=== PATIENT | male | born 1940 | race American Indian/Alaskan Native ===

== ENCOUNTER 2022-03-13 17:25 | Inpatient (IN) | payer MEDICARE ==
--- NOTE | 2022-03-13 18:04 | Emergency Department Report ---
ED General Adult HPI - General Chief complaint: Recheck/Abnormal Lab/Rx Stated complaint: ABNORMAL HEMOGLOBIN COUNT Time Seen by Provider: 03/13/22 17:52 Source: patient, EMS Mode of arrival: Stretcher Limitations: Physical Limitation - History of Present Illness Initial comments: THIS IS A 81 YEAR OLD MALE BROUGHT IN BY EMS; I RECEIVED REPORT FROM EMS. PER EMS, BROUGHT FROM EMS WITH CONCERN OF LOW HEMOGLOBIN THAT WAS CHECKED TODAY AT 6.4 AND PATIENT DENIES ANY COMPLAINTS. PATIENT HIMSELF DENIES ANY DISCOMFORT; DURING MY EVALUATION, PATIENT APPEARS TO BE AOX1. DON'T KNOW YEAR/MONTH, PRESIDENT, WHICH HOSPITAL HE IS AT. LOOKING AT THE PAPER WORK FROM [facility]IOR [facility], PATIENT HAVE MEDICAL HISTORY OF 1. CEREBRAL INFARCTION 2. HEMIPLEGIA, LEFT SIDE 3. DIABETES MELLITUS TYPE 2 4. MALIGNANT NEOPLASM OF PROSTATE 5. COGNITIVE COMMUNICATION DEFICIT 6. HYPERTENSION NO MEDICATION LIST; THEREFORE, UNKNOWN IF PATIENT ON ANTI-PLATELET/COAGULATION. Severity scale (0 -10): 0 - Related Data Allergies Allergy/AdvReac Type Severity Reaction Status Date / Time No Known Allergies Allergy Verified 03/13/22 21:19 ED Review of Systems ROS: Stated complaint: ABNORMAL HEMOGLOBIN COUNT Other details as noted in HPI Comment: All other systems reviewed and negative (DENIES ANY SYMPTOMS.) ED Past Medical Hx - Past Medical History Previous Medical History?: Yes Additional medical history: SEE HPI ED Physical Exam - General Limitations: Physical Limitation General appearance: alert, in no apparent distress - Head Head exam: Present: atraumatic, normocephalic, normal inspection - Eye Eye exam: Present: normal appearance, PERRL, EOMI Pupils: Present: normal accommodation - ENT ENT exam: Present: normal exam, mucous membranes dry - Neck Neck exam: Present: normal inspection, full ROM - Respiratory Respiratory exam: Present: normal lung sounds bilaterally. Absent: respiratory distress, wheezes, rales, rhonchi, stridor, accessory muscle use - Cardiovascular Cardiovascular Exam: Present: tachycardia, normal heart sounds - GI/Abdominal GI/Abdominal exam: Present: soft, normal bowel sounds. Absent: distended, tenderness, guarding, rebound, rigid - Back Exam Back exam: Present: normal inspection - Neurological Exam Neurological exam: Present: alert, altered (AOX1; UNKNOWN BASELINE.) - Psychiatric Psychiatric exam: Present: normal affect, normal mood - Skin Skin exam: Present: dry, normal color ED Course Vital Signs 03/13/22 03/13/22 03/13/22 17:27 22:06 22:11 Temperature 98.6 F 97.9 F Pulse Rate 120 H 123 H 117 H Respiratory 20 12 20 Rate Blood Pressure 101/59 Blood Pressure 110/70 [Left] O2 Sat by Pulse 99 Oximetry 03/13/22 03/13/22 22:15 22:21 Temperature 98.0 F Pulse Rate 126 H 124 H Respiratory 15 19 Rate Blood Pressure 105/68 105/68 Blood Pressure [Left] O2 Sat by Pulse 91 Oximetry - Reevaluation(s) Reevaluation #1: 03/13/22 20:00 BUN JUST MILDLY ELEVATED IN PATIENT WITH HG OF 6.4; DOUBT UGIB. THEREFORE WILL HOLD OFF PPI UNTIL OCCULT BLOOD TEST RESULT IS BACK WHICH I HAVE JUST PERFORMED. K LOW; WILL ORDER MG. WILL INITIATE TRANSFUSION. PATIENT WILL BE ADMITTED. STILL PENDING CT SCAN TO BE DONE FOR FURTHER EVALUATION OF CONSOLIDATION OF BILATERAL LUNGS. 03/13/22 20:02 03/13/22 21:06 STILL PENDING FOBT RESULT. 03/13/22 21:51 FOBT NEGATIVE; PENDING RN TO OBTAIN URINE WHICH PATIENT IS AWARE OF. 03/13/22 22:05 BNP ELEVATED; PATIENT DENIES SOB. WILL PAGE HOSPITALIST FOR ADMISSION FOR ANEMIA NOT 2/2 GIB AND ALSO HYPOKALEMIA. 03/13/22 22:[address] BUSBY WHO KINDLY ACCEPTED THE PATIENT. ED Medical Decision Making - Lab Data Result diagrams: 03/13/22 18:34 03/13/22 18:34 Critical care attestation.: If time is entered above; I have spent that time in minutes in the direct care of this critically ill patient, excluding procedure time. ED Disposition Clinical Impression: Hypokalemia, Normocytic anemia, not due to blood loss, CHF (congestive heart failure), Pleural effusion Disposition: ADMITTED INPATIENT Is pt being admited?: Yes Does the pt Need Aspirin: No Condition: Stable Referrals: PIERCE PHILLIPS MD [Primary Care Provider] - 3-5 Days Time of Disposition: 21:09
--- NOTE | 2022-03-13 18:29 | XRay Report ---
Chest single view INDICATION: Cough confusion IMPRESSION: Prominent consolidation involving both lower lungs, right worse than left. Signer Name: Andreas Merritt MD Signed: 03/13/2022 6:25 PM Workstation Name: [employer]
[2022-03-13 18:47] LABS: Hematocrit 20.1 % (30.3-42.9); Hemoglobin 6.4 gm/dl (10.1-14.3); Mean Corpuscular HGB Conc 32 % (30-34); Mean Corpuscular Volume 90 fl (79-97); Platelet Count 304 K/mm3 (140-440); Red Blood Count 2.23 M/mm3 (3.65-5.03)
[2022-03-13 18:49] LABS: Red Cell Distribution Width 20.1 % (13.2-15.2)
[2022-03-13 19:03] LABS: INR 1.15 (0.87-1.13)
[2022-03-13 19:04] LABS: Partial Thromboplastin Time 39.9 Sec. (24.2-36.6)
[2022-03-13 19:09] LABS: Blood Urea Nitrogen 18 mg/dL (7-17); Calcium 8.4 mg/dL (8.4-10.2); Hemolysis Index 2
[2022-03-13 19:10] LABS: BUN/Creatinine Ratio 30
--- NOTE | 2022-03-13 20:49 | Cat Scan Report ---
CT CHEST WITHOUT CONTRAST INDICATION / CLINICAL INFORMATION: BILATERAL CONSOLIDATION EVALUATION.. Pleural effusions TECHNIQUE: Axial CT images were obtained through the chest without contrast. All CT scans at this [facility] ation are performed using CT dose reduction for ALARA by means of automated exposure control. COMPARISON: None available. FINDINGS: HEART: Mildly enlarged. Suspect tiny pericardial effusion. CORONARY ARTERY CALCIFICATION: Present -- Moderate. THORACIC AORTA: No significant abnormality. MEDIASTINUM / BREANNE: No significant abnormality. PLEURA: Large bilateral pleural effusions, right greater than left. LUNGS: Dependent consolidation involving both lower lungs may be related to atelectasis given the siz e of bilateral pleural effusions. ADDITIONAL FINDINGS: None. UPPER ABDOMEN: Large hiatal hernia. SKELETAL SYSTEM: No significant abnormality. IMPRESSION: 1. Moderate to large bilateral pleural effusions, right greater than left. 2. Prominent hiatal hernia with evidence of mild gastroesophageal reflux. Bilateral areas of consolid ation within both lower lungs could be related to atelectasis however aspiration is difficult to comp letely exclude especially within the left lower lobe. Signer Name: Andreas Merritt MD Signed: 03/13/2022 8:44 PM Workstation Name: [employer]
[2022-03-13] MEDS: POTASSIUM CHLORIDE 10 MEQ 10 MEQ/100 ML BAG IV SCH (22:00)
[2022-03-13] MEDS ORDERED: POTASSIUM CHLORIDE ER 20 MEQ TAB PO ONE (22:08)
[2022-03-13] MEDS ORDERED: ACETAMINOPHEN 325 MG TAB PO PRN (22:40)
[2022-03-13] MEDS ORDERED: ONDANSETRON 4 MG/2 ML INJ IV PRN (22:40)
[2022-03-13] MEDS ORDERED: MORPHINE 4 MG/1 ML INJ IV PRN (22:40)
[2022-03-13] MEDS ORDERED: MAGNESIUM HYDROXIDE (MOM) ORAL LIQD UDC PO PRN (22:40)
[2022-03-13] MEDS ORDERED: MORPHINE 2 MG/1 ML INJ IV PRN (22:40)
--- NOTE | 2022-03-13 22:49 | History and Physical Report ---
History of Present Illness Date of examination: 03/13/22 Date of admission: 03/13/2022 Chief complaint: Altered Mental Status History of present illness: 81-year-old -[place] male resident of a residential with significant past medical history of hypertension, diabetes mellitus, CVA with left hemiparesis sent to the emergency room today for evaluation of changes in mental status and low hemoglobin. Routine labs were said to have been drawn at the residential patient was found to be anemic. There has been no history of GI bleed. It is not clear whether patient is on any nonsteroidal anti-inflammatory or any blood thinner as medication list is unavailable. There has been no history of fever or chills, no chest pain or shortness of breath, no headache or dizziness and no diaphoresis. Patient is not a very good historian however most of the history was obtained from the ER staff. Work-up in the emergency room today reveals hemoglobin of 6.4 and a potassium of 2.3 Patient is being prepared for packed red blood cell transfusion. Potassium will also be repleted. Past History Past Medical History: diabetes, hypertension, stroke (With left sided hemiparesis), other (H/O Prostate Ca.) Past Surgical History: Other (Unknown) Social history: other (Resides in a [facility]) Family history: no significant family history Medications and Allergies Allergies Allergy/AdvReac Type Severity Reaction Status Date / Time No Known Allergies Allergy Verified 03/13/22 21:19 Active Meds: Active Medications Acetaminophen (Acetaminophen 325 Mg Tab) 650 mg PO Q4H PRN PRN Reason: Pain MILD(1-3)/Fever >100.5/DIAZ Dextrose (Dextrose 50% In Water (25gm) 50 Ml Syringe) 50 ml IV Q30MIN PRN; Protocol PRN Reason: Hypoglycemia Heparin Sodium (Porcine) (Heparin 5,000 Unit/1 Ml Vial) 5,000 unit SUB-Q Q8HR IBRAHIMA Sodium Chloride (Nacl 0.9% 500 Ml) 500 mls @ 0 mls/hr IV ONCE ONE Stop: 03/13/22 23:08 Potassium Chloride (Kcl 10meq/100ml) 10 meq in 100 mls @ 100 mls/hr IV Q1H IBRAHIMA Stop: 03/14/22 01:59 Insulin Human Lispro (Insulin Lispro 100 Unit/Ml) 0 unit SUB-Q ACHS IBRAHIMA; Protocol Magnesium Hydroxide (Magnesium Hydroxide (Mom) Oral Liqd Udc) 30 ml PO Q4H PRN PRN Reason: Constipation Morphine Sulfate (Morphine 2 Mg/1 Ml Inj) 2 mg IV Q4H PRN PRN Reason: Pain, Moderate (4-6) Morphine Sulfate (Morphine 4 Mg/1 Ml Inj) 4 mg IV Q4H PRN PRN Reason: Pain , Severe (7-10) Ondansetron HCl (Ondansetron 4 Mg/2 Ml Inj) 4 mg IV Q8H PRN PRN Reason: Nausea And Vomiting Sodium Chloride (Sodium Chloride 0.9% 10 Ml Flush Syringe) 10 ml IV BID IBRAHIMA Sodium Chloride (Sodium Chloride 0.9% 10 Ml Flush Syringe) 10 ml IV PRN PRN PRN Reason: LINE FLUSH Review of Systems ROS unobtainable: due to mental status Exam - Constitutional Vitals: Temp Pulse Resp BP Pulse Ox 98.9 F 115 H 12 109/70 91 03/13/22 22:40 03/13/22 22:40 03/13/22 22:40 03/13/22 22:40 03/13/22 22:40 General appearance: Present: no acute distress, well-nourished, other (Moderate Pallor) - EENT Eyes: Present: PERRL, EOM intact. Absent: scleral icterus ENT: hearing intact, clear oral mucosa, dentition normal - Neck Neck: Present: supple, normal ROM - Respiratory Respiratory effort: normal Respiratory: bilateral: CTA - Cardiovascular Heart Sounds: Present: S1 & S2. Absent: gallop, systolic murmur, diastolic murmur, rub, click - Extremities Extremities: no ischemia, pulses intact, pulses symmetrical, No edema, normal temperature, normal color, Full ROM, abnormal (Left heel decubitus ulcer) Peripheral Pulses: within normal limits - Abdominal General gastrointestinal: Present: soft, non-tender, non-distended, normal bowel sounds. Absent: mass - Integumentary Integumentary: Present: clear, warm, dry, normal turgor. Absent: rash - Musculoskeletal Musculoskeletal: left sided weakness - Psychiatric Psychiatric: appropriate mood/affect, intact judgment & insight, memory intact, cooperative - Neurologic Neurologic: CNII-XII intact, other Results - Labs CBC & Chem 7: 03/13/22 18:34 09/15/22 18:34 Labs: Abnormal lab results 03/13/22 03/13/22 03/13/22 Range/Units 18:34 18:34 18:34 WBC 4.2 L (4.5-11.0) K/mm3 RBC 2.23 L (3.65-5.03) M/mm3 Hgb 6.4 L (10.1-14.3) gm/dl Hct 20.1 L (30.3-42.9) % RDW 20.1 H (13.2-15.2) % PT 16.0 H (12.2-14.9) Sec. INR 1.15 H (0.87-1.13) APTT 39.9 H (24.2-36.6) Sec. Potassium 2.3 L* (3.6-5.0) mmol/L Carbon Dioxide 33 H (22-30) mmol/L BUN 18 H (7-17) mg/dL NT-Pro-B Natriuret Pep (0-900) pg/mL Crossmatch 03/13/22 03/13/22 Range/Units 18:34 18:34 WBC (4.5-11.0) K/mm3 RBC (3.65-5.03) M/mm3 Hgb (10.1-14.3) gm/dl Hct (30.3-42.9) % RDW (13.2-15.2) % PT (12.2-14.9) Sec. INR (0.87-1.13) APTT (24.2-36.6) Sec. Potassium (3.6-5.0) mmol/L Carbon Dioxide (22-30) mmol/L BUN (7-17) mg/dL NT-Pro-B Natriuret Pep 2345 H (0-900) pg/mL Crossmatch See Detail Assessment and Plan Assessment: 1. Anemia-normocytic 2. Hypokalemia 3. History of CVA with left hemiparesis 4.. History of prostate cancer 5.. Diabetes mellitus 6. Hypertension-blood pressure stable 7. UTI Plan: 1. Patient admitted and will be prepared for packed red blood cell transfusion. Packed red blood cell transfusion etiology of anemia unclear. 2. Consult be placed to heme-onc for further evaluation and recommendations. 3. Potassium will be repleted and will monitor chemistry. 4. Attempts were made to get this comprehensive routine medications from the residential. We will resume as needed. 5. Patient placed on sliding scale insulin. Monitor Accu-Cheks closely. 6. Patient placed on empiric IV antibiotics for UTI DVT prophylaxis: Sequential compression device. CODE STATUS: Full code
[2022-03-13] MEDS ORDERED: SODIUM CHLORIDE 0.9% 500 ML 500 ML IV ONE (23:07)
[2022-03-13 23:25] LABS: Bacteria,Urine 3+ /HPF (Negative); Mucus,Urine FEW /HPF
[2022-03-13 23:28] LABS: Color,Urine Yellow (Yellow)
[2022-03-14] MEDS ORDERED: LIDOCAINE-MPF (1%) 10 MG/1 ML VIAL 5 ML INFILTRATI ONE (00:58)
[2022-03-14] MEDS: POTASSIUM CHLORIDE 10 MEQ 10 MEQ/100 ML BAG IV SCH ×3 (01:57→06:36)
[2022-03-14] MEDS ORDERED: POTASSIUM CHLORIDE ER 20 MEQ TAB PO ONE (02:30)
[2022-03-14] MEDS: HEPARIN 5,000 UNIT/1 ML VIAL SUB-Q SCH ×3 (06:37→22:26)
[2022-03-14 06:41] LABS: Basophils % (Auto) 0.2 % (0.0-1.8); Eosinophils % (Auto) 0.1 % (0.0-4.3); Hematocrit 25.6 % (30.3-42.9); Hemoglobin 8.1 gm/dl (10.1-14.3); Lymphocytes # (Auto) 0.8 K/mm3 (1.2-5.4); Lymphocytes % (Auto) 22.7 % (13.4-35.0); Mean Corpuscular HGB Conc 32 % (30-34); Mean Corpuscular Volume 90 fl (79-97); Monocytes # (Auto) 0.3 K/mm3 (0.0-0.8); Monocytes % (Auto) 9.7 % (0.0-7.3); Platelet Count 280 K/mm3 (140-440); Red Blood Count 2.83 M/mm3 (3.65-5.03); Red Cell Distribution Width 19.5 % (13.2-15.2)
[2022-03-14 06:57] LABS: Blood Urea Nitrogen 18 mg/dL (7-17); Calcium 8.1 mg/dL (8.4-10.2); Hemolysis Index 5
[2022-03-14 07:06] LABS: BUN/Creatinine Ratio 30
[2022-03-14] MEDS: INSULIN LISPRO 100 UNIT/ML SUB-Q SCH ×2 (07:30→11:30)
--- NOTE | 2022-03-14 08:18 | Hem/Onc Consultation ---
History of Present Illness - Reason for Consult Consult date: 03/14/22 Anemia - History of Present Illness Heme Consult CPT 33650 Dx Anemia This is a 81yo -[place] male resident of a skilled nursing who was transported to [facility] ED for altered mental status and anemia. Past medical history of hypertension, diabetes mellitus, and CVA with left hemiparesis. Routine labs were said to have been drawn at the skilled nursing patient was found to be anemic. No reports of GI bleed. It is not clear whether patient is on any nonsteroidal anti-inflammatory or any blood thinner as medication list is unavailable. Per chart review patient is not a very good historian however most of the history was obtained from the ER staff. Work-up in the emergency room today reveals hemoglobin of 6.4 and a potassium of 2.3. Hematology was consulted for evaluation of anemia. DATA REVIEWED BELOW IMP: Normocytic anemia with mild leukopenia No evidence of heme malignancy , r/o MM Coagulopathy, likely secondary to underlying liver dysfunction PLAN: Anemia work-up: SPEP w. DAR, LDH, retic, hgEP CT A/P r/o bleed, lymphadenopathy Transfuse 1 unit pRBC whenever HCT <23 Case d/w Dr. Baljeet Ochoa Laboratory Last Values WBC 3.4 K/mm3 (4.5-11.0) L 03/14/22 06:09 Hgb 8.1 gm/dl (10.1-14.3) L 03/14/22 06:09 Hct 25.6 % (30.3-42.9) L 03/14/22 06:09 MCV 90 fl (79-97) 03/14/22 06:09 Plt Count 280 K/mm3 (140-440) 03/14/22 06:09 Craig % (Auto) 9.7 % (0.0-7.3) H 03/14/22 06:09 Lymph # (Auto) 0.8 K/mm3 (1.2-5.4) L 03/14/22 06:09 PT 16.0 Sec. (12.2-14.9) H 03/13/22 18:34 INR 1.15 (0.87-1.13) H 03/13/22 18:34 APTT 39.9 Sec. (24.2-36.6) H 03/13/22 18:34 Creatinine 0.6 mg/dL (0.6-1.2) 03/14/22 06:09 Blood Type O POSITIVE 03/13/22 18:34 Antibody Screen Negative 03/13/22 18:34 Crossmatch See Detail 03/13/22 18:34 Past History Past Medical History: diabetes, hypertension, stroke (With left sided hemiparesis), other (H/O Prostate Ca.) Past Surgical History: Other (Unknown) Social history: other (Resides in a [facility]) Family history: no significant family history Medications and Allergies Allergies Allergy/AdvReac Type Severity Reaction Status Date / Time No Known Allergies Allergy Verified 03/13/22 21:19 Home Medications Medication Instructions Recorded Confirmed Last Taken Type No Known Home Medications [No 03/14/22 03/14/22 Unknown History Reported Home Medications] Active Meds: Active Medications Acetaminophen (Acetaminophen 325 Mg Tab) 650 mg PO Q4H PRN PRN Reason: Pain MILD(1-3)/Fever >100.5/DIAZ Ceftriaxone Sodium (Ceftriaxone 1 Gm Inj) 1 gm IM Q24H IBRAHIMA; Protocol Last Admin: 03/14/22 01:00 Dose: 1 gm Dextrose (Dextrose 50% In Water (25gm) 50 Ml Syringe) 0 ml IV Q30MIN PRN; Protocol PRN Reason: Hypoglycemia Heparin Sodium (Porcine) (Heparin 5,000 Unit/1 Ml Vial) 5,000 unit SUB-Q Q8HR IBRAHIMA Last Admin: 03/14/22 06:37 Dose: 5,000 unit Insulin Human Lispro (Insulin Lispro 100 Unit/Ml) 0 unit SUB-Q ACHS IBRAHIMA; Protocol Magnesium Hydroxide (Magnesium Hydroxide (Mom) Oral Liqd Udc) 30 ml PO Q4H PRN PRN Reason: Constipation Morphine Sulfate (Morphine 2 Mg/1 Ml Inj) 2 mg IV Q4H PRN PRN Reason: Pain, Moderate (4-6) Morphine Sulfate (Morphine 4 Mg/1 Ml Inj) 4 mg IV Q4H PRN PRN Reason: Pain , Severe (7-10) Ondansetron HCl (Ondansetron 4 Mg/2 Ml Inj) 4 mg IV Q8H PRN PRN Reason: Nausea And Vomiting Potassium Chloride (Potassium Chloride Er 20 Meq Tab) 40 meq PO Q4H IBRAHIAM Stop: 03/14/22 13:01 Sodium Chloride (Sodium Chloride 0.9% 10 Ml Flush Syringe) 10 ml IV BID IBRAHIMA Sodium Chloride (Sodium Chloride 0.9% 10 Ml Flush Syringe) 10 ml IV PRN PRN PRN Reason: LINE FLUSH Exam - Constitutional Vitals: Last Vital Signs Temp 98.2 F 03/14/22 05:13 Pulse 87 03/14/22 05:13 Resp 18 03/14/22 05:13 BP 105/74 03/14/22 05:13 Pulse Ox 96 03/14/22 05:13 Results - Labs lab Results: Laboratory Results - last 24 hr 03/13/22 03/13/22 03/13/22 18:34 18:34 18:34 WBC 4.2 L RBC 2.23 L Hgb 6.4 L Hct 20.1 L MCV 90 MCH 29 MCHC 32 RDW 20.1 H Plt Count 304 Lymph % (Auto) Craig % (Auto) Eos % (Auto) Baso % (Auto) Lymph # (Auto) Craig # (Auto) Eos # (Auto) Baso # (Auto) Seg Neutrophils % Seg Neutrophils # PT 16.0 H INR 1.15 H APTT 39.9 H Sodium 140 Potassium 2.3 L* Chloride 99.3 Carbon Dioxide 33 H Anion Gap 10 BUN 18 H Creatinine 0.6 Estimated GFR > 60 BUN/Creatinine Ratio 30 Glucose 97 Calcium 8.4 Magnesium NT-Pro-B Natriuret Pep Urine Color Urine Turbidity Specific [place] (Man) Ur Protein (Man) Ur Ketones (Man) Ur Nitrite (Man) Ur Reducing Substances Urine Bilirubin (Man) Urine Ictotest Leukocyte Esterase (Man) Urine WBC (Auto) Urine RBC (Auto) U Epithel Cells (Auto) Urine Bacteria (Auto) Urine RBC (Manual) Urine WBC Clumps Urine Mucus Urine Yeast (Budding) Blood Type Antibody Screen Crossmatch 03/13/22 03/13/22 03/13/22 18:34 18:34 20:08 WBC RBC Hgb Hct MCV MCH MCHC RDW Plt Count Lymph % (Auto) Craig % (Auto) Eos % (Auto) Baso % (Auto) Lymph # (Auto) Craig # (Auto) Eos # (Auto) Baso # (Auto) Seg Neutrophils % Seg Neutrophils # PT INR APTT Sodium Potassium Chloride Carbon Dioxide Anion Gap BUN Creatinine Estimated GFR BUN/Creatinine Ratio Glucose Calcium Magnesium 1.80 NT-Pro-B Natriuret Pep 2345 H Urine Color Urine Turbidity Specific [place] (Man) Ur Protein (Man) Ur Ketones (Man) Ur Nitrite (Man) Ur Reducing Substances Urine Bilirubin (Man) Urine Ictotest Leukocyte Esterase (Man) Urine WBC (Auto) Urine RBC (Auto) U Epithel Cells (Auto) Urine Bacteria (Auto) Urine RBC (Manual) Urine WBC Clumps Urine Mucus Urine Yeast (Budding) Blood Type O POSITIVE Antibody Screen Negative Crossmatch See Detail 03/13/22 03/14/22 03/14/22 Unknown 06:09 06:09 WBC 3.4 L RBC 2.83 L Hgb 8.1 L Hct 25.6 L MCV 90 MCH 29 MCHC 32 RDW 19.5 H Plt Count 280 Lymph % (Auto) 22.7 Craig % (Auto) 9.7 H Eos % (Auto) 0.1 Baso % (Auto) 0.2 Lymph # (Auto) 0.8 L Craig # (Auto) 0.3 Eos # (Auto) 0.0 Baso # (Auto) 0.0 Seg Neutrophils % 67.3 Seg Neutrophils # 2.3 PT INR APTT Sodium 141 Potassium 3.0 L D Chloride 98.4 Carbon Dioxide 33 H Anion Gap 13 BUN 18 H Creatinine 0.6 Estimated GFR > 60 BUN/Creatinine Ratio 30 Glucose 166 H Calcium 8.1 L Magnesium NT-Pro-B Natriuret Pep Urine Color Yellow Urine Turbidity Hazy Specific [place] (Man) 1.010 Ur Protein (Man) 1+ Ur Ketones (Man) Negative Ur Nitrite (Man) Negative Ur Reducing Substances Not Reportable Urine Bilirubin (Man) Negative Urine Ictotest Not Reportable Leukocyte Esterase (Man) Small Urine WBC (Auto) 183.0 H Urine RBC (Auto) 17.0 U Epithel Cells (Auto) 1.0 Urine Bacteria (Auto) 3+ Urine RBC (Manual) 5+ Urine WBC Clumps 2+ Urine Mucus Few Urine Yeast (Budding) 3+ Blood Type Antibody Screen Crossmatch
[2022-03-14] MEDS: POTASSIUM CHLORIDE ER 20 MEQ TAB PO SCH ×2 (09:40→14:37)
[2022-03-14] MEDS ORDERED: SODIUM CHLORIDE 0.9% 1000 ML 1,000 ML IV ONE (10:50)
--- NOTE | 2022-03-14 13:27 | Electrocardiograph Report ---
[facility] Test Date: 2022-03-14 Test Time: 07:53:34 Pat Name: ROBERTH THOMPSON Department: Room: A374 1 Gender: M Assistant Secretary: VICTOR M : 1940 Requested By: NGOZI AVILA Order Number: [id number] Reading MD: Mariella Chirinos Measurements Intervals Hugo Rate: 118 P: [place]: QRS: -4 QRSD: 100 T: QT: 427 QTc: 599 Interpretive Statements Atrial fibrillation with rapid ventricular rate Occasional ventricular premature complex Anterior infarct, old Prolonged QT interval No previous ECG available for comparison Electronically Signed On 03-14-2022 13:27:09 EDT by Mariella Chirinos
--- NOTE | 2022-03-14 14:20 | Discharge Summary ---
Providers - Providers Date of Admission: 03/13/22 22:41 Date of discharge: 03/14/22 Attending physician: JAN FINLEY MD 03/13/22 22:25 Consult to Wound/ET Nurse [CONS] Urgent Reason For Exam: wound eval 03/13/22 22:40 Consult to Physician [CONS] Routine Comment: Consulting Provider: GERARDO HASTINGS Physician Instructions: Reason For Exam: Anemia- Normocytic 03/13/22 22:41 Consult to Dietitian/Nutrition [CONS] Routine Physician Instructions: Reason For Exam: Reason for Consult: Diet education Primary care physician: PIERCE PHILLIPS MD Hospitalization Condition: Stable Disposition: 30 STILL A PATIENT Exam - Constitutional Vitals: Temp Pulse Resp BP Pulse Ox 97.0 F L 122 H 18 86/59 99 03/14/22 10:26 03/14/22 10:26 03/14/22 10:26 03/14/22 10:26 03/14/22 10:26 Plan Care Plan Goals: Please follow with your primary care provider. Please take all medications as they are prescribed to you. There was no observed bleeding during this hospitalization. Follow up with: PIERCE PHILLIPS MD [Primary Care Provider] - 3-5 Days Prescriptions: levoFLOXacin [Levaquin] 250 mg PO QDAY 5 Days #5 tablet
--- NOTE | 2022-03-14 14:55 | Cat Scan Report ---
CTA ABDOMEN AND PELVIS WITHOUT AND WITH IV CONTRAST INDICATION / CLINICAL INFORMATION: Rule out bleed, lymphadenopathy. OK to change per Dr. Ochoa.. TECHNIQUE: Axial CT images were obtained through the abdomen and pelvis before and after after injection of IV c ontrast. 3 plane MIP / 3D reconstructions were produced. All CT scans at this location are performed using CT dose reduction for ALARA by means of automated exposure control. Any percent stenosis measur ements are based on criteria similar to NASCET. COMPARISON: None available. FINDINGS: Aorta: Mild scattered atherosclerotic plaque without stenosis or aneurysm. Renal arteries: No significant abnormality. Celiac artery: Mild atherosclerotic plaque without flow-limiting stenosis or aneurysm. Superior Mesenteric Artery: Mild atheromatous plaque without flow-limiting stenosis or aneurysm. Inferior mesenteric artery: No significant abnormality. Right Iliac Arteries: Scattered atherosclerotic plaque without flow-limiting stenosis or aneurysm.. Left Iliac Arteries: Scattered atherosclerotic plaque without flow-limiting stenosis or aneurysm.. Additional Findings: Persistent small bilateral pleural effusions and bibasilar consolidations. High attenuation material in the gallbladder is likely contrast from the previous exam. IVC filter in plac e in the infrarenal IVC. Persistent large hiatal hernia. Skeletal Structures: No aggressive appearing bone lesions. Diffuse degenerative changes in the spine. IMPRESSION: 1. No definite bleeding in the abdomen or pelvis. No acute findings. 2. Persistent bilateral pleural effusions and lower lobe consolidations in the lungs. 3. Persistent large hiatal hernia. Signer Name: Nelson Ayala MD Signed: 03/14/2022 2:51 PM Workstation Name: [facility]
[2022-03-14] MEDS: cefTRIAXone/NS 1 GM/50 ML 1 GM/50 ML BAG IV SCH (22:25)
[2022-03-14] MEDS ORDERED: SODIUM CHLORIDE 0.9% 250ML 250 ML IV ONE (22:27)
[2022-03-14] MEDS ORDERED: SODIUM CHLORIDE 0.9% 500 ML 0 ML ONE (23:27)
[2022-03-14] MEDS ORDERED: METOPROLOL TARTRATE 5 MG/5 ML INJ IV ONE (23:35)
[2022-03-15] MEDS ORDERED: AMIODARONE 150 MG in DEXTROSE 5% IN WATER 97 ML IV ONE (00:12)
[2022-03-15] MEDS: INSULIN LISPRO 100 UNIT/ML SUB-Q SCH ×3 (00:12→11:50)
[2022-03-15] MEDS ORDERED: SODIUM CHLORIDE 0.9% 1000 ML 1,000 ML ONE (00:54)
[2022-03-15] MEDS ORDERED: SODIUM CHLORIDE 0.9% 250ML 250 ML IV ONE (00:54)
[2022-03-15] MEDS ORDERED: AMIODARONE 150 MG/100 ML-ED 150 MG/100 ML BAG IV ONE (01:25)
[2022-03-15] MEDS: AMIODARONE HCL 450 MG in DEXTROSE 5% IN WATER 241 ML IV SCH ×2 (02:25→14:02)
[2022-03-15 06:11] LABS: Hematocrit 17.2 % (35.5-45.6); Hemoglobin 5.5 gm/dl (11.8-15.2)
[2022-03-15] MEDS ORDERED: SODIUM CHLORIDE 0.9% 500 ML 500 ML IV NR ×2 (07:34→09:38)
--- NOTE | 2022-03-15 08:44 | Consultation ---
History of Present Illness Consult date: 03/15/22 History of present illness: 81-year-old -[place] male resident of a long-term with significant past medical history of hypertension, diabetes mellitus, CVA with left hemiparesis sent to the emergency room today for evaluation of changes in mental status and low hemoglobin. Routine labs were said to have been drawn at the long-term patient was found to be anemic. There has been no history of GI bleed. It is not clear whether patient is on any nonsteroidal anti-inflammatory or any blood thinner as medication list is unavailable. Patient has historyof prostate CA There has no history of fever or chills, no chest pain or shortness of breath, no headache or dizziness and no diaphoresis. Patient denies any history of smoking, alcohol or drug abuse. Used to work as brickmason apprentice. Not . Has four children. No known drug allergies. Work-up in the emergency room reveals hemoglobin of 6.4 and a potassium of 2.3 Patient received transfusion and Potassium supplemented. Patient sleeping but arousable. Patient weak, Patient is on room air. O2 saturation 92%. No acute respiratory distress at rest. Patient afebrile. No leukocytosis. Blood pressure 103/53. Pulse 111, Respirations 15. Patients SARS- COV -2 (PCR) positive. Chest xray 03/13/22 reported Prominent consolidation involving both lower lungs, right worse than left. CT of chest done 03/13/22 reported Moderate to large bilateral pleural effusions, right greater than left. Prominent hiatal hernia with evidence of mild gastroesophageal reflux. Bilateral areas of consolidation within both lower lungs could be related to atelectasis however aspiration is difficult to completely exclude especially within the left lower lobe. Patient is on ceftriaxone and famotidine. Recommend DVT prophylaxis. SCDs Recommend O2 2 litres via nasal canula. COVID precautions. Past History Past Medical History: diabetes, hypertension, stroke (With left sided hemiparesis), other (H/O Prostate Ca.) Past Surgical History: Other (Unknown) Social history: other (Resides in a Snf) Family history: no significant family history Medications and Allergies Allergies Allergy/AdvReac Type Severity Reaction Status Date / Time No Known Allergies Allergy Verified 03/13/22 21:19 Home Medications Medication Instructions Recorded Confirmed Last Taken Type Potassium Chloride 10 meq PO QDAY 14 Days #14 tab 03/14/22 Unknown Rx levoFLOXacin [Levaquin] 250 mg PO QDAY 5 Days #5 tablet 03/14/22 Unknown Rx Active Meds: Active Medications Acetaminophen (Acetaminophen 325 Mg Tab) 650 mg PO Q4H PRN PRN Reason: Pain MILD(1-3)/Fever >100.5/DIAZ Dextrose (Dextrose 50% In Water (25gm) 50 Ml Syringe) 0 ml IV Q30MIN PRN; Protocol PRN Reason: Hypoglycemia Famotidine (Famotidine 20 Mg/2 Ml Inj) 20 mg IV QDAY IBRAHIMA Ceftriaxone Sodium (Rocephin/Ns 1 Gm/50 Ml) 1 gm in 50 mls @ 100 mls/hr IV Q24H IBRAHIMA; Protocol Last Admin: 03/14/22 22:25 Dose: 100 mls/hr AMIODARONE HCL 450 mg/ (Dextrose) 250 mls @ 33.333 mls/hr IV DIRECT IBRAHIMA; Protocol Last Admin: 03/15/22 02:25 Dose: 1 mg/min, 33.333 mls/hr Sodium Chloride (Nacl 0.9% 500 Ml) 500 mls @ 0 mls/hr IV ONCE NR Stop: 03/15/22 18:00 Insulin Human Lispro (Insulin Lispro 100 Unit/Ml) 0 unit SUB-Q ACHS IBRAHIMA; Protocol Last Admin: 03/15/22 00:12 Dose: 2 unit Magnesium Hydroxide (Magnesium Hydroxide (Mom) Oral Liqd Udc) 30 ml PO Q4H PRN PRN Reason: Constipation Ondansetron HCl (Ondansetron 4 Mg/2 Ml Inj) 4 mg IV Q8H PRN PRN Reason: Nausea And Vomiting Potassium Chloride (Potassium Chloride Er 20 Meq Tab) 40 meq PO QDAY [facility] Sodium Chloride (Sodium Chloride 0.9% 10 Ml Flush Syringe) 10 ml IV BID IBRAHIMA Last Admin: 03/14/22 22:27 Dose: 10 ml Sodium Chloride (Sodium Chloride 0.9% 10 Ml Flush Syringe) 10 ml IV PRN PRN PRN Reason: LINE FLUSH Review of Systems All systems: negative Physical Examination Vital signs: Vital Signs Temp Pulse Resp BP Pulse Ox 98.6 F 120 H 20 110/70 99 03/13/22 17:27 03/13/22 17:27 03/13/22 17:27 03/13/22 17:27 09/15/22 17:27 General appearance: no acute distress, other (Weak, sleeping but arousable.) Eyes: non-icteric ENT: oropharynx dry Neck: supple, no JVD Ascultation: Bilateral: diminished breath sounds Cardiovascular: other (Tachycardia) Gastrointestinal: hypoactive bowel sounds, soft, non-tender Integumentary: normal Extremities: no cyanosis, no edema Musculoskeletal: no deformities Gait: other (Unable to evaluate at this time.) pupils equal and round, other (left hemipresis.) depressed Results - Laboratory Findings CBC and BMP: 03/15/22 05:11 03/14/22 13:17 PT/INR, D-dimer PT 16.0 Sec. (12.2-14.9) H 03/13/22 18:34 INR 1.15 (0.87-1.13) H 03/13/22 18:34 Abnormal lab findings: Abnormal Labs 03/13/22 03/13/22 03/13/22 18:34 18:34 18:34 WBC 4.2 L RBC 2.23 L Hgb 6.4 L Hct 20.1 L RDW 20.1 H Evans % (Auto) Lymph # (Auto) Percent Retic PT 16.0 H INR 1.15 H APTT 39.9 H Potassium 2.3 L* Carbon Dioxide 33 H BUN 18 H Glucose POC Glucose Calcium Lactate Dehydrogenase NT-Pro-B Natriuret Pep Urine WBC (Auto) SARS-CoV-2 (PCR) Crossmatch 03/13/22 03/13/22 03/13/22 18:34 18:34 Unknown WBC RBC Hgb Hct RDW Evans % (Auto) Lymph # (Auto) Percent Retic PT INR APTT Potassium Carbon Dioxide BUN Glucose POC Glucose Calcium Lactate Dehydrogenase NT-Pro-B Natriuret Pep 2345 H Urine WBC (Auto) 183.0 H SARS-CoV-2 (PCR) Crossmatch See Detail 03/14/22 03/14/22 03/14/22 06:09 06:09 07:09 WBC 3.4 L RBC 2.83 L Hgb 8.1 L Hct 25.6 L RDW 19.5 H Evans % (Auto) 9.7 H Lymph # (Auto) 0.8 L Percent Retic PT INR APTT Potassium 3.0 L D Carbon Dioxide 33 H BUN 18 H Glucose 166 H POC Glucose 151 H Calcium 8.1 L Lactate Dehydrogenase NT-Pro-B Natriuret Pep Urine WBC (Auto) SARS-CoV-2 (PCR) Crossmatch 03/14/22 03/14/22 03/14/22 11:09 13:17 13:17 WBC RBC Hgb Hct RDW Evans % (Auto) Lymph # (Auto) Percent Retic 2.62 H PT INR APTT Potassium 3.2 L Carbon Dioxide BUN Glucose POC Glucose 152 H Calcium Lactate Dehydrogenase 244 H NT-Pro-B Natriuret Pep Urine WBC (Auto) SARS-CoV-2 (PCR) Crossmatch 03/14/22 03/14/22 03/14/22 15:10 16:43 22:16 WBC RBC Hgb Hct RDW Evans % (Auto) Lymph # (Auto) Percent Retic PT INR APTT Potassium Carbon Dioxide BUN Glucose POC Glucose 131 H 199 H Calcium Lactate Dehydrogenase NT-Pro-B Natriuret Pep Urine WBC (Auto) SARS-CoV-2 (PCR) Positive A Crossmatch 03/14/22 03/15/22 23:26 05:11 WBC RBC Hgb 5.5 L* Hct 17.2 L* D RDW Evans % (Auto) Lymph # (Auto) Percent Retic PT INR APTT Potassium Carbon Dioxide BUN Glucose POC Glucose 158 H Calcium Lactate Dehydrogenase NT-Pro-B Natriuret Pep Urine WBC (Auto) SARS-CoV-2 (PCR) Crossmatch - Diagnostic Findings Chest x-ray: report reviewed, image reviewed CT scan - chest: report reviewed, image reviewed Additional studies: Chest single view 03/13/22 INDICATION: Cough confusion IMPRESSION: Prominent consolidation involving both lower lungs, right worse than left. CT CHEST WITHOUT CONTRAST 03/13/22 INDICATION / CLINICAL INFORMATION: BILATERAL CONSOLIDATION EVALUATION.. Pleural effusions TECHNIQUE: Axial CT images were obtained through the chest without contrast. All CT scans at this location are performed using CT dose reduction for ALARA by means of automated exposure control. COMPARISON: None available. FINDINGS: HEART: Mildly enlarged. Suspect tiny pericardial effusion. CORONARY ARTERY CALCIFICATION: Present -- Moderate. THORACIC AORTA: No significant abnormality. MEDIASTINUM / BREANNE: No significant abnormality. PLEURA: Large bilateral pleural effusions, right greater than left. LUNGS: Dependent consolidation involving both lower lungs may be related to atelectasis given the size of bilateral pleural effusions. ADDITIONAL FINDINGS: None. UPPER ABDOMEN: Large hiatal hernia. SKELETAL SYSTEM: No significant abnormality. IMPRESSION: 1. Moderate to large bilateral pleural effusions, right greater than left. 2. Prominent hiatal hernia with evidence of mild gastroesophageal reflux. Bilateral areas of consolidation within both lower lungs could be related to atelectasis however as piration is difficult to completely exclude especially within the left lower lobe. Assessment and Plan 81-year-old -[place] male resident of a long-term with significant past medical history of hypertension, diabetes mellitus, CVA with left hemiparesis sent to the emergency room today for evaluation of changes in mental status and low hemoglobin. Routine labs were said to have been drawn at the long-term patient was found to be anemic. There has been no history of GI bleed. It is not clear whether patient is on any nonsteroidal anti-inflammatory or any blood thinner as medication list is unavailable. Patient has historyof prostate CA There has no history of fever or chills, no chest pain or shortness of breath, no headache or dizziness and no diaphoresis. Patient denies any history of smoking, alcohol or drug abuse. Used to work as [employer]. Not . Has four children. No known drug allergies. Work-up in the emergency room reveals hemoglobin of 6.4 and a potassium of 2.3 Patient received transfusion and Potassium supplemented. Patient sleeping but arousable. Patient weak, Patient is on room air. O2 saturation 92%. No acute respiratory distress at rest. Patient afebrile. No leukocytosis. Blood pressure 103/53. Pulse 111, Respirations 15. Patients SARS- COV -2 (PCR) positive. Chest xray 03/13/22 reported Prominent consolidation involving both lower lungs, right worse than left. CT of chest done 03/13/22 reported Moderate to large bilateral pleural effusions, right greater than left. Prominent hiatal hernia with evidence of mild gastroesophageal reflux. Bilateral areas of consolidation within both lower lungs could be related to atelectasis however aspiration is difficult to completely exclude especially within the left lower lobe. Patient is on ceftriaxone and famotidine. Recommend DVT prophylaxis. SCDs Recommend O2 2 litres via nasal canula. COVID precautions. I spent critical care time of 40 minutes obtaining history, review the chart, examine the patient, review Chest xray, CAT scan of chest, lab results, talking to the nursing staff, respiratory therapy and work up plan of treatment in this critically ill patient. - Patient Problems (1) Normocytic anemia, not due to blood loss Current Visit: Yes Status: Acute Plan to address problem: Patient received blood transfusion. Patients HGB dropped again to day to 5.5. Recommend blood transfusion and Keep hgb above 7.0. Recommend to consult gastroenterology and hematology. (2) CHF (congestive heart failure) Current Visit: Yes Status: Acute Plan to address problem: Management as per cardiology. (3) Hypokalemia Current Visit: Yes Status: Acute Plan to address problem: Supplementing K+ Recommend to repeat BMP. (4) Pleural effusion Current Visit: Yes Status: Acute Plan to address problem: Recommend thoracentesis under ultrasound by interventional radiology when patient is more stable. (5) Coronavirus infection Current Visit: Yes Status: Acute Plan to address problem: Management as per infectious disease consultants. Recommend Hare virus precautions. (6) HTN (hypertension) Current Visit: Yes Status: Acute Plan to address problem: Management as per primary care. (7) Diabetes Current Visit: Yes Status: Acute Plan to address problem: Management as per primary care. (8) CVA (cerebral vascular accident) Current Visit: Yes Status: Acute Plan to address problem: History of CVA and left hemiplegia. Management as per primary care.
--- NOTE | 2022-03-15 09:47 | Electrocardiograph Report ---
[facility], [place] Test Date: 2022-03-14 Test Time: 21:23:38 Pat Name: ROBERTH THOMPSON Department: Room: A251 1 Gender: M Bellman Captain: [id number] : 1940 Requested By: JAN FINLEY Order Number: [id number] Reading MD: Silver Ackerman Measurements Intervals [place] Rate: 134 P: PA: QRS: 0 QRSD: 88 T: QT: 343 QTc: 512 Interpretive Statements Atrial fibrillation with rapid V-rate Low voltage, extremity leads Consider anterior infarct Nonspecific T abnormalities, lateral leads Compared to ECG 03/14/2022 07:53:34 Prolonged QT interval no longer present Myocardial infarct finding still present Electronically Signed On 03-15-2022 9:46:46 EDT by Silver Ackerman
[2022-03-15] MEDS ORDERED: POTASSIUM CHLORIDE ER 20 MEQ TAB PO SCH (10:00)
[2022-03-15] MEDS: FAMOTIDINE 20 MG/2 ML INJ IV SCH (10:39)
--- NOTE | 2022-03-15 11:58 | Progress Note ---
<FAHAD CRONIN - Last Filed: 03/15/22 16:48> Assessment and Plan Assessment and plan: This is a 81-year-old AA who reside in a detention with known past medical history of hypertension, diabetes mellitus, CVA with left hemiparesis, and prostate CA initially admitted to the floor for AMS and normocytic anemia. Patient ws transferred to the ICU on 03/14 for new onset Afib with RVR and hypotension Hospital Course to Date: 03/15: Patient remains in Afib, HR in the 90 to 110s, remains on amiodarone gtt. BP remains labile, not on any pressors. Hgb is 5.5 this am, no s/s of any active bleeding, 2units of PRBCs ordered, will hold AC for now. Hematology recommendations noted. Patient is also with low grade temp, remains on IV Rocephin for UTI, cultures and procal pending. COVID PCR came back positive, patient is stable on RA. Will continue to monitor for now. Cardiology consulted and [facility] is also following. Assessment and Plan #New Onset Atrial Fibrillation with RVR #H/o Hypertension -Remains in AFIB with RVR, BP labile -on Amiodarone gtt -Cardiology consulted -Hold all antihypertensive agents -Continue blood pressure monitor per protocol -Maintain MAP above 65 -Not a candidate for AC due to anemia #Normocytic anemia -Baseline hemoglobin unknown, presented with hemoglobin 6.4 -S/p 1 unit of PRBCs -CT angiogram of the abdomen pelvis did not reveal evidence of bleed, fecal occult negative -source of blood loss unknown -H&H dropped again this am -No s/s of any active bleeding, 2units of PRBCs ordered -Hematology oncology consulted, assistance appreciated -Stat labs pending #Bilateral Pleural Effusion #COVID infection -Remains stable on RA -PRN O2 supplemenation at 2L NC -CCM is following -Aspiration precaution -Continue SPO2 monitoring for SPO2 goal above 92% #Acute cystitis with hematuria #COVID infection -continue rocephin -Cultures pending, check procal -COVID PCR +, patient stable on RA -Continue to monitor #Hypokalemia -K-repleted, repeat labs pending -Continue to monitor and replace electrolytes as needed -may require supplementation after discharge #Prostate Cancer -Was on Bicalutamine at the detention -Med on hold for now -Continue supportive care #History of CVA with left hemiparesis -Chronic, continue supportive measures -Frequent reorientation -Avoid benzodiazepine to reduce the possibility of delirium -PRN Analgesia for pain control -Maintenance of sleep-wake cycle -Fall precautions #Type 2 Diabetes Mellitus -BG check and SSI ACHS -Avoid hypoglycemia -Hypoglycemic protocol #Advanced care planning -Disease education conducted, care plan discussed, diagnoses discussed, prognosis discussed, and patient acknowledges understanding with care plan #Discharge planning -Plan to discharge patient back to detention once clinically stable The high probability of a clinically significant, sudden or life threatening deterioration of the [multiple] system(s) required my full and direct attention, intervention and personal management. The aggregate critical care time was [60] minutes. This time is in addition to time spent performing reported procedures but includes the following: [x] Data Review and interpretation [x] Patient assessment and monitoring of vital signs [x] Documentation [x] Medication orders and management Disposition Plan: ICU Total Time Spent with Patient (Minutes): 60 History Interval history: Patient seen and examined at the bedside. Awake but confused, following simple commands, on RA. Denied any pain nor any discomfort at this time. In AFib RVR on the monitor, BP is labile. On Amiodarone gtt. No report of any s/s of any active bleeding. Hospitalist Physical - Constitutional Vitals: Temp Pulse Resp BP Pulse Ox 99.3 F 102 H 14 96/49 100 03/15/22 08:00 03/15/22 10:01 03/15/22 10:01 03/15/22 10:01 03/15/22 10:01 General appearance: Present: no acute distress, well-nourished - EENT Eyes: Present: PERRL ENT: hearing intact - Neck Neck: Present: normal ROM - Respiratory Respiratory effort: normal Respiratory: bilateral: diminished - Cardiovascular Rhythm: regular Heart Sounds: Present: S1 & S2 - Extremities Extremities: no ischemia, pulses intact, pulses symmetrical Extremity abnormal: edema - Peripheral Assessment Left Upper Extremity Edema Type: Pitting Edema Degree: 3+ Capillary Refill: < 3 seconds Skin Temperature: Warm Bilateral Lower Extremity Edema Type: Pitting Edema Degree: 2+ Capillary Refill: < 3 seconds Skin Temperature: Warm Generalized Edema Type: Non-pitting Edema Degree: 2+ Capillary Refill: < 3 seconds Skin Temperature: Warm Peripheral Pulses: within normal limits - Abdominal General gastrointestinal: soft, non-distended, normal bowel sounds - Integumentary Integumentary: Present: warm, dry - Psychiatric Psychiatric: appropriate mood/affect, cooperative, other (Confused) - Neurologic Neurologic: moves all extremities (LUE weakness), other (Bilateral foot drops) - Allied Health Allied health notes reviewed: nursing, case management Results - Labs CBC & Chem 7: 03/15/22 05:11 03/14/22 13:17 Labs: Laboratory Last Values WBC 3.4 K/mm3 (4.5-11.0) L 03/14/22 06:09 RBC 2.83 M/mm3 (3.65-5.03) L 03/14/22 06:09 Hgb 5.5 gm/dl (11.8-15.2) L* 03/15/22 05:11 Hct 17.2 % (35.5-45.6) L* D 03/15/22 05:11 MCV 90 fl (79-97) 03/14/22 06:09 MCH 29 pg (28-32) 03/14/22 06:09 MCHC 32 % (30-34) 03/14/22 06:09 RDW 19.5 % (13.2-15.2) H 03/14/22 06:09 Plt Count 280 K/mm3 (140-440) 03/14/22 06:09 Lymph % (Auto) 22.7 % (13.4-35.0) 03/14/22 06:09 Ness % (Auto) 9.7 % (0.0-7.3) H 03/14/22 06:09 Eos % (Auto) 0.1 % (0.0-4.3) 03/14/22 06:09 Baso % (Auto) 0.2 % (0.0-1.8) 03/14/22 06:09 Lymph # (Auto) 0.8 K/mm3 (1.2-5.4) L 03/14/22 06:09 Ness # (Auto) 0.3 K/mm3 (0.0-0.8) 03/14/22 06:09 Eos # (Auto) 0.0 K/mm3 (0.0-0.4) 03/14/22 06:09 Baso # (Auto) 0.0 K/mm3 (0.0-0.1) 03/14/22 06:09 Seg Neutrophils % 67.3 % (40.0-70.0) 03/14/22 06:09 Seg Neutrophils # 2.3 K/mm3 (1.8-7.7) 03/14/22 06:09 Percent Retic 2.62 % (0.78-2.58) H 03/14/22 13:17 PT 16.0 Sec. (12.2-14.9) H 03/13/22 18:34 INR 1.15 (0.87-1.13) H 03/13/22 18:34 APTT 39.9 Sec. (24.2-36.6) H 03/13/22 18:34 Sodium 141 mmol/L (137-145) 03/14/22 06:09 Potassium 3.2 mmol/L (3.6-5.0) L 03/14/22 13:17 Chloride 98.4 mmol/L (98-107) 03/14/22 06:09 Carbon Dioxide 33 mmol/L (22-30) H 03/14/22 06:09 Anion Gap 13 mmol/L 03/14/22 06:09 BUN 18 mg/dL (7-17) H 03/14/22 06:09 Creatinine 0.6 mg/dL (0.6-1.2) 03/14/22 06:09 Estimated GFR > 60 ml/min 03/14/22 06:09 BUN/Creatinine Ratio 30 % 03/14/22 06:09 Glucose 166 mg/dL (65-100) H 03/14/22 06:09 POC Glucose 158 mg/dL (70-105) H 03/14/22 23:26 Calcium 8.1 mg/dL (8.4-10.2) L 03/14/22 06:09 Magnesium 1.80 mg/dL (1.7-2.3) 03/13/22 20:08 Lactate Dehydrogenase 244 units/L (91-180) H 03/14/22 13:17 NT-Pro-B Natriuret Pep 2345 pg/mL (0-900) H 03/13/22 18:34 Urine Color Yellow (Yellow) 03/13/22 Unknown Urine Turbidity Hazy (Clear) 03/13/22 Unknown Specific [place] (Man) 1.010 (1.003-1.030) 03/13/22 Unknown Ur Protein (Man) 1+ mg/dL (Negative) 03/13/22 Unknown Ur Ketones (Man) Negative (Negative) 03/13/22 Unknown Ur Nitrite (Man) Negative (Negative) 03/13/22 Unknown Ur Reducing Substances Not Reportable 03/13/22 Unknown Urine Bilirubin (Man) Negative (Negative) 03/13/22 Unknown Urine Ictotest Not Reportable 03/13/22 Unknown Leukocyte Esterase (Man) Small (Negative) 03/13/22 Unknown Urine WBC (Auto) 183.0 /HPF (0.0-6.0) H 03/13/22 Unknown Urine RBC (Auto) 17.0 /HPF (0.0-6.0) 03/13/22 Unknown U Epithel Cells (Auto) 1.0 /HPF (0-13.0) 03/13/22 Unknown Urine Bacteria (Auto) 3+ /HPF (Negative) 03/13/22 Unknown Urine RBC (Manual) 5+ (Negative) 03/13/22 Unknown Urine WBC Clumps 2+ /HPF 03/13/22 Unknown Urine Mucus Few /HPF 03/13/22 Unknown Urine Yeast (Budding) 3+ /HPF 03/13/22 Unknown SARS-CoV-2 (PCR) Positive (Negative) A 03/14/22 15:10 Blood Type O POSITIVE 03/13/22 18:34 Antibody Screen Negative 03/13/22 18:34 Direct Antiglob Test Negative 03/15/22 05:11 CLEMENT, Poly Interpret Negative 03/15/22 05:11 Crossmatch See Detail 03/13/22 18:34 Bourne/IV: Voiding Method Condom Catheter Active Medications - Current Medications Current Medications: Generic Name Dose Route Start Last Admin Trade Name Freq PRN Reason Stop Dose Admin Acetaminophen 650 mg 03/13/22 22:40 Acetaminophen 325 Mg Tab PO Q4H PRN Pain MILD(1-3)/Fever >100.5/DIAZ Dextrose 0 ml 03/13/22 22:40 Dextrose 50% In Water (25gm) 50 Ml Syringe IV Q30MIN PRN Hypoglycemia Protocol Famotidine 20 mg 03/15/22 10:00 03/15/22 10:39 Famotidine 20 Mg/2 Ml Inj IV 20 mg QDAY IBRAHIMA Administration Ceftriaxone Sodium 1 gm in 50 mls @ 100 mls/hr 03/14/22 22:00 03/14/22 22:25 Rocephin/Ns 1 Gm/50 Ml IV 100 mls/hr Q24H IBRAHIMA Administration Protocol AMIODARONE HCL 450 mg/ 250 mls @ 33.333 mls/hr 03/15/22 01:08 03/15/22 08:30 Dextrose IV 0.5 mg/min DIRECT IBRAHIMA 16.667 mls/hr Infusion Protocol 1 MG/MIN Sodium Chloride 500 mls @ 0 mls/hr 03/15/22 07:34 Nacl 0.9% 500 Ml IV 03/15/22 18:00 ONCE NR As Directed Sodium Chloride 500 mls @ 0 mls/hr 03/15/22 09:38 Nacl 0.9% 500 Ml IV 03/15/22 20:00 ONCE NR As Directed Insulin Human Lispro 0 unit 03/14/22 07:30 03/15/22 00:12 Insulin Lispro 100 Unit/Ml SUB-Q 2 unit ACHS IBRAHIMA Administration Protocol Magnesium Hydroxide 30 ml 03/13/22 22:40 Magnesium Hydroxide (Mom) Oral Liqd Udc PO Q4H PRN Constipation Ondansetron HCl 4 mg 03/13/22 22:40 Ondansetron 4 Mg/2 Ml Inj IV Q8H PRN Nausea And Vomiting Potassium Chloride 40 meq 03/15/22 10:00 03/15/22 10:39 Potassium Chloride Er 20 Meq Tab PO 40 meq QDAY IBRAHIMA Administration Sodium Chloride 10 ml 03/14/22 10:00 03/15/22 10:39 Sodium Chloride 0.9% 10 Ml Flush Syringe IV 10 ml BID IBRAHIMA Administration Sodium Chloride 10 ml 03/13/22 22:40 Sodium Chloride 0.9% 10 Ml Flush Syringe IV PRN PRN LINE FLUSH Nutrition/Malnutrition Assess - Dietary Evaluation Nutrition/Malnutrition Findings: Nutrition Notes Start: 03/14/22 13:14 Freq: Status: Active Protocol: Document 03/14/22 13:14 ADDY (Rec: 03/14/22 13:30 ADDY [id number]) Nutrition Notes Need for Assessment generated from: MD Order,Education Initial or Follow up Brief Note Current Diagnosis Decubitus(Pressure Ulcer), Diabetes,Hypertension,Stroke Other Pertinent Diagnosis AMS, Anemia, Hypokalemia, UTI, Prostate Cancer. Current Diet Cardiac/Consistent Carbohydrates Diet (since B ). Labs/Tests 03/14: K 3.0, CO2 33, BUN 18, Glu 166. Pertinent Medications 03/14: Nutritionally unremarkable. 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 Weight Status Appropriate Subjective/Other Information RD consult for nutrition education assessment. No reports available on Pt's PO intake of meals at the time , will assess at F/U. Pt is on Room Air, O2 saturation @ 95%, according to Physical Assessment History notes. Pt shows sacral decubitus ulcer stage III, and Skin breakdown on heels, as signs of concern for skin risk at the time, according to Admission Documents. Pt is a SNF resident, Pt needs total assistance with ADL activities, not a candidate for Nutrition Education. Percent of energy/protein needs met: Prescribed Cardiac/Consistent Carbohydrates Diet provides for energy/protein needs (1, 977 Kcal/86 g) during LOS. Nutrition Intervention Follow-Up By: 03/21/22 Additional Comments Continue monitoring food tolerance, %PO intake of meals , and BM. <ABELARDO VALVERDE E - Last Filed: 03/16/22 12:36> Assessment and Plan Assessment and plan: I saw and evaluated the patient. I agree with the findings and the plan of care as documented in the Nurse Practitioner's~note, with the following corrections and additions. Hospitalist Physical - Constitutional Vitals: Temp Pulse Resp BP Pulse Ox 97.1 F L 58 L 12 125/100 55 L 03/16/22 12:00 03/16/22 12:30 03/16/22 12:30 03/16/22 12:10 03/16/22 12:10 Results - Labs CBC & Chem 7: 03/16/22 04:56 03/16/22 04:56 Labs: Laboratory Last Values WBC 4.6 K/mm3 (4.5-11.0) 03/16/22 04:56 RBC 2.66 M/mm3 (3.65-5.03) L 03/16/22 04:56 Hgb 7.8 gm/dl (11.8-15.2) L 03/16/22 04:56 Hct 23.9 % (35.5-45.6) L 03/16/22 04:56 MCV 90 fl (84-94) 03/16/22 04:56 MCH 29 pg (28-32) 03/16/22 04:56 MCHC 33 % (32-34) 03/16/22 04:56 RDW 17.6 % (13.2-15.2) H 03/16/22 04:56 Plt Count 223 K/mm3 (140-440) 03/16/22 04:56 Lymph % (Auto) 22.7 % (13.4-35.0) 03/14/22 06:09 Ness % (Auto) 9.7 % (0.0-7.3) H 03/14/22 06:09 Eos % (Auto) 0.1 % (0.0-4.3) 03/14/22 06:09 Baso % (Auto) 0.2 % (0.0-1.8) 03/14/22 06:09 Lymph # (Auto) 0.8 K/mm3 (1.2-5.4) L 03/14/22 06:09 Ness # (Auto) 0.3 K/mm3 (0.0-0.8) 03/14/22 06:09 Eos # (Auto) 0.0 K/mm3 (0.0-0.4) 03/14/22 06:09 Baso # (Auto) 0.0 K/mm3 (0.0-0.1) 03/14/22 06:09 Add Manual Diff Complete 03/15/22 21:31 Total Counted 100 03/15/22 21:31 Seg Neutrophils % Medical Consultant 03/15/22 21:31 Seg Neuts % (Manual) 98.0 % (40.0-70.0) H 03/15/22 21:31 Band Neutrophils % 0 % 03/15/22 21:31 Lymphocytes % (Manual) 2.0 % (13.4-35.0) L 03/15/22 21:31 Reactive Lymphs % (Man) 0 % 03/15/22 21:31 Monocytes % (Manual) 0 % (0.0-7.3) 03/15/22 21:31 Eosinophils % (Manual) 0 % (0.0-4.3) 03/15/22 21:31 Basophils % (Manual) 0 % (0.0-1.8) 03/15/22 21:31 Metamyelocytes % 0 % 03/15/22 21:31 Myelocytes % 0 % 03/15/22 21:31 Promyelocytes % 0 % 03/15/22 21:31 Blast Cells % 0 % 03/15/22 21:31 Nucleated RBC % Not Reportable 03/15/22 21:31 Seg Neutrophils # 2.3 K/mm3 (1.8-7.7) 03/14/22 06:09 Seg Neutrophils # Man 4.5 K/mm3 (1.8-7.7) 03/15/22 21:31 Band Neutrophils # 0.0 K/mm3 03/15/22 21:31 Lymphocytes # (Manual) 0.1 K/mm3 (1.2-5.4) L 03/15/22 21:31 Abs React Lymphs (Man) 0.0 K/mm3 03/15/22 21:31 Monocytes # (Manual) 0.0 K/mm3 (0.0-0.8) 03/15/22 21:31 Eosinophils # (Manual) 0.0 K/mm3 (0.0-0.4) 03/15/22 21:31 Basophils # (Manual) 0.0 K/mm3 (0.0-0.1) 03/15/22 21:31 Metamyelocytes # 0.0 K/mm3 03/15/22 21:31 Myelocytes # 0.0 K/mm3 03/15/22 21:31 Promyelocytes # 0.0 K/mm3 03/15/22 21:31 Blast Cells # 0.0 K/mm3 03/15/22 21:31 WBC Morphology Not Reportable 03/15/22 21:31 Hypersegmented Neuts Not Reportable 03/15/22 21:31 Hyposegmented Neuts Not Reportable 03/15/22 21:31 Hypogranular Neuts Not Reportable 03/15/22 21:31 Smudge Cells Not Reportable 03/15/22 21:31 Toxic Granulation Not Reportable 03/15/22 21:31 Toxic Vacuolation Not Reportable 03/15/22 21:31 Dohle Bodies Not Reportable 03/15/22 21:31 Pelger-Huet Anomaly Not Reportable 03/15/22 21:31 Charissa Rods Not Reportable 03/15/22 21:31 Platelet Estimate Consistent w auto 03/15/22 21:31 Clumped Platelets Not Reportable 03/15/22 21:31 Plt Clumps, EDTA Not Reportable 03/15/22 21:31 Large Platelets Not Reportable 03/15/22 21:31 Giant Platelets Not Reportable 03/15/22 21:31 Platelet Satelliting Not Reportable 03/15/22 21:31 Plt Morphology Comment Not Reportable 03/15/22 21:31 RBC Morphology Not Reportable 03/15/22 21:31 Dimorphic RBCs Not Reportable 03/15/22 21:31 Polychromasia Not Reportable 03/15/22 21:31 Hypochromasia Not Reportable 03/15/22 21:31 Poikilocytosis Not Reportable 03/15/22 21:31 Anisocytosis Not Reportable 03/15/22 21:31 Microcytosis Not Reportable 03/15/22 21:31 Macrocytosis Not Reportable 03/15/22 21:31 Spherocytes Not Reportable 03/15/22 21:31 Pappenheimer Bodies Not Reportable 03/15/22 21:31 Sickle Cells Not Reportable 03/15/22 21:31 Target Cells Not Reportable 03/15/22 21:31 Tear Drop Cells Not Reportable 03/15/22 21:31 Ovalocytes Not Reportable 03/15/22 21:31 Helmet Cells Not Reportable 03/15/22 21:31 [place] Bodies Not Reportable 03/15/22 21:31 [place] Rings Not Reportable 03/15/22 21:31 [place] Cells Not Reportable 03/15/22 21:31 Bite Cells Not Reportable 03/15/22 21:31 Crenated Cell Not Reportable 03/15/22 21:31 Elliptocytes Not Reportable 03/15/22 21:31 Acanthocytes (Spur) Not Reportable 03/15/22 21:31 Rouleaux Not Reportable 03/15/22 21:31 Hemoglobin C Crystals Not Reportable 03/15/22 21:31 Schistocytes Not Reportable 03/15/22 21:31 Malaria parasites Not Reportable 03/15/22 21:31 Percent Retic 2.62 % (0.78-2.58) H 03/14/22 13:17 Escobar Bodies Not Reportable 03/15/22 21:31 Hem Pathologist Commnt No 03/15/22 21:31 PT 16.0 Sec. (12.2-14.9) H 03/13/22 18:34 INR 1.15 (0.87-1.13) H 03/13/22 18:34 APTT 39.9 Sec. (24.2-36.6) H 03/13/22 18:34 Sodium 141 mmol/L (137-145) 03/16/22 04:56 Potassium 3.3 mmol/L (3.6-5.0) L 03/16/22 04:56 Chloride 104.5 mmol/L (98-107) 03/16/22 04:56 Carbon Dioxide 27 mmol/L (22-30) 03/16/22 04:56 Anion Gap 13 mmol/L 03/16/22 04:56 BUN 28 mg/dL (9-20) H 03/16/22 04:56 Creatinine 0.6 mg/dL (0.8-1.3) L 03/16/22 04:56 Estimated GFR > 60 ml/min 03/16/22 04:56 BUN/Creatinine Ratio 47 % 03/16/22 04:56 Glucose 68 mg/dL (75-100) L 03/16/22 04:56 POC Glucose 100 mg/dL (70-105) 03/16/22 08:26 Lactic Acid 2.60 mmol/L (0.7-2.0) H* 03/15/22 21:31 Calcium 8.1 mg/dL (8.4-10.2) L 03/16/22 04:56 Phosphorus 3.00 mg/dL (2.5-4.5) 03/16/22 04:56 Magnesium 1.70 mg/dL (1.7-2.3) 03/16/22 04:56 Total Bilirubin 0.50 mg/dL (0.1-1.2) 03/16/22 04:56 Direct Bilirubin < 0.2 mg/dL (0-0.2) 03/15/22 21:31 Indirect Bilirubin 0.3 mg/dL 03/15/22 21:31 AST 22 units/L (5-40) 03/16/22 04:56 ALT 25 units/L (7-56) 03/16/22 04:56 Alkaline Phosphatase 66 units/L (35-129) 03/16/22 04:56 Lactate Dehydrogenase 244 units/L (91-180) H 03/14/22 13:17 C-Reactive Protein 8.10 mg/dL (0.00-1.30) H 03/15/22 21:31 NT-Pro-B Natriuret Pep 2345 pg/mL (0-900) H 03/13/22 18:34 Total Protein 5.2 g/dL (6.3-8.2) L 03/16/22 04:56 Albumin 2.4 g/dL (3.9-5) L 03/16/22 04:56 Albumin/Globulin Ratio 0.9 % 03/16/22 04:56 TSH 1.320 mlU/mL (0.270-4.200) 03/16/22 04:56 Urine Color Yellow (Yellow) 03/13/22 Unknown Urine Turbidity Hazy (Clear) 03/13/22 Unknown Specific [place] (Man) 1.010 (1.003-1.030) 03/13/22 Unknown Ur Protein (Man) 1+ mg/dL (Negative) 03/13/22 Unknown Ur Ketones (Man) Negative (Negative) 03/13/22 Unknown Ur Nitrite (Man) Negative (Negative) 03/13/22 Unknown Ur Reducing Substances Not Reportable 03/13/22 Unknown Urine Bilirubin (Man) Negative (Negative) 03/13/22 Unknown Urine Ictotest Not Reportable 03/13/22 Unknown Leukocyte Esterase (Man) Small (Negative) 03/13/22 Unknown Urine WBC (Auto) 183.0 /HPF (0.0-6.0) H 03/13/22 Unknown Urine RBC (Auto) 17.0 /HPF (0.0-6.0) 03/13/22 Unknown U Epithel Cells (Auto) 1.0 /HPF (0-13.0) 03/13/22 Unknown Urine Bacteria (Auto) 3+ /HPF (Negative) 03/13/22 Unknown Urine RBC (Manual) 5+ (Negative) 03/13/22 Unknown Urine WBC Clumps 2+ /HPF 03/13/22 Unknown Urine Mucus Few /HPF 03/13/22 Unknown Urine Yeast (Budding) 3+ /HPF 03/13/22 Unknown SARS-CoV-2 (PCR) Positive (Negative) A 03/14/22 15:10 Blood Type O POSITIVE 03/13/22 18:34 Antibody Screen Negative 03/13/22 18:34 Direct Antiglob Test Negative 03/15/22 05:11 CLEMENT, Poly Interpret Negative 03/15/22 05:11 Crossmatch See Detail 03/13/22 18:34 Microbiology: Microbiology 03/15/22 21:53 Peripheral/Venous Blood Culture - Preliminary Culture in Progress 03/15/22 21:31 Peripheral/Venous Blood Culture - Preliminary Culture in Progress Bourne/IV: Voiding Method Condom Catheter Active Medications - Current Medications Current Medications: Generic Name Dose Route Start Last Admin Trade Name Freq PRN Reason Stop Dose Admin Acetaminophen 650 mg 03/13/22 22:40 Acetaminophen 325 Mg Tab PO Q4H PRN Pain MILD(1-3)/Fever >100.5/DIAZ Atorvastatin Calcium 40 mg 03/15/22 22:00 03/15/22 22:03 Atorvastatin 40 Mg Tab PO 40 mg QHS IBRAHIMA Administration Dextrose 0 ml 03/13/22 22:40 03/16/22 11:40 Dextrose 50% In Water (25gm) 50 Ml Syringe IV 50 ml Q30MIN PRN Administration Hypoglycemia Protocol Famotidine 20 mg 03/15/22 10:00 03/16/22 10:31 Famotidine 20 Mg/2 Ml Inj IV 20 mg QDAY IBRAHIMA Administration Ceftriaxone Sodium 1 gm in 50 mls @ 100 mls/hr 03/14/22 22:00 03/15/22 22:00 Rocephin/Ns 1 Gm/50 Ml IV 100 mls/hr Q24H IBRAHIMA Administration Protocol AMIODARONE HCL 450 mg/ 250 mls @ 33.333 mls/hr 03/15/22 01:08 03/16/22 06:00 Dextrose IV 0.5 mg/min DIRECT IBRAHIMA 16.667 mls/hr Administration Protocol 1 MG/MIN Sodium Chloride 1,000 mls @ 100 mls/hr 03/15/22 23:30 03/16/22 01:06 Nacl 0.9% 1000 Ml IV 03/17/22 09:29 100 mls/hr DIRECT IBRAHIMA Administration Insulin Human Lispro 0 unit 03/14/22 07:30 03/16/22 11:37 Insulin Lispro 100 Unit/Ml SUB-Q Not Given ACHS [facility] Protocol Magnesium Hydroxide 30 ml 03/13/22 22:40 Magnesium Hydroxide (Mom) Oral Liqd Udc PO Q4H PRN Constipation Metoprolol Tartrate 25 mg 03/16/22 13:00 Metoprolol Tartrate 25 Mg Tab PO BID IBRAHIMA Ondansetron HCl 4 mg 03/13/22 22:40 Ondansetron 4 Mg/2 Ml Inj IV Q8H PRN Nausea And Vomiting Potassium Chloride 40 meq 03/16/22 10:00 03/16/22 10:31 Potassium Chloride Er 20 Meq Tab PO 40 meq BID IBRAHIMA Administration Sodium Chloride 10 ml 03/14/22 10:00 03/16/22 10:31 Sodium Chloride 0.9% 10 Ml Flush Syringe IV 10 ml BID IBRAHIMA Administration Sodium Chloride 10 ml 03/13/22 22:40 Sodium Chloride 0.9% 10 Ml Flush Syringe IV PRN PRN LINE FLUSH Nutrition/Malnutrition Assess - Dietary Evaluation Nutrition/Malnutrition Findings: Nutrition Notes Start: 03/14/22 13:14 Freq: Status: Active Protocol: Document 03/14/22 13:14 ADDY (Rec: 03/14/22 13:30 ADDY [id number]) Nutrition Notes Need for Assessment generated from: MD Order,Education Initial or Follow up Brief Note Current Diagnosis Decubitus(Pressure Ulcer), Diabetes,Hypertension,Stroke Other Pertinent Diagnosis AMS, Anemia, Hypokalemia, UTI, Prostate Cancer. Current Diet Cardiac/Consistent Carbohydrates Diet (since B ). Labs/Tests 03/14: K 3.0, CO2 33, BUN 18, Glu 166. Pertinent Medications 03/14: Nutritionally unremarkable. 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 Weight Status Appropriate Subjective/Other Information RD consult for nutrition education assessment. No reports available on Pt's PO intake of meals at the time , will assess at F/U. Pt is on Room Air, O2 saturation @ 95%, according to Physical Assessment History notes. Pt shows sacral decubitus ulcer stage III, and Skin breakdown on heels, as signs of concern for skin risk at the time, according to Admission Documents. Pt is a SNF resident, Pt needs total assistance with ADL activities, not a candidate for Nutrition Education. Percent of energy/protein needs met: Prescribed Cardiac/Consistent Carbohydrates Diet provides for energy/protein needs (1, 977 Kcal/86 g) during LOS. Nutrition Intervention Follow-Up By: 03/21/22 Additional Comments Continue monitoring food tolerance, %PO intake of meals , and BM.
--- NOTE | 2022-03-15 12:27 | Progress Note ---
Assessment and Plan Assessment and plan: #Normocytic anemia -Baseline hemoglobin unknown, hemoglobin 6.4 -> 8.2 after 1 unit packed red cells -Hematology oncology consulted, assistance appreciated -CT angiogram of the abdomen pelvis did not reveal evidence of bleed, fecal occult negative -source of blood loss unknown -Hemolysis labs ordered #Hypotension #Hypertension -patient with low BP that is improved with fluid boluses -will continue to monitor #Acute cystitis with hematuria -continue rocephin #Hypokalemia -K 2.3 -> 3.0 -may require supplementation after discharge -will continue to replete and monitor #History of CVA with left hemiparesis -stable #Type 2 diabetes mellitus -continue SSI + accuchecks #Advanced care planning -Disease education conducted, care plan discussed, diagnoses discussed, prognosis discussed, and patient acknowledges understanding with care plan -Time: +30 min #Discharge planning -Plan [facility] to [facility] once clinically stable History Interval history: No acute events overnight. Patient seen and examined at bedside. Alert and oriented x3. He has no pain or discomfort at this time. Per nursing he had no bowel movement or overt bleeding. Hospitalist Physical - Physical exam Narrative exam: GENERAL: Well-developed well-nourished. In no acute distress. HEENT: Normocephalic. Atraumatic. NECK: Supple. CHEST/LUNGS: CTAB on room air HEART/CARDIOVASCULAR: RRR. No murmur, rubs or gallops appreciated. ABDOMEN: +BS. NT/ND. SKIN: BL heel pressure ulcers with pressure dressings. NEURO: Follows all commands. MUSCULOSKELETAL: No joint effusion EXTREMITIES: No cyanosis, clubbing or edema. PSYCH: Cooperative. - Constitutional Vitals: Temp Pulse Resp BP Pulse Ox 99.5 F 111 H 19 94/54 98 03/15/22 12:15 03/15/22 12:15 03/15/22 12:15 03/15/22 12:15 03/15/22 12:15 General appearance: Present: no acute distress, well-nourished, other (Moderate Pallor) Results - Labs CBC & Chem 7: 03/15/22 05:11 03/14/22 13:17 Labs: Laboratory Last Values WBC 3.4 K/mm3 (4.5-11.0) L 03/14/22 06:09 RBC 2.83 M/mm3 (3.65-5.03) L 03/14/22 06:09 Hgb 5.5 gm/dl (11.8-15.2) L* 03/15/22 05:11 Hct 17.2 % (35.5-45.6) L* D 03/15/22 05:11 MCV 90 fl (79-97) 03/14/22 06:09 MCH 29 pg (28-32) 03/14/22 06:09 MCHC 32 % (30-34) 03/14/22 06:09 RDW 19.5 % (13.2-15.2) H 03/14/22 06:09 Plt Count 280 K/mm3 (140-440) 03/14/22 06:09 Lymph % (Auto) 22.7 % (13.4-35.0) 03/14/22 06:09 [place] % (Auto) 9.7 % (0.0-7.3) H 03/14/22 06:09 Eos % (Auto) 0.1 % (0.0-4.3) 03/14/22 06:09 Baso % (Auto) 0.2 % (0.0-1.8) 03/14/22 06:09 Lymph # (Auto) 0.8 K/mm3 (1.2-5.4) L 03/14/22 06:09 [place] # (Auto) 0.3 K/mm3 (0.0-0.8) 03/14/22 06:09 Eos # (Auto) 0.0 K/mm3 (0.0-0.4) 03/14/22 06:09 Baso # (Auto) 0.0 K/mm3 (0.0-0.1) 03/14/22 06:09 Seg Neutrophils % 67.3 % (40.0-70.0) 03/14/22 06:09 Seg Neutrophils # 2.3 K/mm3 (1.8-7.7) 03/14/22 06:09 Percent Retic 2.62 % (0.78-2.58) H 03/14/22 13:17 PT 16.0 Sec. (12.2-14.9) H 03/13/22 18:34 INR 1.15 (0.87-1.13) H 03/13/22 18:34 APTT 39.9 Sec. (24.2-36.6) H 03/13/22 18:34 Sodium 141 mmol/L (137-145) 03/14/22 06:09 Potassium 3.2 mmol/L (3.6-5.0) L 03/14/22 13:17 Chloride 98.4 mmol/L (98-107) 03/14/22 06:09 Carbon Dioxide 33 mmol/L (22-30) H 03/14/22 06:09 Anion Gap 13 mmol/L 03/14/22 06:09 BUN 18 mg/dL (7-17) H 03/14/22 06:09 Creatinine 0.6 mg/dL (0.6-1.2) 03/14/22 06:09 Estimated GFR > 60 ml/min 03/14/22 06:09 BUN/Creatinine Ratio 30 % 03/14/22 06:09 Glucose 166 mg/dL (65-100) H 03/14/22 06:09 POC Glucose 158 mg/dL (70-105) H 03/14/22 23:26 Calcium 8.1 mg/dL (8.4-10.2) L 03/14/22 06:09 Magnesium 1.80 mg/dL (1.7-2.3) 03/13/22 20:08 Lactate Dehydrogenase 244 units/L (91-180) H 03/14/22 13:17 NT-Pro-B Natriuret Pep 2345 pg/mL (0-900) H 03/13/22 18:34 Urine Color Yellow (Yellow) 03/13/22 Unknown Urine Turbidity Hazy (Clear) 03/13/22 Unknown Specific [place] (Man) 1.010 (1.003-1.030) 03/13/22 Unknown Ur Protein (Man) 1+ mg/dL (Negative) 03/13/22 Unknown Ur Ketones (Man) Negative (Negative) 03/13/22 Unknown Ur Nitrite (Man) Negative (Negative) 03/13/22 Unknown Ur Reducing Substances Not Reportable 03/13/22 Unknown Urine Bilirubin (Man) Negative (Negative) 03/13/22 Unknown Urine Ictotest Not Reportable 03/13/22 Unknown Leukocyte Esterase (Man) Small (Negative) 03/13/22 Unknown Urine WBC (Auto) 183.0 /HPF (0.0-6.0) H 03/13/22 Unknown Urine RBC (Auto) 17.0 /HPF (0.0-6.0) 03/13/22 Unknown U Epithel Cells (Auto) 1.0 /HPF (0-13.0) 03/13/22 Unknown Urine Bacteria (Auto) 3+ /HPF (Negative) 03/13/22 Unknown Urine RBC (Manual) 5+ (Negative) 03/13/22 Unknown Urine WBC Clumps 2+ /HPF 03/13/22 Unknown Urine Mucus Few /HPF 03/13/22 Unknown Urine Yeast (Budding) 3+ /HPF 03/13/22 Unknown SARS-CoV-2 (PCR) Positive (Negative) A 03/14/22 15:10 Blood Type O POSITIVE 03/13/22 18:34 Antibody Screen Negative 03/13/22 18:34 Direct Antiglob Test Negative 03/15/22 05:11 CLEMENT, Poly Interpret Negative 03/15/22 05:11 Crossmatch See Detail 03/13/22 18:34 Bourne/IV: Voiding Method Condom Catheter Active Medications - Current Medications Current Medications: Generic Name Dose Route Start Last Admin Trade Name Freq PRN Reason Stop Dose Admin Acetaminophen 650 mg 03/13/22 22:40 Acetaminophen 325 Mg Tab PO Q4H PRN Pain MILD(1-3)/Fever >100.5/DIAZ Dextrose 0 ml 03/13/22 22:40 Dextrose 50% In Water (25gm) 50 Ml Syringe IV Q30MIN PRN Hypoglycemia Protocol Famotidine 20 mg 03/15/22 10:00 03/15/22 10:39 Famotidine 20 Mg/2 Ml Inj IV 20 mg QDAY IBRAHIMA Administration Ceftriaxone Sodium 1 gm in 50 mls @ 100 mls/hr 03/14/22 22:00 03/14/22 22:25 Rocephin/Ns 1 Gm/50 Ml IV 100 mls/hr Q24H IBRAHIMA Administration Protocol AMIODARONE HCL 450 mg/ 250 mls @ 33.333 mls/hr 03/15/22 01:08 03/15/22 08:30 Dextrose IV 0.5 mg/min DIRECT IBRAHIMA 16.667 mls/hr Infusion Protocol 1 MG/MIN Sodium Chloride 500 mls @ 0 mls/hr 03/15/22 07:34 Nacl 0.9% 500 Ml IV 03/15/22 18:00 ONCE NR As Directed Sodium Chloride 500 mls @ 0 mls/hr 03/15/22 09:38 Nacl 0.9% 500 Ml IV 03/15/22 20:00 ONCE NR As Directed Insulin Human Lispro 0 unit 03/14/22 07:30 03/15/22 00:12 Insulin Lispro 100 Unit/Ml SUB-Q 2 unit ACHS IBRAHIMA Administration Protocol Magnesium Hydroxide 30 ml 03/13/22 22:40 Magnesium Hydroxide (Mom) Oral Liqd Udc PO Q4H PRN Constipation Ondansetron HCl 4 mg 03/13/22 22:40 Ondansetron 4 Mg/2 Ml Inj IV Q8H PRN Nausea And Vomiting Potassium Chloride 40 meq 03/15/22 10:00 03/15/22 10:39 Potassium Chloride Er 20 Meq Tab PO 40 meq QDAY IBRAHIMA Administration Sodium Chloride 10 ml 03/14/22 10:00 03/15/22 10:39 Sodium Chloride 0.9% 10 Ml Flush Syringe IV 10 ml BID IBRAHIMA Administration Sodium Chloride 10 ml 03/13/22 22:40 Sodium Chloride 0.9% 10 Ml Flush Syringe IV PRN PRN LINE FLUSH Nutrition/Malnutrition Assess - Dietary Evaluation Nutrition/Malnutrition Findings: Nutrition Notes Start: 03/14/22 13:14 Freq: Status: Active Protocol: Document 03/14/22 13:14 ADDY (Rec: 03/14/22 13:30 ADDY [id number]) Nutrition Notes Need for Assessment generated from: MD Order,Education Initial or Follow up Brief Note Current Diagnosis Decubitus(Pressure Ulcer), Diabetes,Hypertension,Stroke Other Pertinent Diagnosis AMS, Anemia, Hypokalemia, UTI, Prostate Cancer. Current Diet Cardiac/Consistent Carbohydrates Diet (since B ). Labs/Tests 03/14: K 3.0, CO2 33, BUN 18, Glu 166. Pertinent Medications 03/14: Nutritionally unremarkable. Height 6 ft 2 in Weight 85.3 kg [place] Body Weight (kg) 86.36 BMI 24.1 Intake Prior to Admission Good Weight change and time frame Pt denies having loss body weight [employer]. Weight Status Appropriate Subjective/Other Information RD consult for nutrition education assessment. No reports available on Pt's PO intake of meals at the time , will assess at F/U. Pt is on Room Air, O2 saturation @ 95%, according to Physical Assessment History notes. Pt shows sacral decubitus ulcer stage III, and Skin breakdown on heels, as signs of concern for skin risk at the time, according to Admission Documents. Pt is a SNF resident, Pt needs total assistance with ADL activities, not a candidate for Nutrition Education. Percent of energy/protein needs met: Prescribed Cardiac/Consistent Carbohydrates Diet provides for energy/protein needs (1, 977 Kcal/86 g) during LOS. Nutrition Intervention Follow-Up By: 03/21/22 Additional Comments Continue monitoring food tolerance, %PO intake of meals , and BM.
--- NOTE | 2022-03-15 12:34 | Progress Note ---
Assessment and Plan Assessment and plan: #Normocytic anemia -Baseline hemoglobin unknown, hemoglobin 6.4 -> 8.2 after 1 unit packed red cells -Hematology oncology consulted, assistance appreciated -CT angiogram of the abdomen pelvis did not reveal evidence of bleed, fecal occult negative -source of blood loss unknown -Hemolysis labs ordered #Hypotension #Hypertension -patient with low BP that is improved with fluid boluses -will continue to monitor #Acute cystitis with hematuria -continue rocephin #Hypokalemia -K 2.3 -> 3.0 -may require supplementation after discharge -will continue to replete and monitor #History of CVA with left hemiparesis -stable #Type 2 diabetes mellitus -continue SSI + accuchecks #Advanced care planning -Disease education conducted, care plan discussed, diagnoses discussed, prognosis discussed, and patient acknowledges understanding with care plan -Time: +30 min #Discharge planning -Plan to discharge patient back to [facility] once clinically stable History Interval history: No acute events overnight. Patient seen and examined at bedside. Alert and oriented x3. He has no pain or discomfort at this time. Per nursing he had no bowel movement or overt bleeding. Hospitalist Physical - Physical exam Narrative exam: GENERAL: Well-developed well-nourished. In no acute distress. HEENT: Normocephalic. Atraumatic. NECK: Supple. CHEST/LUNGS: CTAB on room air HEART/CARDIOVASCULAR: RRR. No murmur, rubs or gallops appreciated. ABDOMEN: +BS. NT/ND. SKIN: BL heel pressure ulcers with pressure dressings. NEURO: Follows all commands. MUSCULOSKELETAL: No joint effusion EXTREMITIES: No cyanosis, clubbing or edema. PSYCH: Cooperative. - Constitutional Vitals: Temp Pulse Resp BP Pulse Ox 99 F 89 12 88/48 95 03/15/22 12:30 03/15/22 12:30 03/15/22 12:30 03/15/22 12:30 03/15/22 12:30 General appearance: Present: no acute distress, well-nourished, other (Moderate Pallor) Results - Labs CBC & Chem 7: 03/15/22 05:11 03/14/22 13:17 Labs: Laboratory Last Values WBC 3.4 K/mm3 (4.5-11.0) L 03/14/22 06:09 RBC 2.83 M/mm3 (3.65-5.03) L 03/14/22 06:09 Hgb 5.5 gm/dl (11.8-15.2) L* 03/15/22 05:11 Hct 17.2 % (35.5-45.6) L* D 03/15/22 05:11 MCV 90 fl (79-97) 03/14/22 06:09 MCH 29 pg (28-32) 03/14/22 06:09 MCHC 32 % (30-34) 03/14/22 06:09 RDW 19.5 % (13.2-15.2) H 03/14/22 06:09 Plt Count 280 K/mm3 (140-440) 03/14/22 06:09 Lymph % (Auto) 22.7 % (13.4-35.0) 03/14/22 06:09 [place] % (Auto) 9.7 % (0.0-7.3) H 03/14/22 06:09 Eos % (Auto) 0.1 % (0.0-4.3) 03/14/22 06:09 Baso % (Auto) 0.2 % (0.0-1.8) 03/14/22 06:09 Lymph # (Auto) 0.8 K/mm3 (1.2-5.4) L 03/14/22 06:09 [place] # (Auto) 0.3 K/mm3 (0.0-0.8) 03/14/22 06:09 Eos # (Auto) 0.0 K/mm3 (0.0-0.4) 03/14/22 06:09 Baso # (Auto) 0.0 K/mm3 (0.0-0.1) 03/14/22 06:09 Seg Neutrophils % 67.3 % (40.0-70.0) 03/14/22 06:09 Seg Neutrophils # 2.3 K/mm3 (1.8-7.7) 03/14/22 06:09 Percent Retic 2.62 % (0.78-2.58) H 03/14/22 13:17 PT 16.0 Sec. (12.2-14.9) H 03/13/22 18:34 INR 1.15 (0.87-1.13) H 03/13/22 18:34 APTT 39.9 Sec. (24.2-36.6) H 03/13/22 18:34 Sodium 141 mmol/L (137-145) 03/14/22 06:09 Potassium 3.2 mmol/L (3.6-5.0) L 03/14/22 13:17 Chloride 98.4 mmol/L (98-107) 03/14/22 06:09 Carbon Dioxide 33 mmol/L (22-30) H 03/14/22 06:09 Anion Gap 13 mmol/L 03/14/22 06:09 BUN 18 mg/dL (7-17) H 03/14/22 06:09 Creatinine 0.6 mg/dL (0.6-1.2) 03/14/22 06:09 Estimated GFR > 60 ml/min 03/14/22 06:09 BUN/Creatinine Ratio 30 % 03/14/22 06:09 Glucose 166 mg/dL (65-100) H 03/14/22 06:09 POC Glucose 158 mg/dL (70-105) H 03/14/22 23:26 Calcium 8.1 mg/dL (8.4-10.2) L 03/14/22 06:09 Magnesium 1.80 mg/dL (1.7-2.3) 03/13/22 20:08 Lactate Dehydrogenase 244 units/L (91-180) H 03/14/22 13:17 NT-Pro-B Natriuret Pep 2345 pg/mL (0-900) H 03/13/22 18:34 Urine Color Yellow (Yellow) 03/13/22 Unknown Urine Turbidity Hazy (Clear) 03/13/22 Unknown Specific [place] (Man) 1.010 (1.003-1.030) 03/13/22 Unknown Ur Protein (Man) 1+ mg/dL (Negative) 03/13/22 Unknown Ur Ketones (Man) Negative (Negative) 03/13/22 Unknown Ur Nitrite (Man) Negative (Negative) 03/13/22 Unknown Ur Reducing Substances Not Reportable 03/13/22 Unknown Urine Bilirubin (Man) Negative (Negative) 03/13/22 Unknown Urine Ictotest Not Reportable 03/13/22 Unknown Leukocyte Esterase (Man) Small (Negative) 03/13/22 Unknown Urine WBC (Auto) 183.0 /HPF (0.0-6.0) H 03/13/22 Unknown Urine RBC (Auto) 17.0 /HPF (0.0-6.0) 03/13/22 Unknown U Epithel Cells (Auto) 1.0 /HPF (0-13.0) 03/13/22 Unknown Urine Bacteria (Auto) 3+ /HPF (Negative) 03/13/22 Unknown Urine RBC (Manual) 5+ (Negative) 03/13/22 Unknown Urine WBC Clumps 2+ /HPF 03/13/22 Unknown Urine Mucus Few /HPF 03/13/22 Unknown Urine Yeast (Budding) 3+ /HPF 03/13/22 Unknown SARS-CoV-2 (PCR) Positive (Negative) A 03/14/22 15:10 Blood Type O POSITIVE 03/13/22 18:34 Antibody Screen Negative 03/13/22 18:34 Direct Antiglob Test Negative 03/15/22 05:11 CLEMENT, Poly Interpret Negative 03/15/22 05:11 Crossmatch See Detail 03/13/22 18:34 Bourne/IV: Voiding Method Condom Catheter Active Medications - Current Medications Current Medications: Generic Name Dose Route Start Last Admin Trade Name Freq PRN Reason Stop Dose Admin Acetaminophen 650 mg 03/13/22 22:40 Acetaminophen 325 Mg Tab PO Q4H PRN Pain MILD(1-3)/Fever >100.5/DIAZ Dextrose 0 ml 03/13/22 22:40 Dextrose 50% In Water (25gm) 50 Ml Syringe IV Q30MIN PRN Hypoglycemia Protocol Famotidine 20 mg 03/15/22 10:00 03/15/22 10:39 Famotidine 20 Mg/2 Ml Inj IV 20 mg QDAY IBRAHIMA Administration Ceftriaxone Sodium 1 gm in 50 mls @ 100 mls/hr 03/14/22 22:00 03/14/22 22:25 Rocephin/Ns 1 Gm/50 Ml IV 100 mls/hr Q24H IBRAHIMA Administration Protocol AMIODARONE HCL 450 mg/ 250 mls @ 33.333 mls/hr 03/15/22 01:08 03/15/22 08:30 Dextrose IV 0.5 mg/min DIRECT IBRAHIMA 16.667 mls/hr Infusion Protocol 1 MG/MIN Sodium Chloride 500 mls @ 0 mls/hr 03/15/22 07:34 Nacl 0.9% 500 Ml IV 03/15/22 18:00 ONCE NR As Directed Sodium Chloride 500 mls @ 0 mls/hr 03/15/22 09:38 Nacl 0.9% 500 Ml IV 03/15/22 20:00 ONCE NR As Directed Insulin Human Lispro 0 unit 03/14/22 07:30 03/15/22 00:12 Insulin Lispro 100 Unit/Ml SUB-Q 2 unit ACHS IBRAHIMA Administration Protocol Magnesium Hydroxide 30 ml 03/13/22 22:40 Magnesium Hydroxide (Mom) Oral Liqd Udc PO Q4H PRN Constipation Ondansetron HCl 4 mg 03/13/22 22:40 Ondansetron 4 Mg/2 Ml Inj IV Q8H PRN Nausea And Vomiting Potassium Chloride 40 meq 03/15/22 10:00 03/15/22 10:39 Potassium Chloride Er 20 Meq Tab PO 40 meq QDAY IBRAHIMA Administration Sodium Chloride 10 ml 03/14/22 10:00 03/15/22 10:39 Sodium Chloride 0.9% 10 Ml Flush Syringe IV 10 ml BID IBRAHIMA Administration Sodium Chloride 10 ml 03/13/22 22:40 Sodium Chloride 0.9% 10 Ml Flush Syringe IV PRN PRN LINE FLUSH Nutrition/Malnutrition Assess - Dietary Evaluation Nutrition/Malnutrition Findings: Nutrition Notes Start: 03/14/22 13:14 Freq: Status: Active Protocol: Document 03/14/22 13:14 ADDY (Rec: 03/14/22 13:30 ADDY [id number]) Nutrition Notes Need for Assessment generated from: MD Order,Education Initial or Follow up Brief Note Current Diagnosis Decubitus(Pressure Ulcer), Diabetes,Hypertension,Stroke Other Pertinent Diagnosis AMS, Anemia, Hypokalemia, UTI, Prostate Cancer. Current Diet Cardiac/Consistent Carbohydrates Diet (since B ). Labs/Tests 03/14: K 3.0, CO2 33, BUN 18, Glu 166. Pertinent Medications 03/14: Nutritionally unremarkable. Height 6 ft 2 in Weight 85.3 kg [place] Body Weight (kg) 86.36 BMI 24.1 Intake Prior to Admission Good Weight change and time frame Pt denies having loss body weight [employer]. Weight Status Appropriate Subjective/Other Information RD consult for nutrition education assessment. No reports available on Pt's PO intake of meals at the time , will assess at F/U. Pt is on Room Air, O2 saturation @ 95%, according to Physical Assessment History notes. Pt shows sacral decubitus ulcer stage III, and Skin breakdown on heels, as signs of concern for skin risk at the time, according to Admission Documents. Pt is a SNF resident, Pt needs total assistance with ADL activities, not a candidate for Nutrition Education. Percent of energy/protein needs met: Prescribed Cardiac/Consistent Carbohydrates Diet provides for energy/protein needs (1, 977 Kcal/86 g) during LOS. Nutrition Intervention Follow-Up By: 03/21/22 Additional Comments Continue monitoring food tolerance, %PO intake of meals , and BM.
--- NOTE | 2022-03-15 13:47 | Consultation ---
History of Present Illness Consult date: 03/15/22 Requesting physician: FAHAD CRONIN Consult reason: atrial fibrillation History of present illness: Pt is an 81-year-old male who was sent from longterm for evaluation of decline in mental status and low Hgb on labs drawn at nursing facility. Hgb 6.4g/dL upon arrival. No cardiac complaints reported. HPI augmented by chart review. Incidentally, pt has also tested positive for COVID-19. Cardiology has been consulted for new onset AF with RVR. Pt is hypotensive and was thus started on an IV Amiodarone drip. In AF 90-110s on telemetry today. IV Amio gtt infusing @ 0.5mg/min. Hgb continues to drop, 5.5g/dL on today's labs. Pt is previously unknown to our practice. Past History Past Medical History: diabetes, hypertension, stroke, other (prostate CA) Past Surgical History: Other (unknown) Social history: other (longterm resident) Family history: other (unknown) Medications and Allergies Allergies Allergy/AdvReac Type Severity Reaction Status Date / Time No Known Allergies Allergy Verified 03/13/22 21:19 Home Medications Medication Instructions Recorded Confirmed Last Taken Type Potassium Chloride 10 meq PO QDAY 14 Days #14 tab 03/14/22 Unknown Rx levoFLOXacin [Levaquin] 250 mg PO QDAY 5 Days #5 tablet 03/14/22 Unknown Rx Amlodipine Besylate [Norvasc] 10 mg PO DAILY 03/15/22 03/15/22 Unknown History Bicalutamide 50 mg PO DAILY 03/15/22 03/15/22 Unknown History Clopidogrel [Plavix] 75 mg PO DAILY 03/15/22 03/15/22 Unknown History Insulin Lispro [Admelog] See Protocol 03/15/22 Unknown History Linagliptin [Tradjenta] 5 mg PO QDAY 03/15/22 03/15/22 Unknown History Pantoprazole [Protonix TAB] 40 tab PO DAILY 03/15/22 03/15/22 Unknown History Rosuvastatin Calcium [Crestor] 40 mg PO 03/15/22 Unknown History hydroCHLOROthiazide 12.5 mg PO 03/15/22 Unknown History [Hydrochlorothiazide] Active Meds: Active Medications Acetaminophen (Acetaminophen 325 Mg Tab) 650 mg PO Q4H PRN PRN Reason: Pain MILD(1-3)/Fever >100.5/DIAZ Dextrose (Dextrose 50% In Water (25gm) 50 Ml Syringe) 0 ml IV Q30MIN PRN; Protocol PRN Reason: Hypoglycemia Famotidine (Famotidine 20 Mg/2 Ml Inj) 20 mg IV QDAY [facility] Last Admin: 03/15/22 10:39 Dose: 20 mg Ceftriaxone Sodium (Rocephin/Ns 1 Gm/50 Ml) 1 gm in 50 mls @ 100 mls/hr IV Q24H IBRAHIMA; Protocol Last Admin: 03/14/22 22:25 Dose: 100 mls/hr AMIODARONE HCL 450 mg/ (Dextrose) 250 mls @ 33.333 mls/hr IV DIRECT IBRAHIMA; Protocol Last Infusion: 03/15/22 08:30 Dose: 0.5 mg/min, 16.667 mls/hr Sodium Chloride (Nacl 0.9% 500 Ml) 500 mls @ 0 mls/hr IV ONCE NR Stop: 03/15/22 18:00 Sodium Chloride (Nacl 0.9% 500 Ml) 500 mls @ 0 mls/hr IV ONCE NR Stop: 03/15/22 20:00 Insulin Human Lispro (Insulin Lispro 100 Unit/Ml) 0 unit SUB-Q ACHS IBRAHIMA; Protocol Last Admin: 03/15/22 00:12 Dose: 2 unit Magnesium Hydroxide (Magnesium Hydroxide (Mom) Oral Liqd Udc) 30 ml PO Q4H PRN PRN Reason: Constipation Ondansetron HCl (Ondansetron 4 Mg/2 Ml Inj) 4 mg IV Q8H PRN PRN Reason: Nausea And Vomiting Potassium Chloride (Potassium Chloride Er 20 Meq Tab) 40 meq PO QDAY IBRAHIMA Last Admin: 03/15/22 10:39 Dose: 40 meq Sodium Chloride (Sodium Chloride 0.9% 10 Ml Flush Syringe) 10 ml IV BID IBRAHIMA Last Admin: 03/15/22 10:39 Dose: 10 ml Sodium Chloride (Sodium Chloride 0.9% 10 Ml Flush Syringe) 10 ml IV PRN PRN PRN Reason: LINE FLUSH Review of Systems ROS unobtainable: due to mental status Physical Examination Vital Signs Temp Pulse Resp BP Pulse Ox 98.6 F 120 H 20 110/70 99 03/13/22 17:27 03/13/22 17:27 03/13/22 17:27 03/13/22 17:27 03/13/22 17:27 General appearance: no acute distress Cardiac: Positive: irregularly irregular Results 03/15/22 05:11 03/14/22 13:17 Cardiac Enzymes 03/14/22 Range/Units 13:17 Lactate Dehydrogenase 244 H (91-180) units/L CBC 03/15/22 Range/Units 05:11 Hgb 5.5 L* (11.8-15.2) gm/dl Hct 17.2 L* D (35.5-45.6) % Comprehensive Metabolic Panel 03/14/22 Range/Units 13:17 Potassium 3.2 L (3.6-5.0) mmol/L - Imaging and Cardiology Echo: pending EKG: report reviewed, image reviewed EKG interpretations - Telemetry EKG Rhythm: Atrial Fibrillation - EKG Supraventricular dysrhythmia: atrial fibrillation Repolarization changes or abnormalities: nonspecific abnormality, ST segment, and/or T wave Assessment and Plan Assessment: Altered Mental Status COVID-19 Infection Moderate-Large Bilateral Pleural Effusions Severe Anemia New Onset AF with RVR Hypokalemia Hypotension H/o HTN DM2 H/o CVA w/Residual L-Sided Hemiparesis Prostate CA (on Lupron per outpatient records) Plan: Check Mg & TSH. KCl repletion underway per Primary. Continue IV Amiodarone gtt for now. Anticoagulation deferred in light of severe anemia. Pt seen in conjunction with Dr. Brooks, who agrees with the assessment and plan of care. - Patient Problems (1) Atrial fibrillation with RVR Current Visit: Yes Status: Acute (2) Severe anemia Current Visit: Yes Status: Acute (3) Hypotension Current Visit: Yes Status: Acute (4) COVID-19 Current Visit: Yes Status: Acute (5) Bilateral pleural effusion Current Visit: Yes Status: Acute
[2022-03-15] MEDS: cefTRIAXone/NS 1 GM/50 ML 1 GM/50 ML BAG IV SCH (22:00)
[2022-03-15 22:26] LABS: Hematocrit 26.1 % (35.5-45.6); Hemoglobin 8.5 gm/dl (11.8-15.2); Mean Corpuscular HGB Conc 33 % (32-34); Mean Corpuscular Volume 89 fl (84-94); Platelet Count 211 K/mm3 (140-440); Red Blood Count 2.93 M/mm3 (3.65-5.03); Red Cell Distribution Width 17.6 % (13.2-15.2)
[2022-03-15 22:43] LABS: Blood Urea Nitrogen 32 mg/dL (9-20); Calcium 8.1 mg/dL (8.4-10.2); Hemolysis Index 7
[2022-03-15 22:44] LABS: BUN/Creatinine Ratio 46
[2022-03-15 22:47] LABS: Alanine Aminotransferase 27 units/L (7-56); Albumin 2.5 g/dL (3.9-5)
[2022-03-15 22:50] LABS: Bilirubin,Direct < 0.2 mg/dL (0-0.2)
[2022-03-15 23:06] LABS: Basophils % (Manual) 0 % (0.0-1.8); Eosinophils % (Manual) 0 % (0.0-4.3); Monocytes % (Manual) 0 % (0.0-7.3); Total Cells Counted 100
[2022-03-15 23:07] LABS: Platelet Estimate Consistent w Auto
[2022-03-15] MEDS ORDERED: SODIUM CHLORIDE 0.9% 1000 ML 1,000 ML IV SCH (23:30)
[2022-03-15] MEDS ORDERED: POTASSIUM CHLORIDE ER 20 MEQ TAB PO ONE (23:57)
[2022-03-15] MEDS ORDERED: POTASSIUM CHLORIDE 10 MEQ 10 MEQ/100 ML BAG IV ONE (23:59)
[2022-03-16] MEDS: INSULIN LISPRO 100 UNIT/ML SUB-Q SCH ×6 (05:08→23:01)
[2022-03-16] MEDS: AMIODARONE HCL 450 MG in DEXTROSE 5% IN WATER 241 ML IV SCH (06:00)
[2022-03-16 06:27] LABS: Hematocrit 23.9 % (35.5-45.6); Hemoglobin 7.8 gm/dl (11.8-15.2); Mean Corpuscular HGB Conc 33 % (32-34); Mean Corpuscular Volume 90 fl (84-94); Platelet Count 223 K/mm3 (140-440); Red Blood Count 2.66 M/mm3 (3.65-5.03); Red Cell Distribution Width 17.6 % (13.2-15.2)
[2022-03-16 06:35] LABS: Alanine Aminotransferase 25 units/L (7-56); Albumin 2.4 g/dL (3.9-5); Blood Urea Nitrogen 28 mg/dL (9-20); Calcium 8.1 mg/dL (8.4-10.2); Hemolysis Index 4
[2022-03-16 06:53] LABS: BUN/Creatinine Ratio 47
[2022-03-16] MEDS: DEXTROSE 50% IN WATER (25GM) 50 ML SYRINGE IV PRN ×3 (07:44→16:43)
[2022-03-16] MEDS ORDERED: MAGNESIUM SULFATE 2 GM/50 ML BAG IV ONE (08:00)
[2022-03-16] MEDS: POTASSIUM CHLORIDE ER 20 MEQ TAB PO SCH ×2 (10:31→23:04)
[2022-03-16] MEDS: FAMOTIDINE 20 MG/2 ML INJ IV SCH (10:31)
--- NOTE | 2022-03-16 11:31 | Progress Note ---
<FAHAD CRONIN - Last Filed: 03/16/22 15:40> Assessment and Plan Assessment and plan: This is a 81-year-old AA who reside in a long-term with known past medical history of hypertension, diabetes mellitus, CVA with left hemiparesis, and prostate CA initially admitted to the floor for AMS and normocytic anemia. Patient ws transferred to the ICU on 03/14 for new onset Afib with RVR and hypotension Hospital Course to Date: 03/15: Patient remains in Afib, HR in the 90 to 110s, remains on amiodarone gtt. BP remains labile, not on any pressors. Hgb is 5.5 this am, no s/s of any active bleeding, 2units of PRBCs ordered, will hold AC for now. Hematology recommendations noted. Patient is also with low grade temp, remains on IV Rocephin for UTI, cultures and procal pending. COVID PCR came back positive, patient is stable on RA. Will continue to monitor for now. Cardiology consulted and [facility] is also following. 03/16: Remains in AFIB, control rate this morning. Still on Amiodarone gtt. Patie nt remains afebrile, VSS. BB added per Cardio. S/p 2Units of PRBCs orvernight, H&H stable this am. No report of any s/s of any active bleeding. Hematology is following. Will continue to trend H&H, transfuse for H&H less than 7. Hypoglycemic this am, treated per hypoglycemic protocol. Encourage PO, nutrition consulted. K and mag repleted, continue to monitor and replace electrolytes as needed. Assessment and Plan #New Onset Atrial Fibrillation with RVR #H/o Hypertension -Remains in AFIB with RVR, BP labile -on Amiodarone gtt -Cardiology consulted -BB added BID -Hold all antihypertensive agents -Continue blood pressure monitor per protocol -Maintain MAP above 65 -Not a candidate for AC due to anemia #Normocytic anemia -Baseline hemoglobin unknown, presented with hemoglobin 6.4 -S/p 3 unit of PRBCs -CT angiogram of the abdomen pelvis did not reveal evidence of bleed, fecal occult negative -source of blood loss unknown -H&H stable this am -No s/s of any active bleeding -Hematology oncology consulted, assistance appreciated -transfuse for hgb less than 7 #Bilateral Pleural Effusion #COVID infection -Remains stable on 2L NC -Continue O2 supplemenation and wean as tolerated -CCM is following -Aspiration precaution -Continue SPO2 monitoring for SPO2 goal above 92% #Acute cystitis with hematuria #COVID infection -continue rocephin -Cultures pending, check procal -COVID PCR +, patient stable on 2L NC -Continue to monitor #Hypokalemia -K-repleted, repeat labs pending -Continue to monitor and replace electrolytes as needed -may require supplementation after discharge #Prostate Cancer -Was on Bicalutamine at the long-term -Med on hold for now -Continue supportive care #History of CVA with left hemiparesis -Chronic, continue supportive measures -Frequent reorientation -Avoid benzodiazepine to reduce the possibility of delirium -PRN Analgesia for pain control -Maintenance of sleep-wake cycle -Fall precautions #Type 2 Diabetes Mellitus -BG check and SSI ACHS -Avoid hypoglycemia -Hypoglycemic protocol #Advance Care Planning - Disease education data, care plan, diagnoses, and prognosis were discussed with the patient's son, Naeem Parks. Patient is a FULL code. Patient's son acknowledged understanding and agreed with current care plan. #Discharge planning -Plan to discharge patient back to long-term once clinically stable The high probability of a clinically significant, sudden or life threatening deterioration of the [multiple] system(s) required my full and direct attention, intervention and personal management. The aggregate critical care time was [60] minutes. This time is in addition to time spent performing reported procedures but includes the following: [x] Data Review and interpretation [x] Patient assessment and monitoring of vital signs [x] Documentation [x] Medication orders and management Disposition Plan: ICU Total Time Spent with Patient (Minutes): 60 History Interval history: Patient seen and examined at the bedside. Mentation is unchanged, stable on 2L NC. Denied any pain nor any discomfort at this time. In AFib on the monitor, rate control HR in the 70-80s, VSS. Patient remains on Amiodarone gtt. TWAN overnight Hospitalist Physical - Physical exam Narrative exam: General appearance: Present: no acute distress, well-nourished - EENT Eyes: Present: PERRL ENT: hearing intact - Neck Neck: Present: normal ROM - Respiratory Respiratory effort: normal Respiratory: bilateral: diminished - Cardiovascular Rhythm: regular Heart Sounds: Present: S1 & S2 - Extremities Extremities: no ischemia, pulses intact, pulses symmetrical Extremity abnormal: edema - Peripheral Assessment Left Upper Extremity Edema Type: Pitting Edema Degree: 3+ Capillary Refill: < 3 seconds Skin Temperature: Warm Bilateral Lower Extremity Edema Type: Pitting Edema Degree: 2+ Capillary Refill: < 3 seconds Skin Temperature: Warm Generalized Edema Type: Non-pitting Edema Degree: 2+ Capillary Refill: < 3 seconds Skin Temperature: Warm Peripheral Pulses: within normal limits - Abdominal General gastrointestinal: soft, non-distended, normal bowel sounds - Integumentary Integumentary: Present: warm, dry - Psychiatric Psychiatric: appropriate mood/affect, cooperative, other (Confused) - Neurologic Neurologic: moves all extremities (LUE weakness), other (Bilateral foot drops) - Allied Health Allied health notes reviewed: nursing, case management - Constitutional Vitals: Temp Pulse Resp BP Pulse Ox 98.9 F 130 H 11 L 131/63 95 03/16/22 08:00 03/16/22 11:00 03/16/22 11:00 03/16/22 11:00 03/16/22 08:00 Results - Labs CBC & Chem 7: 03/16/22 04:56 03/16/22 04:56 Labs: Laboratory Last Values WBC 4.6 K/mm3 (4.5-11.0) 03/16/22 04:56 RBC 2.66 M/mm3 (3.65-5.03) L 03/16/22 04:56 Hgb 7.8 gm/dl (11.8-15.2) L 03/16/22 04:56 Hct 23.9 % (35.5-45.6) L 03/16/22 04:56 MCV 90 fl (84-94) 03/16/22 04:56 MCH 29 pg (28-32) 03/16/22 04:56 MCHC 33 % (32-34) 03/16/22 04:56 RDW 17.6 % (13.2-15.2) H 03/16/22 04:56 Plt Count 223 K/mm3 (140-440) 03/16/22 04:56 Lymph % (Auto) 22.7 % (13.4-35.0) 03/14/22 06:09 Knott % (Auto) 9.7 % (0.0-7.3) H 03/14/22 06:09 Eos % (Auto) 0.1 % (0.0-4.3) 03/14/22 06:09 Baso % (Auto) 0.2 % (0.0-1.8) 03/14/22 06:09 Lymph # (Auto) 0.8 K/mm3 (1.2-5.4) L 03/14/22 06:09 Knott # (Auto) 0.3 K/mm3 (0.0-0.8) 03/14/22 06:09 Eos # (Auto) 0.0 K/mm3 (0.0-0.4) 03/14/22 06:09 Baso # (Auto) 0.0 K/mm3 (0.0-0.1) 03/14/22 06:09 Add Manual Diff Complete 03/15/22 21:31 Total Counted 100 03/15/22 21:31 Seg Neutrophils % Drill Bit Sharpener 03/15/22 21:31 Seg Neuts % (Manual) 98.0 % (40.0-70.0) H 03/15/22 21:31 Band Neutrophils % 0 % 03/15/22 21:31 Lymphocytes % (Manual) 2.0 % (13.4-35.0) L 03/15/22 21:31 Reactive Lymphs % (Man) 0 % 03/15/22 21:31 Monocytes % (Manual) 0 % (0.0-7.3) 03/15/22 21:31 Eosinophils % (Manual) 0 % (0.0-4.3) 03/15/22 21:31 Basophils % (Manual) 0 % (0.0-1.8) 03/15/22 21:31 Metamyelocytes % 0 % 03/15/22 21:31 Myelocytes % 0 % 03/15/22 21:31 Promyelocytes % 0 % 03/15/22 21:31 Blast Cells % 0 % 03/15/22 21:31 Nucleated RBC % Not Reportable 03/15/22 21:31 Seg Neutrophils # 2.3 K/mm3 (1.8-7.7) 03/14/22 06:09 Seg Neutrophils # Man 4.5 K/mm3 (1.8-7.7) 03/15/22 21:31 Band Neutrophils # 0.0 K/mm3 03/15/22 21:31 Lymphocytes # (Manual) 0.1 K/mm3 (1.2-5.4) L 03/15/22 21:31 Abs React Lymphs (Man) 0.0 K/mm3 03/15/22 21:31 Monocytes # (Manual) 0.0 K/mm3 (0.0-0.8) 03/15/22 21:31 Eosinophils # (Manual) 0.0 K/mm3 (0.0-0.4) 03/15/22 21:31 Basophils # (Manual) 0.0 K/mm3 (0.0-0.1) 03/15/22 21:31 Metamyelocytes # 0.0 K/mm3 03/15/22 21:31 Myelocytes # 0.0 K/mm3 03/15/22 21:31 Promyelocytes # 0.0 K/mm3 03/15/22 21:31 Blast Cells # 0.0 K/mm3 03/15/22 21:31 WBC Morphology Not Reportable 03/15/22 21:31 Hypersegmented Neuts Not Reportable 03/15/22 21:31 Hyposegmented Neuts Not Reportable 03/15/22 21:31 Hypogranular Neuts Not Reportable 03/15/22 21:31 Smudge Cells Not Reportable 03/15/22 21:31 Toxic Granulation Not Reportable 03/15/22 21:31 Toxic Vacuolation Not Reportable 03/15/22 21:31 Dohle Bodies Not Reportable 03/15/22 21:31 Pelger-Huet Anomaly Not Reportable 03/15/22 21:31 Charissa Rods Not Reportable 03/15/22 21:31 Platelet Estimate Consistent w auto 03/15/22 21:31 Clumped Platelets Not Reportable 03/15/22 21:31 Plt Clumps, EDTA Not Reportable 03/15/22 21:31 Large Platelets Not Reportable 03/15/22 21:31 Giant Platelets Not Reportable 03/15/22 21:31 Platelet Satelliting Not Reportable 03/15/22 21:31 Plt Morphology Comment Not Reportable 03/15/22 21:31 RBC Morphology Not Reportable 03/15/22 21:31 Dimorphic RBCs Not Reportable 03/15/22 21:31 Polychromasia Not Reportable 03/15/22 21:31 Hypochromasia Not Reportable 03/15/22 21:31 Poikilocytosis Not Reportable 03/15/22 21:31 Anisocytosis Not Reportable 03/15/22 21:31 Microcytosis Not Reportable 03/15/22 21:31 Macrocytosis Not Reportable 03/15/22 21:31 Spherocytes Not Reportable 03/15/22 21:31 Pappenheimer Bodies Not Reportable 03/15/22 21:31 Sickle Cells Not Reportable 03/15/22 21:31 Target Cells Not Reportable 03/15/22 21:31 Tear Drop Cells Not Reportable 03/15/22 21:31 Ovalocytes Not Reportable 03/15/22 21:31 Helmet Cells Not Reportable 03/15/22 21:31 [place] Bodies Not Reportable 03/15/22 21:31 Fedora Rings Not Reportable 03/15/22 21:31 Zaira Cells Not Reportable 03/15/22 21:31 Bite Cells Not Reportable 03/15/22 21:31 Crenated Cell Not Reportable 03/15/22 21:31 Elliptocytes Not Reportable 03/15/22 21:31 Acanthocytes (Spur) Not Reportable 03/15/22 21:31 Rouleaux Not Reportable 03/15/22 21:31 Hemoglobin C Crystals Not Reportable 03/15/22 21:31 Schistocytes Not Reportable 03/15/22 21:31 Malaria parasites Not Reportable 03/15/22 21:31 Percent Retic 2.62 % (0.78-2.58) H 03/14/22 13:17 Escobar Bodies Not Reportable 03/15/22 21:31 Hem Pathologist Commnt No 03/15/22 21:31 PT 16.0 Sec. (12.2-14.9) H 03/13/22 18:34 INR 1.15 (0.87-1.13) H 03/13/22 18:34 APTT 39.9 Sec. (24.2-36.6) H 03/13/22 18:34 Sodium 141 mmol/L (137-145) 03/16/22 04:56 Potassium 3.3 mmol/L (3.6-5.0) L 03/16/22 04:56 Chloride 104.5 mmol/L (98-107) 03/16/22 04:56 Carbon Dioxide 27 mmol/L (22-30) 03/16/22 04:56 Anion Gap 13 mmol/L 03/16/22 04:56 BUN 28 mg/dL (9-20) H 03/16/22 04:56 Creatinine 0.6 mg/dL (0.8-1.3) L 03/16/22 04:56 Estimated GFR > 60 ml/min 03/16/22 04:56 BUN/Creatinine Ratio 47 % 03/16/22 04:56 Glucose 68 mg/dL (75-100) L 03/16/22 04:56 POC Glucose 100 mg/dL (70-105) 03/16/22 08:26 Lactic Acid 2.60 mmol/L (0.7-2.0) H* 03/15/22 21:31 Calcium 8.1 mg/dL (8.4-10.2) L 03/16/22 04:56 Phosphorus 3.00 mg/dL (2.5-4.5) 03/16/22 04:56 Magnesium 1.70 mg/dL (1.7-2.3) 03/16/22 04:56 Total Bilirubin 0.50 mg/dL (0.1-1.2) 03/16/22 04:56 Direct Bilirubin < 0.2 mg/dL (0-0.2) 03/15/22 21:31 Indirect Bilirubin 0.3 mg/dL 03/15/22 21:31 AST 22 units/L (5-40) 03/16/22 04:56 ALT 25 units/L (7-56) 03/16/22 04:56 Alkaline Phosphatase 66 units/L (35-129) 03/16/22 04:56 Lactate Dehydrogenase 244 units/L (91-180) H 03/14/22 13:17 C-Reactive Protein 8.10 mg/dL (0.00-1.30) H 03/15/22 21:31 NT-Pro-B Natriuret Pep 2345 pg/mL (0-900) H 03/13/22 18:34 Total Protein 5.2 g/dL (6.3-8.2) L 03/16/22 04:56 Albumin 2.4 g/dL (3.9-5) L 03/16/22 04:56 Albumin/Globulin Ratio 0.9 % 03/16/22 04:56 TSH 1.320 mlU/mL (0.270-4.200) 03/16/22 04:56 Urine Color Yellow (Yellow) 03/13/22 Unknown Urine Turbidity Hazy (Clear) 03/13/22 Unknown Specific [place] (Man) 1.010 (1.003-1.030) 03/13/22 Unknown Ur Protein (Man) 1+ mg/dL (Negative) 03/13/22 Unknown Ur Ketones (Man) Negative (Negative) 03/13/22 Unknown Ur Nitrite (Man) Negative (Negative) 03/13/22 Unknown Ur Reducing Substances Not Reportable 03/13/22 Unknown Urine Bilirubin (Man) Negative (Negative) 03/13/22 Unknown Urine Ictotest Not Reportable 03/13/22 Unknown Leukocyte Esterase (Man) Small (Negative) 03/13/22 Unknown Urine WBC (Auto) 183.0 /HPF (0.0-6.0) H 03/13/22 Unknown Urine RBC (Auto) 17.0 /HPF (0.0-6.0) 03/13/22 Unknown U Epithel Cells (Auto) 1.0 /HPF (0-13.0) 03/13/22 Unknown Urine Bacteria (Auto) 3+ /HPF (Negative) 03/13/22 Unknown Urine RBC (Manual) 5+ (Negative) 03/13/22 Unknown Urine WBC Clumps 2+ /HPF 03/13/22 Unknown Urine Mucus Few /HPF 03/13/22 Unknown Urine Yeast (Budding) 3+ /HPF 03/13/22 Unknown SARS-CoV-2 (PCR) Positive (Negative) A 03/14/22 15:10 Blood Type O POSITIVE 03/13/22 18:34 Antibody Screen Negative 03/13/22 18:34 Direct Antiglob Test Negative 03/15/22 05:11 LCEMENT, Poly Interpret Negative 03/15/22 05:11 Crossmatch See Detail 03/13/22 18:34 Microbiology: Microbiology 03/15/22 21:53 Peripheral/Venous Blood Culture - Preliminary Culture in Progress 03/15/22 21:31 Peripheral/Venous Blood Culture - Preliminary Culture in Progress Bourne/IV: Voiding Method Condom Catheter Active Medications - Current Medications Current Medications: Generic Name Dose Route Start Last Admin Trade Name Freq PRN Reason Stop Dose Admin Acetaminophen 650 mg 03/13/22 22:40 Acetaminophen 325 Mg Tab PO Q4H PRN Pain MILD(1-3)/Fever >100.5/DIAZ Atorvastatin Calcium 40 mg 03/15/22 22:00 03/15/22 22:03 Atorvastatin 40 Mg Tab PO 40 mg QHS IBRAHIMA Administration Dextrose 0 ml 03/13/22 22:40 03/16/22 07:44 Dextrose 50% In Water (25gm) 50 Ml Syringe IV 50 ml Q30MIN PRN Administration Hypoglycemia Protocol Famotidine 20 mg 03/15/22 10:00 03/16/22 10:31 Famotidine 20 Mg/2 Ml Inj IV 20 mg QDAY IBRAHIMA Administration Ceftriaxone Sodium 1 gm in 50 mls @ 100 mls/hr 03/14/22 22:00 03/15/22 22:00 Rocephin/Ns 1 Gm/50 Ml IV 100 mls/hr Q24H IBRAHIMA Administration Protocol AMIODARONE HCL 450 mg/ 250 mls @ 33.333 mls/hr 03/15/22 01:08 03/16/22 06:00 Dextrose IV 0.5 mg/min DIRECT IBRAHIMA 16.667 mls/hr Administration Protocol 1 MG/MIN Sodium Chloride 1,000 mls @ 100 mls/hr 03/15/22 23:30 03/16/22 01:06 Nacl 0.9% 1000 Ml IV 03/17/22 09:29 100 mls/hr DIRECT IBRAHIMA Administration Insulin Human Lispro 0 unit 03/14/22 07:30 03/16/22 07:55 Insulin Lispro 100 Unit/Ml SUB-Q Not Given ACHS IBRAHIMA Protocol Magnesium Hydroxide 30 ml 03/13/22 22:40 Magnesium Hydroxide (Mom) Oral Liqd Udc PO Q4H PRN Constipation Ondansetron HCl 4 mg 03/13/22 22:40 Ondansetron 4 Mg/2 Ml Inj IV Q8H PRN Nausea And Vomiting Potassium Chloride 40 meq 03/16/22 10:00 03/16/22 10:31 Potassium Chloride Er 20 Meq Tab PO 40 meq BID IBRAHIMA Administration Sodium Chloride 10 ml 03/14/22 10:00 03/16/22 10:31 Sodium Chloride 0.9% 10 Ml Flush Syringe IV 10 ml BID IBRAHIMA Administration Sodium Chloride 10 ml 09/15/22 22:40 Sodium Chloride 0.9% 10 Ml Flush Syringe IV PRN PRN LINE FLUSH Nutrition/Malnutrition Assess - Dietary Evaluation Nutrition/Malnutrition Findings: Nutrition Notes Start: 03/14/22 13:14 Freq: Status: Active Protocol: Document 03/14/22 13:14 ADDY (Rec: 03/14/22 13:30 ADDY [id number]) Nutrition Notes Need for Assessment generated from: MD Order,Education Initial or Follow up Brief Note Current Diagnosis Decubitus(Pressure Ulcer), Diabetes,Hypertension,Stroke Other Pertinent Diagnosis AMS, Anemia, Hypokalemia, UTI, Prostate Cancer. Current Diet Cardiac/Consistent Carbohydrates Diet (since B ). Labs/Tests 03/14: K 3.0, CO2 33, BUN 18, Glu 166. Pertinent Medications 03/14: Nutritionally unremarkable. Height 6 ft 2 in Weight 85.3 kg [place] Body Weight (kg) 86.36 BMI 24.1 Intake Prior to Admission Good Weight change and time frame Pt denies having loss body weight [employer]. Weight Status Appropriate Subjective/Other Information RD consult for nutrition education assessment. No reports available on Pt's PO intake of meals at the time , will assess at F/U. Pt is on Room Air, O2 saturation @ 95%, according to Physical Assessment History notes. Pt shows sacral decubitus ulcer stage III, and Skin breakdown on heels, as signs of concern for skin risk at the time, according to Admission Documents. Pt is a SNF resident, Pt needs total assistance with ADL activities, not a candidate for Nutrition Education. Percent of energy/protein needs met: Prescribed Cardiac/Consistent Carbohydrates Diet provides for energy/protein needs (1, 977 Kcal/86 g) during LOS. Nutrition Intervention Follow-Up By: 03/21/22 Additional Comments Continue monitoring food tolerance, %PO intake of meals , and BM. <ABELARDO VALVERDE - Last Filed: 03/17/22 07:11> Assessment and Plan Assessment and plan: I saw and evaluated the patient. I agree with the findings and the plan of care as documented in the Nurse Practitioner's~note, with the following corrections and additions. Hospitalist Physical - Constitutional Vitals: Temp Pulse Resp BP Pulse Ox 97.8 F 67 14 125/40 100 03/17/22 04:00 03/17/22 06:00 03/17/22 06:00 03/17/22 06:00 03/17/22 06:00 Results - Labs CBC & Chem 7: 03/17/22 04:33 03/17/22 04:33 Labs: Laboratory Last Values WBC 4.2 K/mm3 (4.5-11.0) L 03/17/22 04:33 RBC 2.59 M/mm3 (3.65-5.03) L 03/17/22 04:33 Hgb 7.8 gm/dl (11.8-15.2) L 03/17/22 04:33 Hct 23.2 % (35.5-45.6) L 03/17/22 04:33 MCV 90 fl (84-94) 03/17/22 04:33 MCH 30 pg (28-32) 03/17/22 04:33 MCHC 33 % (32-34) 03/17/22 04:33 RDW 17.9 % (13.2-15.2) H 03/17/22 04:33 Plt Count 196 K/mm3 (140-440) 03/17/22 04:33 Lymph % (Auto) 22.7 % (13.4-35.0) 03/14/22 06:09 Knott % (Auto) 9.7 % (0.0-7.3) H 03/14/22 06:09 Eos % (Auto) 0.1 % (0.0-4.3) 03/14/22 06:09 Baso % (Auto) 0.2 % (0.0-1.8) 03/14/22 06:09 Lymph # (Auto) 0.8 K/mm3 (1.2-5.4) L 03/14/22 06:09 Knott # (Auto) 0.3 K/mm3 (0.0-0.8) 03/14/22 06:09 Eos # (Auto) 0.0 K/mm3 (0.0-0.4) 03/14/22 06:09 Baso # (Auto) 0.0 K/mm3 (0.0-0.1) 03/14/22 06:09 Add Manual Diff Complete 03/15/22 21:31 Total Counted 100 03/15/22 21:31 Seg Neutrophils % Drill Bit Sharpener 03/15/22 21:31 Seg Neuts % (Manual) 98.0 % (40.0-70.0) H 03/15/22 21:31 Band Neutrophils % 0 % 03/15/22 21:31 Lymphocytes % (Manual) 2.0 % (13.4-35.0) L 03/15/22 21:31 Reactive Lymphs % (Man) 0 % 03/15/22 21:31 Monocytes % (Manual) 0 % (0.0-7.3) 03/15/22 21:31 Eosinophils % (Manual) 0 % (0.0-4.3) 03/15/22 21:31 Basophils % (Manual) 0 % (0.0-1.8) 03/15/22 21:31 Metamyelocytes % 0 % 03/15/22 21:31 Myelocytes % 0 % 03/15/22 21: Promyelocytes % 0 % 03/15/22 21:31 Blast Cells % 0 % 03/15/22 21:31 Nucleated RBC % Not Reportable 03/15/22 21:31 Seg Neutrophils # 2.3 K/mm3 (1.8-7.7) 03/14/22 06:09 Seg Neutrophils # Man 4.5 K/mm3 (1.8-7.7) 03/15/22 21:31 Band Neutrophils # 0.0 K/mm3 03/15/22 21:31 Lymphocytes # (Manual) 0.1 K/mm3 (1.2-5.4) L 03/15/22 21:31 Abs React Lymphs (Man) 0.0 K/mm3 03/15/22 21:31 Monocytes # (Manual) 0.0 K/mm3 (0.0-0.8) 03/15/22 21:31 Eosinophils # (Manual) 0.0 K/mm3 (0.0-0.4) 03/15/22 21:31 Basophils # (Manual) 0.0 K/mm3 (0.0-0.1) 03/15/22 21:31 Metamyelocytes # 0.0 K/mm3 03/15/22 21:31 Myelocytes # 0.0 K/mm3 03/15/22 21:31 Promyelocytes # 0.0 K/mm3 03/15/22 21:31 Blast Cells # 0.0 K/mm3 03/15/22 21:31 WBC Morphology Not Reportable 03/15/22 21:31 Hypersegmented Neuts Not Reportable 03/15/22 21:31 Hyposegmented Neuts Not Reportable 03/15/22 21:31 Hypogranular Neuts Not Reportable 03/15/22 21:31 Smudge Cells Not Reportable 03/15/22 21:31 Toxic Granulation Not Reportable 03/15/22 21:31 Toxic Vacuolation Not Reportable 03/15/22 21:31 Dohle Bodies Not Reportable 03/15/22 21:31 Pelger-Huet Anomaly Not Reportable 03/15/22 21:31 Charissa Rods Not Reportable 03/15/22 21:31 Platelet Estimate Consistent w auto 03/15/22 21:31 Clumped Platelets Not Reportable 03/15/22 21:31 Plt Clumps, EDTA Not Reportable 03/15/22 21:31 Large Platelets Not Reportable 03/15/22 21:31 Giant Platelets Not Reportable 03/15/22 21:31 Platelet Satelliting Not Reportable 03/15/22 21:31 Plt Morphology Comment Not Reportable 03/15/22 21:31 RBC Morphology Not Reportable 03/15/22 21:31 Dimorphic RBCs Not Reportable 03/15/22 21:31 Polychromasia Not Reportable 03/15/22 21:31 Hypochromasia Not Reportable 03/15/22 21:31 Poikilocytosis Not Reportable 03/15/22 21:31 Anisocytosis Not Reportable 03/15/22 21:31 Microcytosis Not Reportable 03/15/22 21:31 Macrocytosis Not Reportable 03/15/22 21:31 Spherocytes Not Reportable 03/15/22 21:31 Pappenheimer Bodies Not Reportable 03/15/22 21:31 Sickle Cells Not Reportable 03/15/22 21:31 Target Cells Not Reportable 03/15/22 21:31 Tear Drop Cells Not Reportable 03/15/22 21:31 Ovalocytes Not Reportable 03/15/22 21:31 Helmet Cells Not Reportable 03/15/22 21:31 [place] Bodies Not Reportable 03/15/22 21:31 Fedora Rings Not Reportable 03/15/22 21:31 Zaira Cells Not Reportable 03/15/22 21:31 Bite Cells Not Reportable 03/15/22 21:31 Crenated Cell Not Reportable 03/15/22 21:31 Elliptocytes Not Reportable 03/15/22 21:31 Acanthocytes (Spur) Not Reportable 03/15/22 21:31 Rouleaux Not Reportable 03/15/22 21:31 Hemoglobin C Crystals Not Reportable 03/15/22 21:31 Schistocytes Not Reportable 03/15/22 21:31 Malaria parasites Not Reportable 03/15/22 21:31 Percent Retic 2.62 % (0.78-2.58) H 03/14/22 13:17 Escobar Bodies Not Reportable 03/15/22 21:31 Hem Pathologist Commnt No 03/15/22 21:31 PT 16.0 Sec. (12.2-14.9) H 03/13/22 18:34 INR 1.15 (0.87-1.13) H 03/13/22 18:34 APTT 39.9 Sec. (24.2-36.6) H 03/13/22 18:34 Sodium 142 mmol/L (137-145) 03/17/22 04:33 Potassium 3.5 mmol/L (3.6-5.0) L 03/17/22 04:33 Chloride 106.4 mmol/L (98-107) 03/17/22 04:33 Carbon Dioxide 26 mmol/L (22-30) 03/17/22 04:33 Anion Gap 13 mmol/L 03/17/22 04:33 BUN 23 mg/dL (9-20) H 03/17/22 04:33 Creatinine 0.6 mg/dL (0.8-1.3) L 03/17/22 04:33 Estimated GFR > 60 ml/min 03/17/22 04:33 BUN/Creatinine Ratio 38 % 03/17/22 04:33 Glucose 116 mg/dL (75-100) H 03/17/22 04:33 POC Glucose 110 mg/dL (70-105) H 03/16/22 22:11 Lactic Acid 1.60 mmol/L (0.7-2.0) 03/16/22 16:20 Calcium 8.2 mg/dL (8.4-10.2) L 03/17/22 04:33 Phosphorus 3.00 mg/dL (2.5-4.5) 03/17/22 04:33 Magnesium 2.00 mg/dL (1.7-2.3) 03/17/22 04:33 Total Bilirubin 0.50 mg/dL (0.1-1.2) 03/16/22 04:56 Direct Bilirubin < 0.2 mg/dL (0-0.2) 03/15/22 21:31 Indirect Bilirubin 0.3 mg/dL 03/15/22 21:31 AST 22 units/L (5-40) 03/16/22 04:56 ALT 25 units/L (7-56) 03/16/22 04:56 Alkaline Phosphatase 66 units/L (35-129) 03/16/22 04:56 Lactate Dehydrogenase 244 units/L (91-180) H 03/14/22 13:17 C-Reactive Protein 8.10 mg/dL (0.00-1.30) H 03/15/22 21:31 NT-Pro-B Natriuret Pep 2345 pg/mL (0-900) H 03/13/22 18:34 Total Protein 5.2 g/dL (6.3-8.2) L 03/16/22 04:56 Albumin 2.4 g/dL (3.9-5) L 03/16/22 04:56 Albumin/Globulin Ratio 0.9 % 03/16/22 04:56 Procalcitonin 0.57 ng/mL (<0.15) 03/15/22 21:31 TSH 1.320 mlU/mL (0.270-4.200) 03/16/22 04:56 Urine Color Yellow (Yellow) 03/13/22 Unknown Urine Turbidity Hazy (Clear) 03/13/22 Unknown Specific [place] (Man) 1.010 (1.003-1.030) 03/13/22 Unknown Ur Protein (Man) 1+ mg/dL (Negative) 03/13/22 Unknown Ur Ketones (Man) Negative (Negative) 03/13/22 Unknown Ur Nitrite (Man) Negative (Negative) 03/13/22 Unknown Ur Reducing Substances Not Reportable 03/13/22 Unknown Urine Bilirubin (Man) Negative (Negative) 03/13/22 Unknown Urine Ictotest Not Reportable 03/13/22 Unknown Leukocyte Esterase (Man) Small (Negative) 03/13/22 Unknown Urine WBC (Auto) 183.0 /HPF (0.0-6.0) H 03/13/22 Unknown Urine RBC (Auto) 17.0 /HPF (0.0-6.0) 03/13/22 Unknown U Epithel Cells (Auto) 1.0 /HPF (0-13.0) 03/13/22 Unknown Urine Bacteria (Auto) 3+ /HPF (Negative) 03/13/22 Unknown Urine RBC (Manual) 5+ (Negative) 03/13/22 Unknown Urine WBC Clumps 2+ /HPF 03/13/22 Unknown Urine Mucus Few /HPF 03/13/22 Unknown Urine Yeast (Budding) 3+ /HPF 03/13/22 Unknown SARS-CoV-2 (PCR) Positive (Negative) A 03/14/22 15:10 Blood Type O POSITIVE 03/13/22 18:34 Antibody Screen Negative 03/13/22 18:34 Direct Antiglob Test Negative 03/15/22 05:11 CLEMENT, Poly Interpret Negative 03/15/22 05:11 Crossmatch See Detail 03/13/22 18:34 Microbiology: Microbiology 03/15/22 21:53 Peripheral/Venous Blood Culture - Preliminary NO GROWTH AFTER 24 HOURS 03/15/22 21:31 Peripheral/Venous Blood Culture - Preliminary NO GROWTH AFTER 24 HOURS 03/16/22 Unknown Stool Stool Occult Blood (SABAS) - Final 03/15/22 Unknown Urine,Clean Catch Urine Culture - Preliminary Bour[place]/IV: Voiding Method Condom Catheter Active Medications - Current Medications Current Medications: Generic Name Dose Route Start Last Admin Trade Name Freq PRN Reason Stop Dose Admin Acetaminophen 650 mg 03/13/22 22:40 Acetaminophen 325 Mg Tab PO Q4H PRN Pain MILD(1-3)/Fever >100.5/DIAZ Atorvastatin Calcium 40 mg 03/15/22 22:00 03/16/22 23:04 Atorvastatin 40 Mg Tab PO 40 mg QHS IBRAHIMA Administration Dextrose 0 ml 03/13/22 22:40 03/16/22 16:43 Dextrose 50% In Water (25gm) 50 Ml Syringe IV 10 ml Q30MIN PRN Administration Hypoglycemia Protocol Ceftriaxone Sodium 1 gm in 50 mls @ 100 mls/hr 03/14/22 22:00 03/16/22 23:05 Rocephin/Ns 1 Gm/50 Ml IV 100 mls/hr Q24H IBRAHIMA Administration Protocol AMIODARONE HCL 450 mg/ 250 mls @ 33.333 mls/hr 03/15/22 01:08 03/16/22 17:42 Dextrose IV 0 mg/min DIRECT IBRAHIMA 0 mls/hr Infusion Protocol 1 MG/MIN Sodium Chloride 1,000 mls @ 100 mls/hr 03/15/22 23:30 03/16/22 01:06 Nacl 0.9% 1000 Ml IV 03/17/22 09:29 100 mls/hr DIRECT IBRAHIMA Administration Insulin Human Lispro 0 unit 03/14/22 07:30 03/17/22 04:52 Insulin Lispro 100 Unit/Ml SUB-Q Not Given ACHS IBRAHIMA Protocol Magnesium Hydroxide 30 ml 03/13/22 22:40 Magnesium Hydroxide (Mom) Oral Liqd Udc PO Q4H PRN Constipation Metoprolol Tartrate 12.5 mg 03/16/22 18:00 03/16/22 23:04 Metoprolol Tartrate 25 Mg Tab PO Not Given BID IBRAHIMA Ondansetron HCl 4 mg 03/13/22 22:40 Ondansetron 4 Mg/2 Ml Inj IV Q8H PRN Nausea And Vomiting Pantoprazole Sodium 40 mg 03/16/22 22:00 03/16/22 23:06 Pantoprazole 40 Mg Inj IV 40 mg BID IBRAHIMA Administration Potassium Chloride 40 meq 03/16/22 10:00 03/16/22 23:04 Potassium Chloride Er 20 Meq Tab PO 40 meq BID IBRAHIMA Administration Sodium Chloride 10 ml 03/14/22 10:00 03/16/22 23:06 Sodium Chloride 0.9% 10 Ml Flush Syringe IV 10 ml BID IBRAHIMA Administration Sodium Chloride 10 ml 03/13/22 22:40 Sodium Chloride 0.9% 10 Ml Flush Syringe IV PRN PRN LINE FLUSH Nutrition/Malnutrition Assess - Dietary Evaluation Nutrition/Malnutrition Findings: Nutrition Notes Start: 03/14/22 13:14 Freq: Status: Active Protocol: Document 03/14/22 13:14 ADDY (Rec: 03/14/22 13:30 ADDY [id number]) Nutrition Notes Need for Assessment generated from: MD Order,Education Initial or Follow up Brief Note Current Diagnosis Decubitus(Pressure Ulcer), Diabetes,Hypertension,Stroke Other Pertinent Diagnosis AMS, Anemia, Hypokalemia, UTI, Prostate Cancer. Current Diet Cardiac/Consistent Carbohydrates Diet (since B ). Labs/Tests 03/14: K 3.0, CO2 33, BUN 18, Glu 166. Pertinent Medications 03/14: Nutritionally unremarkable. Height 6 ft 2 in Weight 85.3 kg [place] Body Weight (kg) 86.36 BMI 24.1 Intake Prior to Admission Good Weight change and time frame Pt denies having loss body weight [employer]. Weight Status Appropriate Subjective/Other Information RD consult for nutrition education assessment. No reports available on Pt's PO intake of meals at the time , will assess at F/U. Pt is on Room Air, O2 saturation @ 95%, according to Physical Assessment History notes. Pt shows sacral decubitus ulcer stage III, and Skin breakdown on heels, as signs of concern for skin risk at the time, according to Admission Documents. Pt is a SNF resident, Pt needs total assistance with ADL activities, not a candidate for Nutrition Education. Percent of energy/protein needs met: Prescribed Cardiac/Consistent Carbohydrates Diet provides for energy/protein needs (1, 977 Kcal/86 g) during LOS. Nutrition Intervention Follow-Up By: 03/21/22 Additional Comments Continue monitoring food tolerance, %PO intake of meals , and BM.
--- NOTE | 2022-03-16 12:13 | Progress Note ---
Assessment and Plan Assessment: Altered Mental Status COVID-19 Infection Moderate-Large Bilateral Pleural Effusions Severe Anemia New Onset AF with RVR Hypokalemia Hypotension H/o HTN DM2 H/o CVA w/Residual L-Sided Hemiparesis Prostate CA (on Lupron per outpatient records) Plan: Continue IV Amiodarone gtt for now. Add Lopressor 25mg BID as BP is improving. PRN repletion of electrolytes. Anticoagulation deferred in light of severe anemia. Echo pending. Pt seen in conjunction with Dr. Brooks, who agrees with the assessment and plan of care. - Patient Problems (1) Atrial fibrillation with RVR Current Visit: Yes Status: Acute (2) Severe anemia Current Visit: Yes Status: Acute (3) Hypotension Current Visit: Yes Status: Acute (4) COVID-19 Current Visit: Yes Status: Acute (5) Bilateral pleural effusion Current Visit: Yes Status: Acute Subjective Date of service: 03/16/22 Principal diagnosis: AF with RVR Interval history: In SR 70-80s with frequent PACs & PVCs on tele this AM but notably going in & out of AF. Tachycardic in the 130s presently per chart review. Objective Vital Signs Temp Pulse Pulse Resp BP Pulse Ox 03/16/22 11:36 97.1 F L 03/16/22 11:00 130 H 11 L 131/63 03/16/22 10:50 140 H 12 121/65 03/16/22 10:40 84 15 111/72 03/16/22 10:30 85 13 168/102 03/16/22 10:20 69 13 168/102 03/16/22 10:10 79 14 137/68 03/16/22 10:00 73 11 L 140/72 03/16/22 09:50 92 H 11 L 140/72 03/16/22 09:40 66 11 L 127/34 03/16/22 09:30 78 12 108/49 03/16/22 09:20 80 12 108/49 03/16/22 09:10 74 12 135/110 03/16/22 09:00 85 16 135/110 03/16/22 08:50 81 12 139/116 03/16/22 08:40 79 13 121/74 03/16/22 08:30 72 11 L 95/62 03/16/22 08:20 78 12 95/62 03/16/22 08:10 76 12 100/64 03/16/22 08:00 98.9 F 85 85 14 94/34 95 03/16/22 07:50 84 12 94/34 03/16/22 07:40 89 12 100/26 03/16/22 07:30 77 13 111/25 03/16/22 07:20 72 12 111/25 03/16/22 07:12 98.9 F 03/16/22 07:10 79 11 L 137/92 03/16/22 07:00 85 11 L 122/44 03/16/22 06:50 100 H 14 122/44 03/16/22 06:40 83 12 134/46 03/16/22 06:30 93 H 14 126/76 03/16/22 06:20 82 13 126/76 03/16/22 06:10 78 12 101/62 03/16/22 06:00 95 H 12 140/42 03/16/22 05:50 87 12 140/42 03/16/22 05:40 91 H 13 146/44 03/16/22 05:30 98 H 12 145/79 03/16/22 05:20 105 H 13 145/79 03/16/22 05:10 101 H 18 107/79 03/16/22 05:00 95 H 13 102/63 03/16/22 04:50 82 13 102/63 03/16/22 04:40 81 13 93/67 03/16/22 04:30 86 15 171/125 03/16/22 04:20 68 14 171/125 03/16/22 04:10 90 13 135/71 03/16/22 04:00 99.3 F 80 72 13 147/70 95 03/16/22 03:50 110 H 15 147/70 03/16/22 03:40 91 H 13 132/84 03/16/22 03:30 89 13 113/72 03/16/22 03:20 106 H 12 113/72 03/16/22 03:10 87 12 90/54 03/16/22 03:00 140 H 16 115/51 03/16/22 02:50 74 11 L 115/51 03/16/22 02:40 122 H 14 103/73 03/16/22 02:30 84 13 158/122 03/16/22 02:20 116 H 14 158/122 03/16/22 02:10 83 13 158/122 03/16/22 02:00 108 H 13 158/122 03/16/22 01:50 95 H 14 152/112 03/16/22 01:40 97 H 13 171/90 03/16/22 01:30 111 H 13 171/90 03/16/22 01:20 90 12 152/90 03/16/22 01:10 107 H 14 166/121 03/16/22 01:00 116 H 16 166/121 03/16/22 00:50 121 H 15 159/139 03/16/22 00:40 89 17 91/60 03/16/22 00:30 88 12 03/16/22 00:20 91/60 76 L 03/16/22 00:12 76/52 77 L 03/16/22 00:00 94 H 132 H 12 76/52 100 03/15/22 23:51 61/46 96 03/15/22 23:41 99.0 F 96 H 13 112/47 100 03/15/22 23:31 103 H 13 103/57 03/15/22 23:21 125 H 15 103/57 03/15/22 23:11 103 H 14 94/61 90 03/15/22 23:01 102 H 14 94/61 03/15/22 22:51 108 H 13 137/61 03/15/22 22:41 107 H 13 129/103 03/15/22 22:30 107 H 14 149/89 03/15/22 22:21 115 H 13 139/90 03/15/22 22:11 108 H 19 136/84 97 03/15/22 22:01 103 H 19 129/103 90 03/15/22 21:50 101 H 91/63 03/15/22 21:41 115 H 132/44 98 03/15/22 21:31 104 H 16 132/44 95 03/15/22 21:21 130 H 16 152/121 93 03/15/22 21:11 104 H 20 97/44 98 03/15/22 21:01 91 H 18 155/115 97 03/15/22 20:51 122 H 20 155/115 03/15/22 20:41 149 H 13 91/63 94 03/15/22 20:31 107 H 14 91/63 99 03/15/22 20:21 117 H 15 91/63 03/15/22 20:11 107 H 15 95/68 03/15/22 20:01 133 H 15 95/68 03/15/22 20:00 112 H 112 H 14 91 03/15/22 19:51 121 H 15 95/68 03/15/22 19:41 91 H 14 95/71 03/15/22 19:31 115 H 16 96/63 03/15/22 19:30 99.2 F 03/15/22 19:21 125 H 17 96/63 83 L 03/15/22 19:11 133 H 18 102/71 71 L 03/15/22 19:01 130 H 18 102/71 81 L 03/15/22 18:51 129 H 13 139/115 87 03/15/22 18:41 110 H 12 117/98 03/15/22 18:31 113 H 12 117/98 89 03/15/22 18:29 112 H 14 117/98 85 03/15/22 18:21 133 H 14 117/98 80 L 03/15/22 18:11 149 H 15 117/98 03/15/22 18:01 137 H 12 153/99 03/15/22 17:51 128 H 13 111/83 03/15/22 17:41 127 H 13 117/98 03/15/22 17:35 98.6 F 82 14 117/98 03/15/22 17:31 141 H 12 115/74 03/15/22 17:21 152 H 16 115/74 03/15/22 17:11 159 H 18 103/67 84 03/15/22 17:05 98.8 F 85 19 116/80 03/15/22 17:01 165 H 17 103/67 82 L 03/15/22 16:51 144 H 19 116/80 03/15/22 16:41 119 H 16 103/67 65 L 03/15/22 16:36 98.6 F 105 H 16 103/67 03/15/22 16:35 98.6 F 105 H 16 103/67 03/15/22 16:31 110 H 15 103/67 03/15/22 16:21 89 13 105/65 03/15/22 16:11 101 H 14 122/70 03/15/22 16:06 98.6 F 99 H 17 122/70 03/15/22 16:01 101 H 13 122/70 03/15/22 16:00 98.6 F 122 H 101 H 13 122/70 90 03/15/22 15:51 104 H 13 106/61 03/15/22 15:41 104 H 13 104/72 03/15/22 15:35 98.8 F 109 H 16 104/72 89 03/15/22 15:31 110 H 13 104/72 03/15/22 15:21 86 14 96/63 03/15/22 15:20 98.5 F 94 H 14 96/63 95 03/15/22 15:11 92 H 14 97/40 03/15/22 15:01 100 H 13 97/40 03/15/22 14:51 108 H 14 97/53 03/15/22 14:41 124 H 13 112/73 03/15/22 14:31 113 H 13 112/73 03/15/22 14:30 98.6 F 99 H 17 122/70 03/15/22 14:21 116 H 15 109/67 03/15/22 14:11 136 H 13 112/64 03/15/22 14:01 124 H 14 112/64 03/15/22 14:00 98.5 F 100 H 14 112/64 92 03/15/22 13:51 103 H 14 109/56 03/15/22 13:41 105 H 12 101/50 48 L 03/15/22 13:31 121 H 13 101/50 69 L 03/15/22 13:30 98.5 F 92 H 13 101/50 91 03/15/22 13:21 107 H 11 L 92/48 82 L 03/15/22 13:11 110 H 15 84/57 76 L 03/15/22 13:01 111 H 21 84/57 03/15/22 12:59 98.3 F 102 H 16 84/57 96 03/15/22 12:51 93 H 14 91/60 03/15/22 12:44 98.5 F 94 H 14 91/60 95 03/15/22 12:41 114 H 12 88/48 03/15/22 12:30 99 F 110 H 15 88/48 95 03/15/22 12:21 116 H 15 94/54 03/15/22 12:15 99.5 F 111 H 19 94/54 98 03/15/22 12:13 104 H 15 - Labs and Meds Cardiac Enzymes 03/15/22 03/16/22 Range/Units 21:31 04:56 AST 24 22 (5-40) units/L CBC 03/15/22 03/16/22 Range/Units 21:31 04:56 WBC 4.6 4.6 (4.5-11.0) K/mm3 RBC 2.93 L 2.66 L (3.65-5.03) M/mm3 Hgb 8.5 L D 7.8 L (11.8-15.2) gm/dl Hct 26.1 L D 23.9 L (35.5-45.6) % Plt Count 211 223 (140-440) K/mm3 Comprehensive Metabolic Panel 03/15/22 03/15/22 03/16/22 Range/Units 21:31 21:31 04:56 Sodium 141 141 (137-145) mmol/L Potassium 2.9 L* 3.3 L (3.6-5.0) mmol/L Chloride 101.6 104.5 (98-107) mmol/L Carbon Dioxide 29 27 (22-30) mmol/L BUN 32 H 28 H (9-20) mg/dL Creatinine 0.7 L 0.6 L (0.8-1.3) mg/dL Glucose 123 H 68 L (75-100) mg/dL Calcium 8.1 L 8.1 L (8.4-10.2) mg/dL Direct Bilirubin < 0.2 (0-0.2) mg/dL Indirect Bilirubin 0.3 mg/dL AST 24 22 (5-40) units/L ALT 27 25 (7-56) units/L Alkaline Phosphatase 68 66 (35-129) units/L Total Protein 5.6 L 5.2 L (6.3-8.2) g/dL Albumin 2.5 L 2.4 L (3.9-5) g/dL - Imaging and Cardiology EKG: report reviewed, image reviewed Echo: pending - Telemetry EKG Rhythm: Sinus Rhythm - EKG Supraventricular dysrhythmia: atrial fibrillation Repolarization changes or abnormalities: nonspecific abnormality, ST segment, and/or T wave - Allied health notes Allied health notes reviewed: nursing
--- NOTE | 2022-03-16 12:20 | Electrocardiograph Report ---
[facility] Test Date: 2022-03-15 Test Time: 09:53:10 Pat Name: ROBERTH THOMPSON Department: Room: A251 1 Gender: M [employer] Supervisor: SEVERO : 1940 Requested By: FAHAD CRONIN Order Number: [id number] Reading MD: Silver Ackerman Measurements Intervals [place] Rate: 105 P: SD: QRS: 1 QRSD: 102 T: QT: 380 QTc: 504 Interpretive Statements Atrial fibrillation Paired ventricular premature complexes Low voltage, extremity leads Consider anterior infarct Nonspecific T abnormalities, lateral leads Prolonged QT interval Compared to ECG 03/14/2022 21:23:38 Ventricular premature complex(es) now present Prolonged QT interval still evident Myocardial infarct finding still present T-wave abnormality still present Electronically Signed On 03-16-2022 12:19:53 EDT by Silver Ackerman
[2022-03-16] MEDS ORDERED: METOPROLOL TARTRATE 25 MG TAB PO SCH (13:00)
--- NOTE | 2022-03-16 13:02 | Progress Note ---
Assessment and Plan 81-year-old -[place] male resident of a [facility] with significant past medical history of hypertension, diabetes mellitus, CVA with left hemiparesis sent to the emergency room today for evaluation of changes in mental status and low hemoglobin. Routine labs were said to have been drawn at the [facility] patient was found to be anemic. There has been no history of GI bleed. It is not clear whether patient is on any nonsteroidal anti-inflammatory or any blood thinner as medication list is unavailable. Patient has historyof prostate CA There has no history of fever or chills, no chest pain or shortness of breath, no headache or dizziness and no diaphoresis. Patient denies any history of smoking, alcohol or drug abuse. 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 No known drug allergies. Work-up in the emergency room reveals hemoglobin of 6.4 and a potassium of 2.3 Patient received transfusion and Potassium supplemented. Patient sleeping . Not responding to verbal stimuli. Patient weak, Patient is on 2 litres O2. O2 saturation 100%. No acute respiratory distress at rest. Patient afebrile. No leukocytosis. Blood pressure 128/105. Pulse 95, Respirations 15. Recommend to recheck blood pressure. Patients SARS- COV -2 (PCR) positive. Chest xray 03/13/22 reported Prominent consolidation involving both lower lungs, right worse than left. CT of chest done 03/13/22 reported Moderate to large bilateral pleural effusions, right greater than left. Prominent hiatal hernia with evidence of mild gastroesophageal reflux. Bilateral areas of consolidation within both lower lungs could be related to atelectasis however aspiration is difficult to completely exclude especially within the left lower lobe. Patient is on ceftriaxone and Protonix. Recommend DVT prophylaxis. SCDs COVID precautions. I spent critical care time of 35 minutes obtaining history, review the chart, examine the patient, review Chest xray, CAT scan of chest, lab results, talking to the nursing staff, respiratory therapy and work up plan of treatment in this critically ill patient. - Patient Problems (1) Normocytic anemia, not due to blood loss Current Visit: Yes Status: Acute Plan to address problem: Patient received blood transfusion. Patients to days HGB 8.1. Recommend to consult gastroenterology and hematology. (2) CHF (congestive heart failure) Current Visit: Yes Status: Acute Plan to address problem: Management as per cardiology. (3) Hypokalemia Current Visit: Yes Status: Acute Plan to address problem: Supplementing K+ Recommend to repeat BMP. (4) Pleural effusion Current Visit: Yes Status: Acute Plan to address problem: Recommend thoracentesis under ultrasound by interventional radiology when patient is more stable. (5) Coronavirus infection Current Visit: Yes Status: Acute Plan to address problem: Management as per infectious disease consultants. Recommend Hare virus precautions. (6) HTN (hypertension) Current Visit: Yes Status: Acute Plan to address problem: Management as per primary care. (7) Diabetes Current Visit: Yes Status: Acute Plan to address problem: Management as per primary care. (8) CVA (cerebral vascular accident) Current Visit: Yes Status: Acute Plan to address problem: History of CVA and left hemiplegia. Management as per primary care. Subjective Date of service: 03/16/22 Principal diagnosis: AF with RVR Interval history: 81-year-old -[place] male resident of a [facility] with significant past medical history of hypertension, diabetes mellitus, CVA with left hemipar esis sent to the emergency room today for evaluation of changes in mental status and low hemoglobin. Routine labs were said to have been drawn at the [facility] patient was found to be anemic. There has been no history of GI bleed. It is not clear whether patient is on any nonsteroidal anti-inflammatory or any blood thinner as medication list is unavailable. Patient has historyof prostate CA There has no history of fever or chills, no chest pain or shortness of breath, no headache or dizziness and no diaphoresis. Patient denies any history of smoking, alcohol or drug abuse. 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 No known drug allergies. Work-up in the emergency room reveals hemoglobin of 6.4 and a potassium of 2.3 Patient received transfusion and Potassium supplemented. Patient sleeping . Not responding to verbal stimuli. Patient weak, Patient is on 2 litres O2. O2 saturation 100%. No acute respiratory distress at rest. Patient afebrile. No leukocytosis. Blood pressure 128/105. Pulse 95, Respirations 15. Recommend to recheck blood pressure. Patients SARS- COV -2 (PCR) positive. Chest xray 03/13/22 reported Prominent consolidation involving both lower lungs, right worse than left. CT of chest done 03/13/22 reported Moderate to large bilateral pleural effusions, right greater than left. Prominent hiatal hernia with evidence of mild gastroesophageal reflux. Bilateral areas of consolidation within both lower lungs could be related to atelectasis however aspiration is difficult to completely exclude especially within the left lower lobe. Patient is on ceftriaxone and Protonix. Recommend DVT prophylaxis. SCDs COVID precautions. Objective Vital Signs - 12hr 03/16/22 03/16/22 03/16/22 01:10 01:20 01:30 Temperature Pulse Rate 107 H 90 111 H Pulse Rate [ From Monitor] Respiratory 14 12 13 Rate Blood Pressure 166/121 152/90 171/90 O2 Sat by Pulse Oximetry 03/16/22 03/16/22 03/16/22 01:40 01:50 02:00 Temperature Pulse Rate 97 H 95 H 108 H Pulse Rate [ From Monitor] Respiratory 13 14 13 Rate Blood Pressure 171/90 152/112 158/122 O2 Sat by Pulse Oximetry 03/16/22 03/16/22 03/16/22 02:10 02:20 02:30 Temperature Pulse Rate 83 116 H 84 Pulse Rate [ From Monitor] Respiratory 13 14 13 Rate Blood Pressure 158/122 158/122 158/122 O2 Sat by Pulse Oximetry 03/16/22 03/16/22 03/16/22 02:40 02:50 03:00 Temperature Pulse Rate 122 H 74 140 H Pulse Rate [ From Monitor] Respiratory 14 11 L 16 Rate Blood Pressure 103/73 115/51 115/51 O2 Sat by Pulse Oximetry 03/16/22 03/16/22 03/16/22 03:10 03:20 03:30 Temperature Pulse Rate 87 106 H 89 Pulse Rate [ From Monitor] Respiratory 12 12 13 Rate Blood Pressure 90/54 113/72 113/72 O2 Sat by Pulse Oximetry 03/16/22 03/16/22 03/16/22 03:40 03:50 04:00 Temperature 99.3 F Pulse Rate 91 H 110 H 80 Pulse Rate [ 72 From Monitor] Respiratory 13 15 13 Rate Blood Pressure 132/84 147/70 147/70 O2 Sat by Pulse 95 Oximetry 03/16/22 03/16/22 03/16/22 04:10 04:20 04:30 Temperature Pulse Rate 90 68 86 Pulse Rate [ From Monitor] Respiratory 13 14 15 Rate Blood Pressure 135/71 171/125 171/125 O2 Sat by Pulse Oximetry 03/16/22 03/16/22 03/16/22 04:40 04:50 05:00 Temperature Pulse Rate 81 82 95 H Pulse Rate [ From Monitor] Respiratory 13 13 13 Rate Blood Pressure 93/67 102/63 102/63 O2 Sat by Pulse Oximetry 03/16/22 03/16/22 03/16/22 05:10 05:20 05:30 Temperature Pulse Rate 101 H 105 H 98 H Pulse Rate [ From Monitor] Respiratory 18 13 12 Rate Blood Pressure 107/79 145/79 145/79 O2 Sat by Pulse Oximetry 03/16/22 03/16/22 03/16/22 05:40 05:50 06:00 Temperature Pulse Rate 91 H 87 95 H Pulse Rate [ From Monitor] Respiratory 13 12 12 Rate Blood Pressure 146/44 140/42 140/42 O2 Sat by Pulse Oximetry 03/16/22 03/16/22 03/16/22 06:10 06:20 06:30 Temperature Pulse Rate 78 82 93 H Pulse Rate [ From Monitor] Respiratory 12 13 14 Rate Blood Pressure 101/62 126/76 126/76 O2 Sat by Pulse Oximetry 03/16/22 03/16/22 03/16/22 06:40 06:50 07:00 Temperature Pulse Rate 83 100 H 85 Pulse Rate [ From Monitor] Respiratory 12 14 11 L Rate Blood Pressure 134/46 122/44 122/44 O2 Sat by Pulse Oximetry 03/16/22 03/16/22 03/16/22 07:10 07:12 07:20 Temperature 98.9 F Pulse Rate 79 72 Pulse Rate [ From Monitor] Respiratory 11 L 12 Rate Blood Pressure 137/92 111/25 O2 Sat by Pulse Oximetry 03/16/22 03/16/22 03/16/22 07:30 07:40 07:50 Temperature Pulse Rate 77 89 84 Pulse Rate [ From Monitor] Respiratory 13 12 12 Rate Blood Pressure 111/25 100/26 94/34 O2 Sat by Pulse Oximetry 03/16/22 03/16/22 03/16/22 08:00 08:10 08:20 Temperature 98.9 F Pulse Rate 79 76 78 Pulse Rate [ 85 From Monitor] Respiratory 14 12 12 Rate Blood Pressure 94/34 100/64 95/62 O2 Sat by Pulse 95 Oximetry 03/16/22 03/16/22 03/16/22 08:30 08:40 08:50 Temperature Pulse Rate 72 79 81 Pulse Rate [ From Monitor] Respiratory 11 L 13 12 Rate Blood Pressure 95/62 121/74 139/116 O2 Sat by Pulse Oximetry 03/16/22 03/16/22 03/16/22 09:00 09:10 09:20 Temperature Pulse Rate 85 74 80 Pulse Rate [ From Monitor] Respiratory 16 12 12 Rate Blood Pressure 135/110 135/110 108/49 O2 Sat by Pulse Oximetry 03/16/22 03/16/22 03/16/22 09:30 09:40 09:50 Temperature Pulse Rate 78 66 92 H Pulse Rate [ From Monitor] Respiratory 12 11 L 11 L Rate Blood Pressure 108/49 127/34 140/72 O2 Sat by Pulse Oximetry 03/16/22 03/16/22 03/16/22 10:00 10:10 10:20 Temperature Pulse Rate 73 79 69 Pulse Rate [ From Monitor] Respiratory 11 L 14 13 Rate Blood Pressure 140/72 137/68 168/102 O2 Sat by Pulse Oximetry 03/16/22 03/16/22 03/16/22 10:30 10:40 10:50 Temperature Pulse Rate 85 84 140 H Pulse Rate [ From Monitor] Respiratory 13 15 12 Rate Blood Pressure 168/102 111/72 121/65 O2 Sat by Pulse Oximetry 03/16/22 03/16/22 03/16/22 11:00 11:10 11:20 Temperature Pulse Rate 130 H 79 63 Pulse Rate [ From Monitor] Respiratory 11 L 12 12 Rate Blood Pressure 131/63 131/63 127/59 O2 Sat by Pulse Oximetry 03/16/22 03/16/22 03/16/22 11:30 11:36 11:40 Temperature 97.1 F L Pulse Rate 70 86 Pulse Rate [ From Monitor] Respiratory 14 10 L Rate Blood Pressure 131/63 113/56 O2 Sat by Pulse Oximetry 03/16/22 03/16/22 03/16/22 11:50 12:00 12:10 Temperature 97.1 F L Pulse Rate 74 90 94 H Pulse Rate [ 90 From Monitor] Respiratory 9 L 11 L 10 L Rate Blood Pressure 124/72 124/72 125/100 O2 Sat by Pulse 91 55 L Oximetry 03/16/22 12:30 Temperature Pulse Rate 58 L Pulse Rate [ From Monitor] Respiratory 12 Rate Blood Pressure O2 Sat by Pulse Oximetry Constitutional: no acute distress, other (Weak, sleeping but arousable.) Eyes: non-icteric ENT: oropharynx dry Neck: supple, no JVD Ascultation: Bilateral: diminished breath sounds Cardiovascular: other (Tachycardia) Gastrointestinal: hypoactive bowel sounds, soft, non-tender Integumentary: normal Extremities: no cyanosis, no edema Neurologic: pupils equal and round, other (left hemipresis.) Psychiatric: depressed CBC and BMP: 03/17/22 04:33 03/17/22 04:33 ABG, PT/INR, D-dimer: PT/INR, D-dimer PT 16.0 Sec. (12.2-14.9) H 03/13/22 18:34 INR 1.15 (0.87-1.13) H 03/13/22 18:34 Abnormal lab findings: Abnormal Labs 03/13/22 03/13/22 03/13/22 18:34 18:34 18:34 WBC 4.2 L RBC 2.23 L Hgb 6.4 L Hct 20.1 L RDW 20.1 H [place] % (Auto) Lymph # (Auto) Seg Neuts % (Manual) Lymphocytes % (Manual) Lymphocytes # (Manual) Percent Retic PT 16.0 H INR 1.15 H APTT 39.9 H Potassium 2.3 L* Carbon Dioxide 33 H BUN 18 H Creatinine Glucose POC Glucose Lactic Acid Calcium Magnesium Lactate Dehydrogenase C-Reactive Protein NT-Pro-B Natriuret Pep Total Protein Albumin Urine WBC (Auto) SARS-CoV-2 (PCR) Crossmatch 03/13/22 03/13/22 03/13/22 18:34 18:34 Unknown WBC RBC Hgb Hct RDW [place] % (Auto) Lymph # (Auto) Seg Neuts % (Manual) Lymphocytes % (Manual) Lymphocytes # (Manual) Percent Retic PT INR APTT Potassium Carbon Dioxide BUN Creatinine Glucose POC Glucose Lactic Acid Calcium Magnesium Lactate Dehydrogenase C-Reactive Protein NT-Pro-B Natriuret Pep 2345 H Total Protein Albumin Urine WBC (Auto) 183.0 H SARS-CoV-2 (PCR) Crossmatch See Detail 03/14/22 03/14/22 03/14/22 06:09 06:09 07:09 WBC 3.4 L RBC 2.83 L Hgb 8.1 L Hct 25.6 L RDW 19.5 H [place] % (Auto) 9.7 H Lymph # (Auto) 0.8 L Seg Neuts % (Manual) Lymphocytes % (Manual) Lymphocytes # (Manual) Percent Retic PT INR APTT Potassium 3.0 L D Carbon Dioxide 33 H BUN 18 H Creatinine Glucose 166 H POC Glucose 151 H Lactic Acid Calcium 8.1 L Magnesium Lactate Dehydrogenase C-Reactive Protein NT-Pro-B Natriuret Pep Total Protein Albumin Urine WBC (Auto) SARS-CoV-2 (PCR) Crossmatch 03/14/22 03/14/22 03/14/22 11:09 13:17 13:17 WBC RBC Hgb Hct RDW [place] % (Auto) Lymph # (Auto) Seg Neuts % (Manual) Lymphocytes % (Manual) Lymphocytes # (Manual) Percent Retic 2.62 H PT INR APTT Potassium 3.2 L Carbon Dioxide BUN Creatinine Glucose POC Glucose 152 H Lactic Acid Calcium Magnesium Lactate Dehydrogenase 244 H C-Reactive Protein NT-Pro-B Natriuret Pep Total Protein Albumin Urine WBC (Auto) SARS-CoV-2 (PCR) Crossmatch 03/14/22 03/14/22 03/14/22 15:10 16:43 22:16 WBC RBC Hgb Hct RDW [place] % (Auto) Lymph # (Auto) Seg Neuts % (Manual) Lymphocytes % (Manual) Lymphocytes # (Manual) Percent Retic PT INR APTT Potassium Carbon Dioxide BUN Creatinine Glucose POC Glucose 131 H 199 H Lactic Acid Calcium Magnesium Lactate Dehydrogenase C-Reactive Protein NT-Pro-B Natriuret Pep Total Protein Albumin Urine WBC (Auto) SARS-CoV-2 (PCR) Positive A Crossmatch 03/14/22 03/15/22 03/15/22 23:26 05:11 11:35 WBC RBC Hgb 5.5 L* Hct 17.2 L* D RDW [place] % (Auto) Lymph # (Auto) Seg Neuts % (Manual) Lymphocytes % (Manual) Lymphocytes # (Manual) Percent Retic PT INR APTT Potassium Carbon Dioxide BUN Creatinine Glucose POC Glucose 158 H 111 H Lactic Acid Calcium Magnesium Lactate Dehydrogenase C-Reactive Protein NT-Pro-B Natriuret Pep Total Protein Albumin Urine WBC (Auto) SARS-CoV-2 (PCR) Crossmatch 03/15/22 03/15/22 03/15/22 21:31 21:31 21:31 WBC RBC 2.93 L Hgb 8.5 L D Hct 26.1 L D RDW 17.6 H [place] % (Auto) Lymph # (Auto) Seg Neuts % (Manual) 98.0 H Lymphocytes % (Manual) 2.0 L Lymphocytes # (Manual) 0.1 L Percent Retic PT INR APTT Potassium 2.9 L* Carbon Dioxide BUN 32 H Creatinine 0.7 L Glucose 123 H POC Glucose Lactic Acid Calcium 8.1 L Magnesium 1.60 L Lactate Dehydrogenase C-Reactive Protein NT-Pro-B Natriuret Pep Total Protein Albumin Urine WBC (Auto) SARS-CoV-2 (PCR) Crossmatch 03/15/22 03/15/22 03/16/22 21:31 21:31 04:56 WBC RBC 2.66 L Hgb 7.8 L Hct 23.9 L RDW 17.6 H [place] % (Auto) Lymph # (Auto) Seg Neuts % (Manual) Lymphocytes % (Manual) Lymphocytes # (Manual) Percent Retic PT INR APTT Potassium Carbon Dioxide BUN Creatinine Glucose POC Glucose Lactic Acid 2.60 H* Calcium Magnesium Lactate Dehydrogenase C-Reactive Protein 8.10 H NT-Pro-B Natriuret Pep Total Protein 5.6 L Albumin 2.5 L Urine WBC (Auto) SARS-CoV-2 (PCR) Crossmatch 03/16/22 03/16/22 04:56 07:31 WBC RBC Hgb Hct RDW [place] % (Auto) Lymph # (Auto) Seg Neuts % (Manual) Lymphocytes % (Manual) Lymphocytes # (Manual) Percent Retic PT INR APTT Potassium 3.3 L Carbon Dioxide BUN 28 H Creatinine 0.6 L Glucose 68 L POC Glucose 63 L Lactic Acid Calcium 8.1 L Magnesium Lactate Dehydrogenase C-Reactive Protein NT-Pro-B Natriuret Pep Total Protein 5.2 L Albumin 2.4 L Urine WBC (Auto) SARS-CoV-2 (PCR) Crossmatch Allied health notes reviewed: nursing
--- NOTE | 2022-03-16 13:07 | Hem/Onc Progress Note ---
Subjective Interval history: heme data review 81yo AA man with recent confusion, severe anemia h/o stroke has been receiving RBC transfusions tested positive for Covid Ag DATA REVIEWED BELOW Abd/pelvis CT neg for nalignancy or hematoma IMP: recent severe anemia could be due to heme malignancy (not identified so far) r/o myeloma; MDS is possible not a candidate for anti-tumor therappy even if heme malignnancy were found REC: awaiting SPEP/DAR RBC transfusions for severe anemia Laboratory Last Values WBC 4.6 K/mm3 (4.5-11.0) 03/16/22 04:56 Hgb 7.8 gm/dl (11.8-15.2) L 03/16/22 04:56 Hct 23.9 % (35.5-45.6) L 03/16/22 04:56 Plt Count 223 K/mm3 (140-440) 03/16/22 04:56 Seg Neuts % (Manual) 98.0 % (40.0-70.0) H 03/15/22 21:31 Percent Retic 2.62 % (0.78-2.58) H 03/14/22 13:17 Creatinine 0.6 mg/dL (0.8-1.3) L 03/16/22 04:56 Antibody Screen Negative 03/13/22 18:34 Direct Antiglob Test Negative 03/15/22 05:11 CLEMENT, Poly Interpret Negative 03/15/22 05:11 Crossmatch See Detail 03/13/22 18:34 Active Medications Ceftriaxone Sodium (Rocephin/Ns 1 Gm/50 Ml) 1 gm in 50 mls @ 100 mls/hr IV Q24H [facility]; Protocol Last Admin: 03/15/22 22:00 Dose: 100 mls/hr Objective - Constitutional Vitals: Last Vital Signs Temp 97.1 F L 03/16/22 12:00 Pulse 58 L 03/16/22 12:30 Resp 12 03/16/22 12:30 BP 125/100 03/16/22 12:10 Pulse Ox 55 L 03/16/22 12:10 - Labs Lab Results: Laboratory Results - last 24 hr 03/13/22 03/15/22 03/15/22 18:34 08:40 11:35 WBC RBC Hgb Hct MCV MCH MCHC RDW Plt Count Add Manual Diff Total Counted Seg Neutrophils % Seg Neuts % (Manual) Band Neutrophils % Lymphocytes % (Manual) Reactive Lymphs % (Man) Monocytes % (Manual) Eosinophils % (Manual) Basophils % (Manual) Metamyelocytes % Myelocytes % Promyelocytes % Blast Cells % Nucleated RBC % Seg Neutrophils # Man Band Neutrophils # Lymphocytes # (Manual) Abs React Lymphs (Man) Monocytes # (Manual) Eosinophils # (Manual) Basophils # (Manual) Metamyelocytes # Myelocytes # Promyelocytes # Blast Cells # WBC Morphology Hypersegmented Neuts Hyposegmented Neuts Hypogranular Neuts Smudge Cells Toxic Granulation Toxic Vacuolation Dohle Bodies Pelger-Huet Anomaly Charissa Rods Platelet Estimate Clumped Platelets Plt Clumps, EDTA Large Platelets Giant Platelets Platelet Satelliting Plt Morphology Comment RBC Morphology Dimorphic RBCs Polychromasia Hypochromasia Poikilocytosis Anisocytosis Microcytosis Macrocytosis Spherocytes Pappenheimer Bodies Sickle Cells Target Cells Tear Drop Cells Ovalocytes Helmet Cells [place] Bodies Cogswell Rings [place] Cells Bite Cells Crenated Cell Elliptocytes Acanthocytes (Spur) Rouleaux Hemoglobin C Crystals Schistocytes Malaria parasites Escobar Bodies Hem Pathologist Commnt Sodium Potassium Chloride Carbon Dioxide Anion Gap BUN Creatinine Estimated GFR BUN/Creatinine Ratio Glucose POC Glucose 98 111 H Lactic Acid Calcium Phosphorus Magnesium Total Bilirubin Direct Bilirubin Indirect Bilirubin AST ALT Alkaline Phosphatase C-Reactive Protein Total Protein Albumin Albumin/Globulin Ratio TSH Blood Type O POSITIVE Antibody Screen Negative Crossmatch See Detail 03/15/22 03/15/22 03/15/22 16:23 21:23 21:31 WBC 4.6 RBC 2.93 L Hgb 8.5 L D Hct 26.1 L D MCV 89 MCH 29 MCHC 33 RDW 17.6 H Plt Count 211 Add Manual Diff Complete Total Counted 100 Seg Neutrophils % Bicycle Courier Seg Neuts % (Manual) 98.0 H Band Neutrophils % 0 Lymphocytes % (Manual) 2.0 L Reactive Lymphs % (Man) 0 Monocytes % (Manual) 0 Eosinophils % (Manual) 0 Basophils % (Manual) 0 Metamyelocytes % 0 Myelocytes % 0 Promyelocytes % 0 Blast Cells % 0 Nucleated RBC % Not Reportable Seg Neutrophils # Man 4.5 Band Neutrophils # 0.0 Lymphocytes # (Manual) 0.1 L Abs React Lymphs (Man) 0.0 Monocytes # (Manual) 0.0 Eosinophils # (Manual) 0.0 Basophils # (Manual) 0.0 Metamyelocytes # 0.0 Myelocytes # 0.0 Promyelocytes # 0.0 Blast Cells # 0.0 WBC Morphology Not Reportable Hypersegmented Neuts Not Reportable Hyposegmented Neuts Not Reportable Hypogranular Neuts Not Reportable Smudge Cells Not Reportable Toxic Granulation Not Reportable Toxic Vacuolation Not Reportable Dohle Bodies Not Reportable Pelger-Huet Anomaly Not Reportable Charissa Rods Not Reportable Platelet Estimate Consistent w auto Clumped Platelets Not Reportable Plt Clumps, EDTA Not Reportable Large Platelets Not Reportable Giant Platelets Not Reportable Platelet Satelliting Not Reportable Plt Morphology Comment Not Reportable RBC Morphology Not Reportable Dimorphic RBCs Not Reportable Polychromasia Not Reportable Hypochromasia Not Reportable Poikilocytosis Not Reportable Anisocytosis Not Reportable Microcytosis Not Reportable Macrocytosis Not Reportable Spherocytes Not Reportable Pappenheimer Bodies Not Reportable Sickle Cells Not Reportable Target Cells Not Reportable Tear Drop Cells Not Reportable Ovalocytes Not Reportable Helmet Cells Not Reportable Steven-[place] Bodies Not Reportable Cogswell Rings Not Reportable [place]elhard Cells Not Reportable Bite Cells Not Reportable Crenated Cell Not Reportable Elliptocytes Not Reportable Acanthocytes (Spur) Not Reportable Rouleaux Not Reportable Hemoglobin C Crystals Not Reportable Schistocytes Not Reportable Malaria parasites Not Reportable Escobar Bodies Not Reportable Hem Pathologist Commnt No Sodium Potassium Chloride Carbon Dioxide Anion Gap BUN Creatinine Estimated GFR BUN/Creatinine Ratio Glucose POC Glucose 84 94 Lactic Acid Calcium Phosphorus Magnesium Total Bilirubin Direct Bilirubin Indirect Bilirubin AST ALT Alkaline Phosphatase C-Reactive Protein Total Protein Albumin Albumin/Globulin Ratio TSH Blood Type Antibody Screen Crossmatch 03/15/22 03/15/22 03/15/22 21:31 21:31 21:31 WBC RBC Hgb Hct MCV MCH MCHC RDW Plt Count Add Manual Diff Total Counted Seg Neutrophils % Seg Neuts % (Manual) Band Neutrophils % Lymphocytes % (Manual) Reactive Lymphs % (Man) Monocytes % (Manual) Eosinophils % (Manual) Basophils % (Manual) Metamyelocytes % Myelocytes % Promyelocytes % Blast Cells % Nucleated RBC % Seg Neutrophils # Man Band Neutrophils # Lymphocytes # (Manual) Abs React Lymphs (Man) Monocytes # (Manual) Eosinophils # (Manual) Basophils # (Manual) Metamyelocytes # Myelocytes # Promyelocytes # Blast Cells # WBC Morphology Hypersegmented Neuts Hyposegmented Neuts Hypogranular Neuts Smudge Cells Toxic Granulation Toxic Vacuolation Dohle Bodies Pelger-Huet Anomaly Charissa Rods Platelet Estimate Clumped Platelets Plt Clumps, EDTA Large Platelets Giant Platelets Platelet Satelliting Plt Morphology Comment RBC Morphology Dimorphic RBCs Polychromasia Hypochromasia Poikilocytosis Anisocytosis Microcytosis Macrocytosis Spherocytes Pappenheimer Bodies Sickle Cells Target Cells Tear Drop Cells Ovalocytes Helmet Cells [place] Bodies Cogswell Rings Zaira Cells Bite Cells Crenated Cell Elliptocytes Acanthocytes (Spur) Rouleaux Hemoglobin C Crystals Schistocytes Malaria parasites Escobar Bodies Hem Pathologist Commnt Sodium 141 Potassium 2.9 L* Chloride 101.6 Carbon Dioxide 29 Anion Gap 13 BUN 32 H Creatinine 0.7 L Estimated GFR > 60 BUN/Creatinine Ratio 46 Glucose 123 H POC Glucose Lactic Acid 2.60 H* Calcium 8.1 L Phosphorus 2.90 Magnesium 1.60 L Total Bilirubin Direct Bilirubin Indirect Bilirubin AST ALT Alkaline Phosphatase C-Reactive Protein Total Protein Albumin Albumin/Globulin Ratio TSH Blood Type Antibody Screen Crossmatch 03/15/22 03/16/22 03/16/22 21:31 04:56 04:56 WBC 4.6 RBC 2.66 L Hgb 7.8 L Hct 23.9 L MCV 90 MCH 29 MCHC 33 RDW 17.6 H Plt Count 223 Add Manual Diff Total Counted Seg Neutrophils % Seg Neuts % (Manual) Band Neutrophils % Lymphocytes % (Manual) Reactive Lymphs % (Man) Monocytes % (Manual) Eosinophils % (Manual) Basophils % (Manual) Metamyelocytes % Myelocytes % Promyelocytes % Blast Cells % Nucleated RBC % Seg Neutrophils # Man Band Neutrophils # Lymphocytes # (Manual) Abs React Lymphs (Man) Monocytes # (Manual) Eosinophils # (Manual) Basophils # (Manual) Metamyelocytes # Myelocytes # Promyelocytes # Blast Cells # WBC Morphology Hypersegmented Neuts Hyposegmented Neuts Hypogranular Neuts Smudge Cells Toxic Granulation Toxic Vacuolation Dohle Bodies Pelger-Huet Anomaly Charissa Rods Platelet Estimate Clumped Platelets Plt Clumps, EDTA Large Platelets Giant Platelets Platelet Satelliting Plt Morphology Comment RBC Morphology Dimorphic RBCs Polychromasia Hypochromasia Poikilocytosis Anisocytosis Microcytosis Macrocytosis Spherocytes Pappenheimer Bodies Sickle Cells Target Cells Tear Drop Cells Ovalocytes Helmet Cells [place] Bodies Cogswell Rings Zaira Cells Bite Cells Crenated Cell Elliptocytes Acanthocytes (Spur) Rouleaux Hemoglobin C Crystals Schistocytes Malaria parasites Escobar Bodies Hem Pathologist Commnt Sodium 141 Potassium 3.3 L Chloride 104.5 Carbon Dioxide 27 Anion Gap 13 BUN 28 H Creatinine 0.6 L Estimated GFR > 60 BUN/Creatinine Ratio 47 Glucose 68 L POC Glucose Lactic Acid Calcium 8.1 L Phosphorus 3.00 Magnesium 1.70 Total Bilirubin 0.50 0.50 Direct Bilirubin < 0.2 Indirect Bilirubin 0.3 AST 24 22 ALT 27 25 Alkaline Phosphatase 68 66 C-Reactive Protein 8.10 H Total Protein 5.6 L 5.2 L Albumin 2.5 L 2.4 L Albumin/Globulin Ratio 0.8 0.9 TSH Blood Type Antibody Screen Crossmatch 03/16/22 03/16/22 03/16/22 04:56 07:31 08:26 WBC RBC Hgb Hct MCV MCH MCHC RDW Plt Count Add Manual Diff Total Counted Seg Neutrophils % Seg Neuts % (Manual) Band Neutrophils % Lymphocytes % (Manual) Reactive Lymphs % (Man) Monocytes % (Manual) Eosinophils % (Manual) Basophils % (Manual) Metamyelocytes % Myelocytes % Promyelocytes % Blast Cells % Nucleated RBC % Seg Neutrophils # Man Band Neutrophils # Lymphocytes # (Manual) Abs React Lymphs (Man) Monocytes # (Manual) Eosinophils # (Manual) Basophils # (Manual) Metamyelocytes # Myelocytes # Promyelocytes # Blast Cells # WBC Morphology Hypersegmented Neuts Hyposegmented Neuts Hypogranular Neuts Smudge Cells Toxic Granulation Toxic Vacuolation Dohle Bodies Pelger-Huet Anomaly Charissa Rods Platelet Estimate Clumped Platelets Plt Clumps, EDTA Large Platelets Giant Platelets Platelet Satelliting Plt Morphology Comment RBC Morphology Dimorphic RBCs Polychromasia Hypochromasia Poikilocytosis Anisocytosis Microcytosis Macrocytosis Spherocytes Pappenheimer Bodies Sickle Cells Target Cells Tear Drop Cells Ovalocytes Helmet Cells [place] Bodies Cogswell Rings Zaira Cells Bite Cells Crenated Cell Elliptocytes Acanthocytes (Spur) Rouleaux Hemoglobin C Crystals Schistocytes Malaria parasites Escobar Bodies Hem Pathologist Commnt Sodium Potassium Chloride Carbon Dioxide Anion Gap BUN Creatinine Estimated GFR BUN/Creatinine Ratio Glucose POC Glucose 63 L 100 Lactic Acid Calcium Phosphorus Magnesium Total Bilirubin Direct Bilirubin Indirect Bilirubin AST ALT Alkaline Phosphatase C-Reactive Protein Total Protein Albumin Albumin/Globulin Ratio TSH 1.320 Blood Type Antibody Screen Crossmatch Medications & Allergies - Medications Allergies/Adverse Reactions: Allergies No Known Allergies Allergy (Verified 03/13/22 21:19) Home Medications: Home Medications Medication Instructions Recorded Confirmed Last Taken Type Potassium Chloride 10 meq PO QDAY 14 Days #14 tab 03/14/22 Unknown Rx levoFLOXacin [Levaquin] 250 mg PO QDAY 5 Days #5 tablet 03/14/22 Unknown Rx Amlodipine Besylate [Norvasc] 10 mg PO DAILY 03/15/22 03/15/22 Unknown History Bicalutamide 50 mg PO DAILY 03/15/22 03/15/22 Unknown History Clopidogrel [Plavix] 75 mg PO DAILY 03/15/22 03/15/22 Unknown History Insulin Lispro [Admelog] See Protocol 03/15/22 Unknown History Linagliptin [Tradjenta] 5 mg PO QDAY 03/15/22 03/15/22 Unknown History Pantoprazole [Protonix TAB] 40 tab PO DAILY 03/15/22 03/15/22 Unknown History Rosuvastatin Calcium [Crestor] 40 mg PO 03/15/22 Unknown History hydroCHLOROthiazide 12.5 mg PO 03/15/22 Unknown History [Hydrochlorothiazide] Active Medications: Generic Name Dose Route Start Last Admin Trade Name Freq PRN Reason Stop Dose Admin Acetaminophen 650 mg 03/13/22 22:40 Acetaminophen 325 Mg Tab PO Q4H PRN Pain MILD(1-3)/Fever >100.5/DIAZ Atorvastatin Calcium 40 mg 03/15/22 22:00 03/15/22 22:03 Atorvastatin 40 Mg Tab PO 40 mg QHS IBRAHIMA Administration Dextrose 0 ml 03/13/22 22:40 03/16/22 11:40 Dextrose 50% In Water (25gm) 50 Ml Syringe IV 50 ml Q30MIN PRN Administration Hypoglycemia Protocol Famotidine 20 mg 03/15/22 10:00 03/16/22 10:31 Famotidine 20 Mg/2 Ml Inj IV 20 mg QDAY IBRAHIMA Administration Ceftriaxone Sodium 1 gm in 50 mls @ 100 mls/hr 03/14/22 22:00 03/15/22 22:00 Rocephin/Ns 1 Gm/50 Ml IV 100 mls/hr Q24H IBRAHIMA Administration Protocol AMIODARONE HCL 450 mg/ 250 mls @ 33.333 mls/hr 03/15/22 01:08 03/16/22 06:00 Dextrose IV 0.5 mg/min DIRECT IBRAHIMA 16.667 mls/hr Administration Protocol 1 MG/MIN Sodium Chloride 1,000 mls @ 100 mls/hr 03/15/22 23:30 03/16/22 01:06 Nacl 0.9% 1000 Ml IV 03/17/22 09:29 100 mls/hr DIRECT IBRAHIMA Administration Insulin Human Lispro 0 unit 03/14/22 07:30 03/16/22 11:37 Insulin Lispro 100 Unit/Ml SUB-Q Not Given ACHS IBRHAIMA Protocol Magnesium Hydroxide 30 ml 03/13/22 22:40 Magnesium Hydroxide (Mom) Oral Liqd Udc PO Q4H PRN Constipation Metoprolol Tartrate 25 mg 03/16/22 13:00 Metoprolol Tartrate 25 Mg Tab PO BID IBRAHIMA Ondansetron HCl 4 mg 03/13/22 22:40 Ondansetron 4 Mg/2 Ml Inj IV Q8H PRN Nausea And Vomiting Potassium Chloride 40 meq 03/16/22 10:00 03/16/22 10:31 Potassium Chloride Er 20 Meq Tab PO 40 meq BID IBRAHIMA Administration Sodium Chloride 10 ml 03/14/22 10:00 03/16/22 10:31 Sodium Chloride 0.9% 10 Ml Flush Syringe IV 10 ml BID IBRAHIMA Administration Sodium Chloride 10 ml 03/13/22 22:40 Sodium Chloride 0.9% 10 Ml Flush Syringe IV PRN PRN LINE FLUSH
[2022-03-16 17:57] LABS: Hematocrit 24.3 % (35.5-45.6); Hemoglobin 8.1 gm/dl (11.8-15.2)
[2022-03-16] MEDS: METOPROLOL TARTRATE 25 MG TAB PO SCH ×2 (18:00→23:04)
[2022-03-16] MEDS: cefTRIAXone/NS 1 GM/50 ML 1 GM/50 ML BAG IV SCH (23:05)
[2022-03-16] MEDS: PANTOPRAZOLE 40 MG INJ IV SCH (23:06)
[2022-03-17] MEDS: INSULIN LISPRO 100 UNIT/ML SUB-Q SCH ×4 (04:52→16:33)
[2022-03-17] MEDS: HEPARIN 5,000 UNIT/1 ML VIAL SUB-Q SCH (04:53)
[2022-03-17 05:07] LABS: Hematocrit 23.2 % (35.5-45.6); Hemoglobin 7.8 gm/dl (11.8-15.2); Mean Corpuscular HGB Conc 33 % (32-34); Mean Corpuscular Volume 90 fl (84-94); Platelet Count 196 K/mm3 (140-440); Red Blood Count 2.59 M/mm3 (3.65-5.03); Red Cell Distribution Width 17.9 % (13.2-15.2)
[2022-03-17 05:18] LABS: Blood Urea Nitrogen 23 mg/dL (9-20); Calcium 8.2 mg/dL (8.4-10.2); Hemolysis Index 1
[2022-03-17 05:20] LABS: BUN/Creatinine Ratio 38
[2022-03-17] MEDS ORDERED: DEXAMETHASONE 2 MG TAB PO SCH (10:00)
[2022-03-17] MEDS: METOPROLOL TARTRATE 25 MG TAB PO SCH (10:26)
[2022-03-17] MEDS: PANTOPRAZOLE 40 MG INJ IV SCH (10:29)
[2022-03-17] MEDS: POTASSIUM CHLORIDE ER 20 MEQ TAB PO SCH (10:29)
--- NOTE | 2022-03-17 12:35 | Progress Note ---
Hospitalist Physical - Constitutional Vitals: Temp Pulse Resp BP Pulse Ox 97.7 F 55 L 14 106/53 89 03/17/22 11:48 03/17/22 10:26 03/17/22 08:30 03/17/22 10:26 03/17/22 08:30 General appearance: Present: no acute distress, well-nourished Results - Labs CBC & Chem 7: 03/17/22 04:33 03/17/22 04:33 Labs: Laboratory Last Values WBC 4.2 K/mm3 (4.5-11.0) L 03/17/22 04:33 RBC 2.59 M/mm3 (3.65-5.03) L 03/17/22 04:33 Hgb 7.8 gm/dl (11.8-15.2) L 03/17/22 04:33 Hct 23.2 % (35.5-45.6) L 03/17/22 04:33 MCV 90 fl (84-94) 03/17/22 04:33 MCH 30 pg (28-32) 03/17/22 04:33 MCHC 33 % (32-34) 03/17/22 04:33 RDW 17.9 % (13.2-15.2) H 03/17/22 04:33 Plt Count 196 K/mm3 (140-440) 03/17/22 04:33 Lymph % (Auto) 22.7 % (13.4-35.0) 03/14/22 06:09 [place]calfe % (Auto) 9.7 % (0.0-7.3) H 03/14/22 06:09 Eos % (Auto) 0.1 % (0.0-4.3) 03/14/22 06:09 Baso % (Auto) 0.2 % (0.0-1.8) 03/14/22 06:09 Lymph # (Auto) 0.8 K/mm3 (1.2-5.4) L 03/14/22 06:09 Metcalfe # (Auto) 0.3 K/mm3 (0.0-0.8) 03/14/22 06:09 Eos # (Auto) 0.0 K/mm3 (0.0-0.4) 03/14/22 06:09 Baso # (Auto) 0.0 K/mm3 (0.0-0.1) 03/14/22 06:09 Add Manual Diff Complete 03/15/22 21:31 Total Counted 100 03/15/22 21:31 Seg Neutrophils % Clinical Trial Manager 03/15/22 21:31 Seg Neuts % (Manual) 98.0 % (40.0-70.0) H 03/15/22 21:31 Band Neutrophils % 0 % 03/15/22 21:31 Lymphocytes % (Manual) 2.0 % (13.4-35.0) L 03/15/22 21:31 Reactive Lymphs % (Man) 0 % 03/15/22 21:31 Monocytes % (Manual) 0 % (0.0-7.3) 03/15/22 21:31 Eosinophils % (Manual) 0 % (0.0-4.3) 03/15/22 21:31 Basophils % (Manual) 0 % (0.0-1.8) 03/15/22 21:31 Metamyelocytes % 0 % 03/15/22 21:31 Myelocytes % 0 % 03/15/22 21:31 Promyelocytes % 0 % 03/15/22 21:31 Blast Cells % 0 % 03/15/22 21:31 Nucleated RBC % Not Reportable 03/15/22 21:31 Seg Neutrophils # 2.3 K/mm3 (1.8-7.7) 03/14/22 06:09 Seg Neutrophils # Man 4.5 K/mm3 (1.8-7.7) 03/15/22 21:31 Band Neutrophils # 0.0 K/mm3 03/15/22 21:31 Lymphocytes # (Manual) 0.1 K/mm3 (1.2-5.4) L 03/15/22 21:31 Abs React Lymphs (Man) 0.0 K/mm3 03/15/22 21:31 Monocytes # (Manual) 0.0 K/mm3 (0.0-0.8) 03/15/22 21:31 Eosinophils # (Manual) 0.0 K/mm3 (0.0-0.4) 03/15/22 21:31 Basophils # (Manual) 0.0 K/mm3 (0.0-0.1) 03/15/22 21:31 Metamyelocytes # 0.0 K/mm3 03/15/22 21:31 Myelocytes # 0.0 K/mm3 03/15/22 21:31 Promyelocytes # 0.0 K/mm3 03/15/22 21:31 Blast Cells # 0.0 K/mm3 03/15/22 21:31 WBC Morphology Not Reportable 03/15/22 21:31 Hypersegmented Neuts Not Reportable 03/15/22 21:31 Hyposegmented Neuts Not Reportable 03/15/22 21:31 Hypogranular Neuts Not Reportable 03/15/22 21:31 Smudge Cells Not Reportable 03/15/22 21:31 Toxic Granulation Not Reportable 03/15/22 21:31 Toxic Vacuolation Not Reportable 03/15/22 21:31 Dohle Bodies Not Reportable 03/15/22 21:31 Pelger-Huet Anomaly Not Reportable 03/15/22 21:31 Charissa Rods Not Reportable 03/15/22 21:31 Platelet Estimate Consistent w auto 03/15/22 21:31 Clumped Platelets Not Reportable 03/15/22 21:31 Plt Clumps, EDTA Not Reportable 03/15/22 21:31 Large Platelets Not Reportable 03/15/22 21:31 Giant Platelets Not Reportable 03/15/22 21:31 Platelet Satelliting Not Reportable 03/15/22 21:31 Plt Morphology Comment Not Reportable 03/15/22 21:31 RBC Morphology Not Reportable 03/15/22 21:31 Dimorphic RBCs Not Reportable 03/15/22 21:31 Polychromasia Not Reportable 03/15/22 21:31 Hypochromasia Not Reportable 03/15/22 21:31 Poikilocytosis Not Reportable 03/15/22 21:31 Anisocytosis Not Reportable 03/15/22 21:31 Microcytosis Not Reportable 03/15/22 21:31 Macrocytosis Not Reportable 03/15/22 21:31 Spherocytes Not Reportable 03/15/22 21:31 Pappenheimer Bodies Not Reportable 03/15/22 21:31 Sickle Cells Not Reportable 03/15/22 21:31 Target Cells Not Reportable 03/15/22 21:31 Tear Drop Cells Not Reportable 03/15/22 21:31 Ovalocytes Not Reportable 03/15/22 21:31 Helmet Cells Not Reportable 03/15/22 21:31 Steven-Energy Bodies Not Reportable 03/15/22 21:31 [place] Rings Not Reportable 03/15/22 21:31 [place] Cells Not Reportable 03/15/22 21:31 Bite Cells Not Reportable 03/15/22 21:31 Crenated Cell Not Reportable 03/15/22 21:31 Elliptocytes Not Reportable 03/15/22 21:31 Acanthocytes (Spur) Not Reportable 03/15/22 21:31 Rouleaux Not Reportable 03/15/22 21:31 Hemoglobin C Crystals Not Reportable 03/15/22 21:31 Schistocytes Not Reportable 03/15/22 21:31 Malaria parasites Not Reportable 03/15/22 21:31 Percent Retic 2.62 % (0.78-2.58) H 03/14/22 13:17 Escobar Bodies Not Reportable 03/15/22 21:31 Hem Pathologist Commnt No 03/15/22 21:31 PT 16.0 Sec. (12.2-14.9) H 03/13/22 18:34 INR 1.15 (0.87-1.13) H 03/13/22 18:34 APTT 39.9 Sec. (24.2-36.6) H 03/13/22 18:34 Sodium 142 mmol/L (137-145) 03/17/22 04:33 Potassium 3.5 mmol/L (3.6-5.0) L 03/17/22 04:33 Chloride 106.4 mmol/L (98-107) 03/17/22 04:33 Carbon Dioxide 26 mmol/L (22-30) 03/17/22 04:33 Anion Gap 13 mmol/L 03/17/22 04:33 BUN 23 mg/dL (9-20) H 03/17/22 04:33 Creatinine 0.6 mg/dL (0.8-1.3) L 03/17/22 04:33 Estimated GFR > 60 ml/min 03/17/22 04:33 BUN/Creatinine Ratio 38 % 03/17/22 04:33 Glucose 116 mg/dL (75-100) H 03/17/22 04:33 POC Glucose 126 mg/dL (70-105) H 03/17/22 11:24 Lactic Acid 1.60 mmol/L (0.7-2.0) 03/16/22 16:20 Calcium 8.2 mg/dL (8.4-10.2) L 03/17/22 04:33 Phosphorus 3.00 mg/dL (2.5-4.5) 03/17/22 04:33 Magnesium 2.00 mg/dL (1.7-2.3) 03/17/22 04:33 Total Bilirubin 0.50 mg/dL (0.1-1.2) 03/16/22 04:56 Direct Bilirubin < 0.2 mg/dL (0-0.2) 03/15/22 21:31 Indirect Bilirubin 0.3 mg/dL 03/15/22 21:31 AST 22 units/L (5-40) 03/16/22 04:56 ALT 25 units/L (7-56) 03/16/22 04:56 Alkaline Phosphatase 66 units/L (35-129) 03/16/22 04:56 Lactate Dehydrogenase 244 units/L (91-180) H 03/14/22 13:17 C-Reactive Protein 8.10 mg/dL (0.00-1.30) H 03/15/22 21:31 NT-Pro-B Natriuret Pep 2345 pg/mL (0-900) H 03/13/22 18:34 Total Protein 5.2 g/dL (6.3-8.2) L 03/16/22 04:56 Albumin 2.4 g/dL (3.9-5) L 03/16/22 04:56 Albumin/Globulin Ratio 0.9 % 03/16/22 04:56 Procalcitonin 0.57 ng/mL (<0.15) 03/15/22 21:31 TSH 1.320 mlU/mL (0.270-4.200) 03/16/22 04:56 Urine Color Yellow (Yellow) 03/13/22 Unknown Urine Turbidity Hazy (Clear) 03/13/22 Unknown Specific Carpenter (Man) 1.010 (1.003-1.030) 03/13/22 Unknown Ur Protein (Man) 1+ mg/dL (Negative) 03/13/22 Unknown Ur Ketones (Man) Negative (Negative) 03/13/22 Unknown Ur Nitrite (Man) Negative (Negative) 03/13/22 Unknown Ur Reducing Substances Not Reportable 03/13/22 Unknown Urine Bilirubin (Man) Negative (Negative) 03/13/22 Unknown Urine Ictotest Not Reportable 03/13/22 Unknown Leukocyte Esterase (Man) Small (Negative) 03/13/22 Unknown Urine WBC (Auto) 183.0 /HPF (0.0-6.0) H 03/13/22 Unknown Urine RBC (Auto) 17.0 /HPF (0.0-6.0) 03/13/22 Unknown U Epithel Cells (Auto) 1.0 /HPF (0-13.0) 03/13/22 Unknown Urine Bacteria (Auto) 3+ /HPF (Negative) 03/13/22 Unknown Urine RBC (Manual) 5+ (Negative) 03/13/22 Unknown Urine WBC Clumps 2+ /HPF 03/13/22 Unknown Urine Mucus Few /HPF 03/13/22 Unknown Urine Yeast (Budding) 3+ /HPF 03/13/22 Unknown SARS-CoV-2 (PCR) Positive (Negative) A 03/14/22 15:10 Blood Type O POSITIVE 03/13/22 18:34 Antibody Screen Negative 03/13/22 18:34 Direct Antiglob Test Negative 03/15/22 05:11 CLEMENT, Poly Interpret Negative 03/15/22 05:11 Crossmatch See Detail 03/13/22 18:34 Microbiology: Microbiology 03/15/22 21:53 Peripheral/Venous Blood Culture - Preliminary NO GROWTH AFTER 24 HOURS 03/15/22 21:31 Peripheral/Venous Blood Culture - Preliminary NO GROWTH AFTER 24 HOURS 03/16/22 Unknown Stool Stool Occult Blood (SABAS) - Final 03/15/22 Unknown Urine,Clean Catch Urine Culture - Preliminary Bourne/IV: Voiding Method Condom Catheter Active Medications - Current Medications Current Medications: Generic Name Dose Route Start Last Admin Trade Name Freq PRN Reason Stop Dose Admin Acetaminophen 650 mg 03/13/22 22:40 Acetaminophen 325 Mg Tab PO Q4H PRN Pain MILD(1-3)/Fever >100.5/DIAZ Atorvastatin Calcium 40 mg 03/15/22 22:00 03/16/22 23:04 Atorvastatin 40 Mg Tab PO 40 mg QHS IBRAHIMA Administration Dexamethasone 6 mg 03/17/22 10:00 03/17/22 10:29 Dexamethasone 2 Mg Tab PO 03/26/22 10:01 6 mg Q24HR IBRAHIMA Administration Dextrose 0 ml 03/13/22 22:40 03/16/22 16:43 Dextrose 50% In Water (25gm) 50 Ml Syringe IV 10 ml Q30MIN PRN Administration Hypoglycemia Protocol Ceftriaxone Sodium 1 gm in 50 mls @ 100 mls/hr 03/14/22 22:00 03/16/22 23:05 Rocephin/Ns 1 Gm/50 Ml IV 03/20/22 22:29 100 mls/hr Q24H IBRAHIMA Administration Protocol Insulin Human Lispro 0 unit 03/14/22 07:30 03/17/22 11:52 Insulin Lispro 100 Unit/Ml SUB-Q Not Given ACHS IBRAHIMA Protocol Magnesium Hydroxide 30 ml 03/13/22 22:40 Magnesium Hydroxide (Mom) Oral Liqd Udc PO Q4H PRN Constipation Metoprolol Tartrate 12.5 mg 03/16/22 18:00 03/17/22 10:26 Metoprolol Tartrate 25 Mg Tab PO Not Given BID IBRAHIMA Ondansetron HCl 4 mg 03/13/22 22:40 Ondansetron 4 Mg/2 Ml Inj IV Q8H PRN Nausea And Vomiting Pantoprazole Sodium 40 mg 03/16/22 22:00 03/17/22 10:29 Pantoprazole 40 Mg Inj IV 40 mg BID IBRAHIMA Administration Potassium Chloride 40 meq 03/16/22 10:00 03/17/22 10:29 Potassium Chloride Er 20 Meq Tab PO 40 meq BID IBRAHIMA Administration Sodium Chloride 10 ml 03/14/22 10:00 03/17/22 10:30 Sodium Chloride 0.9% 10 Ml Flush Syringe IV 10 ml BID IBRAHIMA Administration Sodium Chloride 10 ml 03/13/22 22:40 Sodium Chloride 0.9% 10 Ml Flush Syringe IV PRN PRN LINE FLUSH Nutrition/Malnutrition Assess - Dietary Evaluation Nutrition/Malnutrition Findings: Nutrition Notes Start: 03/14/22 13:14 Freq: Status: Active Protocol: Document 03/14/22 13:14 ADDY (Rec: 03/14/22 13:30 ADDY [id number]) Nutrition Notes Need for Assessment generated from: MD Order,Education Initial or Follow up Brief Note Current Diagnosis Decubitus(Pressure Ulcer), Diabetes,Hypertension,Stroke Other Pertinent Diagnosis AMS, Anemia, Hypokalemia, UTI, Prostate Cancer. Current Diet Cardiac/Consistent Carbohydrates Diet (since B ). Labs/Tests 03/14: K 3.0, CO2 33, BUN 18, Glu 166. Pertinent Medications 03/14: Nutritionally unremarkable. 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 Weight Status Appropriate Subjective/Other Information RD consult for nutrition education assessment. No reports available on Pt's PO intake of meals at the time , will assess at F/U. Pt is on Room Air, O2 saturation @ 95%, according to Physical Assessment History notes. Pt shows sacral decubitus ulcer stage III, and Skin breakdown on heels, as signs of concern for skin risk at the time, according to Admission Documents. Pt is a SNF resident, Pt needs total assistance with ADL activities, not a candidate for Nutrition Education. Percent of energy/protein needs met: Prescribed Cardiac/Consistent Carbohydrates Diet provides for energy/protein needs (1, 977 Kcal/86 g) during LOS. Nutrition Intervention Follow-Up By: 03/21/22 Additional Comments Continue monitoring food tolerance, %PO intake of meals , and BM.
--- NOTE | 2022-03-17 15:00 | Event Note ---
Date: 03/17/22 Full consult dictated - pt w/ noted anemia being evaluated by Hematology - reported noted single bout blood with wiping yesterday, none since - h/h unchanged - follow labs - no plans to scope at this time - will follow
--- NOTE | 2022-03-17 15:39 | Progress Note ---
Assessment and Plan Pt is an 81-year-old male who was sent from long-term for evaluation of decline in mental status and low Hgb on labs drawn at nursing facility Altered Mental Status COVID-19 Infection Moderate-Large Bilateral Pleural Effusions Severe [id number] following New Onset AF with RVR Hypokalemia Hypotension H/o HTN DM2 H/o CVA w/Residual L-Sided Hemiparesis Prostate CA (on Lupron per outpatient records) Plan: Telemetry reviewed patient converted to sinus rhythm currently sinus 60s with PV Will stop IV Amiodarone gtt for now. Continue metoprolol 12.5 mg p.o. twice daily. PRN repletion of electrolytes. Anticoagulation deferred in light of severe anemia. Will defer to heme-onc recommendation Echo pending. Pt seen in conjunction with Dr. Schuster, who agrees with the assessment and plan of care. - Patient Problems (1) Atrial fibrillation with RVR Current Visit: Yes Status: Acute (2) Bilateral pleural effusion Current Visit: Yes Status: Acute (3) COVID-19 Current Visit: Yes Status: Acute (4) CVA (cerebral vascular accident) Current Visit: Yes Status: Acute (5) Diabetes Current Visit: Yes Status: Acute (6) HTN (hypertension) Current Visit: Yes Status: Acute (7) Pleural effusion Current Visit: Yes Status: Acute (8) Severe anemia Current Visit: Yes Status: Acute Subjective Date of service: 03/17/22 Principal diagnosis: AF with RVR Interval history: Patient resting in bed in no acute distress. Patient remains altered mental status Patient converted to sinus rhythm on monitor currently sinus 60s with PVCs Objective Vital Signs Temp Pulse Pulse Resp BP Pulse Ox 03/17/22 14:30 67 17 104/54 100 03/17/22 14:00 70 14 109/56 91 03/17/22 13:30 88 11 L 123/68 99 03/17/22 13:00 57 L 12 118/62 99 03/17/22 12:30 73 11 L 119/60 100 03/17/22 12:00 70 55 L 12 101/63 100 03/17/22 11:48 97.7 F 03/17/22 11:30 75 11 L 120/64 100 03/17/22 11:00 63 13 116/66 100 03/17/22 10:30 65 11 L 100/53 100 03/17/22 10:26 55 L 106/53 03/17/22 10:00 54 L 12 112/60 100 03/17/22 09:30 83 11 L 125/48 100 03/17/22 09:00 85 12 111/69 03/17/22 08:30 76 14 101/52 89 03/17/22 08:00 51 L 55 L 12 104/71 100 03/17/22 07:30 57 L 10 L 111/66 63 L 03/17/22 07:22 97.6 F 03/17/22 07:00 77 12 124/65 95 03/17/22 06:30 71 12 98/65 95 03/17/22 06:00 67 14 125/40 100 03/17/22 05:30 97 H 11 L 138/85 91 03/17/22 05:00 80 80 12 121/66 100 03/17/22 04:30 64 15 107/83 87 03/17/22 04:00 97.8 F 03/17/22 03:10 63 14 101/59 03/17/22 03:00 67 13 135/35 03/17/22 02:50 77 12 135/35 03/17/22 02:40 84 13 138/95 03/17/22 02:30 66 12 138/95 03/17/22 02:20 94 H 13 77/47 03/17/22 02:10 63 11 L 102/78 03/17/22 02:00 68 12 102/78 03/17/22 01:50 72 14 113/71 03/17/22 01:40 66 12 88/70 03/17/22 01:30 79 15 105/78 03/17/22 01:20 76 10 L 105/78 03/17/22 01:10 79 15 128/92 03/17/22 01:00 66 9 L 156/94 03/17/22 00:50 74 11 L 195/154 03/17/22 00:40 72 14 156/94 03/17/22 00:30 60 14 125/98 03/17/22 00:20 60 14 135/63 03/17/22 00:10 71 14 125/98 03/17/22 00:00 98 F 79 71 14 136/79 96 03/16/22 23:50 68 16 142/102 03/16/22 23:40 64 13 136/79 03/16/22 23:31 70 13 112/61 03/16/22 23:21 78 11 L 112/61 03/16/22 23:11 75 12 125/80 03/16/22 23:04 57 L 125/80 03/16/22 23:00 55 L 15 111/81 03/16/22 22:51 69 12 111/81 03/16/22 22:41 75 13 99/58 03/16/22 22:31 81 13 99/58 03/16/22 22:21 59 L 13 142/86 03/16/22 22:11 62 17 133/76 03/16/22 22:00 72 13 133/76 03/16/22 21:51 59 L 13 126/61 03/16/22 21:41 64 12 134/77 03/16/22 21:31 63 12 134/77 03/16/22 21:21 60 12 137/87 03/16/22 21:11 67 12 150/105 03/16/22 21:00 71 18 150/105 60 L 03/16/22 20:51 55 L 12 139/107 03/16/22 20:41 54 L 12 143/59 03/16/22 20:31 57 L 12 143/59 03/16/22 20:21 77 10 L 127/61 03/16/22 20:11 59 L 12 126/69 03/16/22 20:01 56 L 13 118/68 03/16/22 20:00 98.4 F 58 L 68 15 96 03/16/22 19:51 54 L 11 L 118/68 03/16/22 19:43 61 12 99/77 03/16/22 19:41 53 L 12 99/77 03/16/22 19:31 58 L 11 L 99/77 03/16/22 19:21 57 L 12 126/85 03/16/22 19:11 66 11 L 86/59 03/16/22 19:01 52 L 12 138/90 03/16/22 18:51 74 10 L 90/56 67 L 03/16/22 18:41 59 L 12 138/90 66 L 03/16/22 18:35 63 12 138/90 03/16/22 18:23 138/90 84 03/16/22 18:11 51 L 12 123/38 99 03/16/22 18:01 69 11 L 123/38 03/16/22 18:00 54 L 127/48 03/16/22 17:51 59 L 12 127/49 78 L 03/16/22 17:41 52 L 17 106/55 03/16/22 17:31 51 L 10 L 129/104 03/16/22 17:21 59 L 11 L 129/104 03/16/22 17:11 49 L 13 137/90 03/16/22 17:01 49 L 11 L 137/90 03/16/22 16:51 59 L 14 136/50 03/16/22 16:41 56 L 12 141/53 03/16/22 16:31 54 L 12 141/53 03/16/22 16:24 97.9 F 03/16/22 16:21 65 13 152/90 96 03/16/22 16:11 58 L 10 L 103/61 03/16/22 16:01 70 13 103/61 03/16/22 16:00 60 70 13 96 03/16/22 15:51 70 9 L 111/72 03/16/22 15:41 64 18 112/77 - Physical Examination General: No Apparent Distress HEENT: Positive: Mucus Membranes Dry Cardiac: Positive: Reg Rate and Rhythm Lungs: Positive: Normal Breath Sounds Neuro: Positive: Other (Unable to assess) Abdomen: Positive: Soft Skin: Negative: Rash, Suspicious Lesions, Ulceration Extremities: Present: upper extr. pulses. Absent: edema - Labs and Meds CBC 03/16/22 03/17/22 Range/Units 16:20 04:33 WBC 4.2 L (4.5-11.0) K/mm3 RBC 2.59 L (3.65-5.03) M/mm3 Hgb 8.1 L 7.8 L (11.8-15.2) gm/dl Hct 24.3 L 23.2 L (35.5-45.6) % Plt Count 217 196 (140-440) K/mm3 Comprehensive Metabolic Panel 03/17/22 Range/Units 04:33 Sodium 142 (137-145) mmol/L Potassium 3.5 L (3.6-5.0) mmol/L Chloride 106.4 (98-107) mmol/L Carbon Dioxide 26 (22-30) mmol/L BUN 23 H (9-20) mg/dL Creatinine 0.6 L (0.8-1.3) mg/dL Glucose 116 H (75-100) mg/dL Calcium 8.2 L (8.4-10.2) mg/dL - Imaging and Cardiology EKG: report reviewed, image reviewed Echo: pending - Telemetry EKG Rhythm: Sinus Rhythm - EKG Sinus rhythms and dysrhythmias: sinus rhythm Repolarization changes or abnormalities: nonspecific abnormality, ST segment, and/or T wave - Allied health notes Allied health notes reviewed: nursing
--- NOTE | 2022-03-17 16:12 | Discharge Summary ---
Providers - Providers Date of Admission: 03/13/22 22:41 Attending physician: ABELARDO VALVERDE MD 03/13/22 22:25 Consult to Wound/ET Nurse [CONS] Urgent Reason For Exam: wound eval 03/13/22 22:40 Consult to Physician [CONS] Routine Comment: Consulting Provider: GERARDO HASTINGS Physician Instructions: Reason For Exam: Anemia- Normocytic 03/13/22 22:41 Consult to Dietitian/Nutrition [CONS] Routine Physician Instructions: Reason For Exam: Reason for Consult: Diet education 03/15/22 01:58 Consult to Physician [CONS] Routine Comment: Consulting Provider: DEEPA GOMEZ Physician Instructions: Reason For Exam: Hypotension, A. fib with RVR 03/15/22 09:35 Consult to Physician [CONS] Routine Comment: spoke to answering service/halle Consulting Provider: NATHAN LEONARDO Physician Instructions: Reason For Exam: Afib RVR 03/16/22 18:21 Consult to Physician [CONS] Routine Comment: Consulting Provider: DOREEN HELLER Physician Instructions: Reason For Exam: Anemia, +Stool occult Primary care physician: PIERCE PHILLIPS MD Hospitalization Reason for admission: Altered mental status Condition: Stable Hospital course: This is a 81-year-old AA who reside in a correction with known past medical history of hypertension, diabetes mellitus, CVA with left hemiparesis, and prostate CA initially admitted to the floor for AMS and normocytic anemia. Patient ws transferred to the ICU on 03/14 for new onset Afib with RVR and hypotension Hospital Course to Date: 03/15: Patient remains in Afib, HR in the 90 to 110s, remains on amiodarone gtt. BP remains labile, not on any pressors. Hgb is 5.5 this am, no s/s of any active bleeding, 2units of PRBCs ordered, will hold AC for now. Hematology recommendations noted. Patient is also with low grade temp, remains on IV Rocephin for UTI, cultures and procal pending. COVID PCR came back positive, patient is stable on RA. Will continue to monitor for now. Cardiology consulted and CCM is also following. 03/16: Remains in AFIB, control rate this morning. Still on Amiodarone gtt. Patient remains afebrile, VSS. BB added per Cardio. S/p 2Units of PRBCs orvernight, H&H stable this am. No report of any s/s of any active bleeding. Hematology is following. Will continue to trend H&H, transfuse for H&H less than 7. Hypoglycemic this am, treated per hypoglycemic protocol. Encourage PO, nutrition consulted. K and mag repleted, continue to monitor and replace electrolytes as needed. Dark stools noted this afternoon, sample sent to the lab. Repeat stool occult came back positive. PPI switched to protonix BID and GI consulted. Continue to monitor H&H. 03/17: Patient today remains clinically stable. GI was reconsulted due to dark stool noted they did not feel the patient needs to be endoscoped at this time. Patient will follow up with them outpatient I did update the son on all findings or hospitalization recommended an outpatient hematology evaluation in addition to his urologist for management of his underlying prostate cancer. Also recommended repeat of his lab works. He is at this time not a candidate for anticoagulation based on his anemia and also cardiology recommendation. Assessment and Plan #New Onset Atrial Fibrillation with RVR #H/o Hypertension -Remains in AFIB with RVR, BP labile -on Amiodarone gtt -Cardiology consulted -BB added BID -Hold all antihypertensive agents -Continue blood pressure monitor per protocol -Maintain MAP above 65 -Not a candidate for AC due to anemia #Normocytic anemia -Baseline hemoglobin unknown, presented with hemoglobin 6.4 -S/p 3 unit of PRBCs -CT angiogram of the abdomen pelvis did not reveal evidence of bleed, fecal occult negative -source of blood loss unknown -H&H stable this am -No s/s of any active bleeding -Hematology oncology consulted, assistance appreciated -transfuse for hgb less than 7 #Bilateral Pleural Effusion #COVID infection -Remains stable on 2L NC -Continue O2 supplemenation and wean as tolerated -CCM is following -Aspiration precaution -Continue SPO2 monitoring for SPO2 goal above 92% #Acute cystitis with hematuria #COVID infection -continue rocephin -Cultures pending, check procal -COVID PCR +, patient stable on 2L NC -Continue to monitor #Hypokalemia -K-repleted, repeat labs pending -Continue to monitor and replace electrolytes as needed -may require supplementation after discharge #Acute metabolic encephalopathy now resolved #prostate Cancer -Was on Bicalutamine at the correction -Med on hold for now -Continue supportive care #History of CVA with left hemiparesis -Chronic, continue supportive measures -Frequent reorientation -Avoid benzodiazepine to reduce the possibility of delirium -PRN Analgesia for pain control -Maintenance of sleep-wake cycle -Fall precautions #Type 2 Diabetes Mellitus -BG check and SSI ACHS -Avoid hypoglycemia -Hypoglycemic protocol #Advance Care Planning - Disease education data, care plan, diagnoses, and prognosis were discussed with the patient's son, Naeem Parks. Patient is a FULL code. Patient's son acknowledged understanding and agreed with current care plan. Disposition: 03 [facility] Final Discharge Diagnosis (Prints w/discharge instructions): #New Onset Atrial Fibrillation with RVR. #H/o Hypertension. #Normocytic anemia. #Bilateral Pleural Effusion. #COVID infection. #Acute cystitis with hematuria. #COVID infection. #Hypokalemia. #Prostate Cancer. #Acute metabolic encephalopathy. #History of CVA with left hemiparesis. #Type 2 Diabetes Mellitus Time spent for discharge: 35 minutes Core Measure Documentation - Palliative Care Palliative Care/ Comfort Measures: Not Applicable - Core Measures Any of the following diagnoses?: none Exam - Physical Exam Narrative exam: Physical exam Narrative exam: General appearance: Present: no acute distress, well-nourished - EENT Eyes: Present: PERRL ENT: hearing intact - Neck Neck: Present: normal ROM - Respiratory Respiratory effort: normal Respiratory: bilateral: diminished - Cardiovascular Rhythm: regular Heart Sounds: Present: S1 & S2 - Extremities Extremities: no ischemia, pulses intact, pulses symmetrical Extremity abnormal: edema - Peripheral Assessment Left Upper Extremity Edema Type: Pitting Edema Degree: 3+ Capillary Refill: < 3 seconds Skin Temperature: Warm Bilateral Lower Extremity Edema Type: Pitting Edema Degree: 2+ Capillary Refill: < 3 seconds Skin Temperature: Warm Generalized Edema Type: Non-pitting Edema Degree: 2+ Capillary Refill: < 3 seconds Skin Temperature: Warm Peripheral Pulses: within normal limits - Abdominal General gastrointestinal: soft, non-distended, normal bowel sounds - Integumentary Integumentary: Present: warm, dry - Psychiatric Psychiatric: appropriate mood/affect, cooperative, - Neurologic Neurologic: moves all extremities (LUE weakness), other (Bilateral foot drops) - Allied Health Allied health notes reviewed: nursing, case management - Constitutional Vitals: Temp Pulse Resp BP Pulse Ox 97.7 F 67 17 104/54 100 03/17/22 11:48 03/17/22 14:30 03/17/22 14:30 03/17/22 14:30 03/17/22 14:30 Plan Activity: advance as tolerated, fall precautions Diet: low fat Special Instructions: record daily weights, record daily BP diary Care Plan Goals: Please follow with your primary care provider. also with urologist: Dr Phill Huynh MD Follow up with [facility] Dean Please take all medications as they are prescribed to you. There was no observed bleeding during this hospitalization. Follow up with: PIERCE PHILLIPS MD [Primary Care Provider] - 3-5 Days NATHAN LEONARDO MD [Staff Physician] - 7 Days CHANDANA RICH MD [Staff Physician] - 7 Days MILLIE SMITH MD [Staff Physician] - 7 Days Prescriptions: dexAMETHasone [Decadron] 6 mg PO Q24HR #5 tablet Potassium Chloride [K-Dur] 40 meq PO BID #4 tablet Metoprolol [Lopressor TAB] 12.5 mg PO BID #60 tablet Potassium Chloride 10 meq PO QDAY 14 Days #14 tab
--- NOTE | 2022-03-17 16:22 | Progress Note ---
Assessment and Plan A-fib with RVR Normocytic anemia CHF Hypokalemia Pleural effusion Coronavirus infection HTN DM II CVA - 2D ECHO reveals low normal EF with mild pulm HTN - A-fib rate controlled (no anticoagulation while anemia worked up_ - follow SPEP/ UPEP - seen by GI team; no plans for endoscopy - prn supplemental oxygen to keep O2 sats > 90% - prn bronchodilators (HIGINIO) with pulm hygiene per RT - avoid nephrotoxins, renally dose all medications - AB's per ID recommendations - mobility protocols to prevent pressure ulcers - PT/OT as tolerated - Wound care per RN/WCT - continue accuchecks with glycemic control per SSI for target blood glucose < 180 mg/dL - home oxygen evaluation at discharge - GI & VTE prophylaxis - Flu & pneumovax per protocol - continue other care per attending / other consultants - prn analgesia per pain score COVID SPECIFIC INTERVENTIONS - Remdesivir as per ID/Pulmonary developed protocols - systemic steroids for severe COVID-19 infection empirically (on room air) - follow repeat COVID tests results - zinc and vitamin C supplementation - Monitor inflammatory markers per facility protocol - ferritin, Ddimer, CRP - therapeutic anticoagulation per system Protocol based on d-dimer and clinical considerations - Continue contact and airborne isolation ... re-evaluate in am & prn Subjective Date of service: 03/17/22 Principal diagnosis: A-fib with RVR; Anemia; CHF; COVID-19 infection; HTN; DM I I; CVA Interval history: Patient is seen today for: A-fib with RVR; Anemia; CHF; Pleural effusion; COVID- 19 infection; HTN; DM II; CVA Seen and examined at bedside; 24hour events reviewed; nursing and respiratory care staff consulted; no adverse overnight events reported to me; resting peacefully in bed; tentatively for discharge today; No N/V/F/C and no gross bleeding Objective Vital Signs - 12hr 03/17/22 03/17/22 03/17/22 04:30 05:00 05:30 Temperature Pulse Rate 64 80 97 H Pulse Rate [ 80 From Monitor] Respiratory 15 12 11 L Rate Blood Pressure 107/83 121/66 138/85 O2 Sat by Pulse 87 100 91 Oximetry 03/17/22 03/17/22 03/17/22 06:00 06:30 07:00 Temperature Pulse Rate 67 71 77 Pulse Rate [ From Monitor] Respiratory 14 12 12 Rate Blood Pressure 125/40 98/65 124/65 O2 Sat by Pulse 100 95 95 Oximetry 03/17/22 03/17/22 03/17/22 07:22 07:30 08:00 Temperature 97.6 F Pulse Rate 57 L 51 L Pulse Rate [ 55 L From Monitor] Respiratory 10 L 12 Rate Blood Pressure 111/66 104/71 O2 Sat by Pulse 63 L 100 Oximetry 03/17/22 03/17/22 03/17/22 08:30 09:00 09:30 Temperature Pulse Rate 76 85 83 Pulse Rate [ From Monitor] Respiratory 14 12 11 L Rate Blood Pressure 101/52 111/69 125/48 O2 Sat by Pulse 89 100 Oximetry 03/17/22 03/17/22 03/17/22 10:00 10:26 10:30 Temperature Pulse Rate 54 L 55 L 65 Pulse Rate [ From Monitor] Respiratory 12 11 L Rate Blood Pressure 112/60 106/53 100/53 O2 Sat by Pulse 100 100 Oximetry 03/17/22 03/17/22 03/17/22 11:00 11:30 11:48 Temperature 97.7 F Pulse Rate 63 75 Pulse Rate [ From Monitor] Respiratory 13 11 L Rate Blood Pressure 116/66 120/64 O2 Sat by Pulse 100 100 Oximetry 03/17/22 03/17/22 03/17/22 12:00 12:30 13:00 Temperature Pulse Rate 70 73 57 L Pulse Rate [ 55 L From Monitor] Respiratory 12 11 L 12 Rate Blood Pressure 101/63 119/60 118/62 O2 Sat by Pulse 100 100 99 Oximetry 03/17/22 03/17/22 03/17/22 13:30 14:00 14:30 Temperature Pulse Rate 88 70 67 Pulse Rate [ From Monitor] Respiratory 11 L 14 17 Rate Blood Pressure 123/68 109/56 104/54 O2 Sat by Pulse 99 91 100 Oximetry Constitutional: no acute distress Eyes: non-icteric ENT: oropharynx moist Neck: supple, no lymphadenopathy, no JVD Effort: normal Ascultation: Bilateral: clear, diminished breath sounds Percussion: Bilateral: not dull Cardiovascular: regular rate and rhythm Gastrointestinal: normoactive bowel sounds, soft, non-tender, non-distended Integumentary: other (see RN / [facility] notes) Extremities: no cyanosis, no edema, other (+ pedal contractures to legs) Neurologic: pupils equal and round, other (left hemipresis.) Psychiatric: mood appropriate, affect normal CBC and BMP: 03/17/22 04:33 03/17/22 04:33 ABG, PT/INR, D-dimer: PT/INR, D-dimer PT 16.0 Sec. (12.2-14.9) H 03/13/22 18:34 INR 1.15 (0.87-1.13) H 03/13/22 18:34 Abnormal lab findings: Abnormal Labs 03/13/22 03/13/22 03/13/22 18:34 18:34 18:34 WBC 4.2 L RBC 2.23 L Hgb 6.4 L Hct 20.1 L RDW 20.1 H [place] % (Auto) Lymph # (Auto) Seg Neuts % (Manual) Lymphocytes % (Manual) Lymphocytes # (Manual) Percent Retic PT 16.0 H INR 1.15 H APTT 39.9 H Potassium 2.3 L* Carbon Dioxide 33 H BUN 18 H Creatinine Glucose POC Glucose Lactic Acid Calcium Magnesium Lactate Dehydrogenase C-Reactive Protein NT-Pro-B Natriuret Pep Total Protein Albumin Urine WBC (Auto) SARS-CoV-2 (PCR) Crossmatch 03/13/22 03/13/22 03/13/22 18:34 18:34 Unknown WBC RBC Hgb Hct RDW [place] % (Auto) Lymph # (Auto) Seg Neuts % (Manual) Lymphocytes % (Manual) Lymphocytes # (Manual) Percent Retic PT INR APTT Potassium Carbon Dioxide BUN Creatinine Glucose POC Glucose Lactic Acid Calcium Magnesium Lactate Dehydrogenase C-Reactive Protein NT-Pro-B Natriuret Pep 2345 H Total Protein Albumin Urine WBC (Auto) 183.0 H SARS-CoV-2 (PCR) Crossmatch See Detail 03/14/22 03/14/22 03/14/22 06:09 06:09 07:09 WBC 3.4 L RBC 2.83 L Hgb 8.1 L Hct 25.6 L RDW 19.5 H [place] % (Auto) 9.7 H Lymph # (Auto) 0.8 L Seg Neuts % (Manual) Lymphocytes % (Manual) Lymphocytes # (Manual) Percent Retic PT INR APTT Potassium 3.0 L D Carbon Dioxide 33 H BUN 18 H Creatinine Glucose 166 H POC Glucose 151 H Lactic Acid Calcium 8.1 L Magnesium Lactate Dehydrogenase C-Reactive Protein NT-Pro-B Natriuret Pep Total Protein Albumin Urine WBC (Auto) SARS-CoV-2 (PCR) Crossmatch 03/14/22 03/14/22 03/14/22 11:09 13:17 13:17 WBC RBC Hgb Hct RDW [place] % (Auto) Lymph # (Auto) Seg Neuts % (Manual) Lymphocytes % (Manual) Lymphocytes # (Manual) Percent Retic 2.62 H PT INR APTT Potassium 3.2 L Carbon Dioxide BUN Creatinine Glucose POC Glucose 152 H Lactic Acid Calcium Magnesium Lactate Dehydrogenase 244 H C-Reactive Protein NT-Pro-B Natriuret Pep Total Protein Albumin Urine WBC (Auto) SARS-CoV-2 (PCR) Crossmatch 03/14/22 03/14/22 03/14/22 15:10 16:43 22:16 WBC RBC Hgb Hct RDW [place] % (Auto) Lymph # (Auto) Seg Neuts % (Manual) Lymphocytes % (Manual) Lymphocytes # (Manual) Percent Retic PT INR APTT Potassium Carbon Dioxide BUN Creatinine Glucose POC Glucose 131 H 199 H Lactic Acid Calcium Magnesium Lactate Dehydrogenase C-Reactive Protein NT-Pro-B Natriuret Pep Total Protein Albumin Urine WBC (Auto) SARS-CoV-2 (PCR) Positive A Crossmatch 03/14/22 03/15/22 03/15/22 23:26 05:11 11:35 WBC RBC Hgb 5.5 L* Hct 17.2 L* D RDW [place] % (Auto) Lymph # (Auto) Seg Neuts % (Manual) Lymphocytes % (Manual) Lymphocytes # (Manual) Percent Retic PT INR APTT Potassium Carbon Dioxide BUN Creatinine Glucose POC Glucose 158 H 111 H Lactic Acid Calcium Magnesium Lactate Dehydrogenase C-Reactive Protein NT-Pro-B Natriuret Pep Total Protein Albumin Urine WBC (Auto) SARS-CoV-2 (PCR) Crossmatch 03/15/22 03/15/22 03/15/22 21:31 21:31 21:31 WBC RBC 2.93 L Hgb 8.5 L D Hct 26.1 L D RDW 17.6 H [place] % (Auto) Lymph # (Auto) Seg Neuts % (Manual) 98.0 H Lymphocytes % (Manual) 2.0 L Lymphocytes # (Manual) 0.1 L Percent Retic PT INR APTT Potassium 2.9 L* Carbon Dioxide BUN 32 H Creatinine 0.7 L Glucose 123 H POC Glucose Lactic Acid Calcium 8.1 L Magnesium 1.60 L Lactate Dehydrogenase C-Reactive Protein NT-Pro-B Natriuret Pep Total Protein Albumin Urine WBC (Auto) SARS-CoV-2 (PCR) Crossmatch 03/15/22 03/15/22 03/16/22 21:31 21:31 04:56 WBC RBC 2.66 L Hgb 7.8 L Hct 23.9 L RDW 17.6 H [place] % (Auto) Lymph # (Auto) Seg Neuts % (Manual) Lymphocytes % (Manual) Lymphocytes # (Manual) Percent Retic PT INR APTT Potassium Carbon Dioxide BUN Creatinine Glucose POC Glucose Lactic Acid 2.60 H* Calcium Magnesium Lactate Dehydrogenase C-Reactive Protein 8.10 H NT-Pro-B Natriuret Pep Total Protein 5.6 L Albumin 2.5 L Urine WBC (Auto) SARS-CoV-2 (PCR) Crossmatch 03/16/22 03/16/22 03/16/22 04:56 07:31 11:03 WBC RBC Hgb Hct RDW [place] % (Auto) Lymph # (Auto) Seg Neuts % (Manual) Lymphocytes % (Manual) Lymphocytes # (Manual) Percent Retic PT INR APTT Potassium 3.3 L Carbon Dioxide BUN 28 H Creatinine 0.6 L Glucose 68 L POC Glucose 63 L 50 L Lactic Acid Calcium 8.1 L Magnesium Lactate Dehydrogenase C-Reactive Protein NT-Pro-B Natriuret Pep Total Protein 5.2 L Albumin 2.4 L Urine WBC (Auto) SARS-CoV-2 (PCR) Crossmatch 03/16/22 03/16/22 03/16/22 16:20 18:46 22:11 WBC RBC Hgb 8.1 L Hct 24.3 L RDW [place] % (Auto) Lymph # (Auto) Seg Neuts % (Manual) Lymphocytes % (Manual) Lymphocytes # (Manual) Percent Retic PT INR APTT Potassium Carbon Dioxide BUN Creatinine Glucose POC Glucose 127 H 110 H Lactic Acid Calcium Magnesium Lactate Dehydrogenase C-Reactive Protein NT-Pro-B Natriuret Pep Total Protein Albumin Urine WBC (Auto) SARS-CoV-2 (PCR) Crossmatch 03/17/22 03/17/22 03/17/22 04:33 04:33 11:24 WBC 4.2 L RBC 2.59 L Hgb 7.8 L Hct 23.2 L RDW 17.9 H [place] % (Auto) Lymph # (Auto) Seg Neuts % (Manual) Lymphocytes % (Manual) Lymphocytes # (Manual) Percent Retic PT INR APTT Potassium 3.5 L Carbon Dioxide BUN 23 H Creatinine 0.6 L Glucose 116 H POC Glucose 126 H Lactic Acid Calcium 8.2 L Magnesium Lactate Dehydrogenase C-Reactive Protein NT-Pro-B Natriuret Pep Total Protein Albumin Urine WBC (Auto) SARS-CoV-2 (PCR) Crossmatch Allied health notes reviewed: nursing
[2022-03-17 17:16] VITALS: BP 105/66
--- NOTE | 2022-03-18 00:50 | Consultation ---
DATE OF CONSULTATION: 03/17/2022 REFERRING PHYSICIAN: Dr. Bennett Mendez. INDICATION: Rectal bleeding. HISTORY OF PRESENT ILLNESS: The patient is an 81-year-old black female with a significant past medical history of hypertension, diabetes, CVA, presented to the Emergency Room with mental status change and anemia. The patient has no history of prior GI bleeding. The patient was also noted to be with a low potassium. The patient subsequently was admitted and GI consulted to aid in management. No other specific GI complaints. PAST MEDICAL HISTORY: 1. Diabetes. 2. Hypertension. 3. Status post cerebrovascular accident. 4. Prostate cancer. MEDICATIONS: Reviewed and updated in chart. ALLERGIES: No known drug allergies. SOCIAL HISTORY: Denies alcohol, tobacco. Lives in a care facility. FAMILY HISTORY: Negative for colon cancer, IBD or liver disease. REVIEW OF SYSTEMS: GENERAL: Reports some weakness. HEENT: Denies visual complaints or tinnitus. PULMONARY: No shortness of breath, chest pain. GASTROINTESTINAL: Reported blood in the stool. All points of 13-point review of systems negative. PHYSICAL EXAMINATION: VITAL SIGNS: Temperature 98.7, pulse 67, respirations 18, blood pressure 100/60. GENERAL: Fairly nourished with no acute distress. HEENT: Pupils round, reactive. PULMONARY: Rhonchi. CARDIOVASCULAR: Regular rate and rhythm. ABDOMEN: Soft. SKIN: No obvious rashes. LABORATORY DATA: Pertinent for white count of 4.2, hemoglobin and hematocrit of 7.8 and 23.2, platelet count of 196. Chem-[address] abdomen and pelvis on 03/14/2022 showed no signs of bleeding. ASSESSMENT: An 82-year-old male with past medical history noted above, presented initially with anemia, metabolic derangements, now reportedly overnight noted to have dark stools with heme positive. The patient since admission has shown no signs of bleeding. Given overall status, we would want to treat conservatively at this time with no plans to scope. PLAN: 1. Follow hematocrit and transfuse as needed. 2. Hematology consultation noted and we will follow recommendations. 3. PPI IV daily. 4. No plans to scope at this time. 5. We will follow further recommendation based on progress. TID: [id number] RECEIPT: [id number] [facility]
[2022-03-18 21:04] LABS: Gamma Globulin 1.3 g/dL (0.8-1.7)
== END 2022-03-17 17:34 | DRG 811 ==
LOC: ED 17:25 → 3A 22:41 → EDSEX 22:41 → 3A 03-14 18:04 → CC1 03-15 00:53 → IMCU 03-17 03:52
PROVIDERS: ADMIT Internal Medicine Geriatric Medicine; ATTEND Internal Medicine
PROC: 30233N1 Transfusion of Nonautologous Red Blood Cells into Peripheral Vein, Percutaneous Approach (ICD-10-PCS; principal; 2022-03-13)
DX: D64.9 Anemia, unspecified (principal); G93.41 Metabolic encephalopathy; U07.1 COVID-19; N30.01 Acute cystitis with hematuria; J91.8 Pleural effusion in other conditions classified elsewhere; I69.354 Hemiplegia and hemiparesis following cerebral infarction affecting left non-dominant side; I48.91 Unspecified atrial fibrillation; E87.6 Hypokalemia; E11.9 Type 2 diabetes mellitus without complications; I50.9 Heart failure, unspecified; I95.9 Hypotension, unspecified; I11.0 Hypertensive heart disease with heart failure; C61 Malignant neoplasm of prostate; Z79.4 Long term (current) use of insulin
CPT/HCPCS: 36415; 71045; 71250; 74174; 80048; 80053; 80076; 81001; 82140; 82270; 82962; 83615; 83735; 83880; 84100; 84132; 84145; 84165; 84443; 85007; 85014; 85018; 85025; 85027; 85045; 85049; 85610; 85730; 86140; 86334; 86850; 86880; 86900; 86901; 86920; 87040; 87086; 93005; 93306; 94760; 99285; G0378; J3490; Q9967; C8929; C9113; J0282; J0696; J1644; J1815; J3475; J3480; J7030; J7040; J7050; J8540; P9016; U0003